=== PATIENT | female | born 1960 | race Caucasian/White ===

== ENCOUNTER 2020-01-15 13:26 | Outpatient (REF) | payer OTHER, SELFPAY ==
--- NOTE | 2020-01-15 13:30 | MM_ITS ---
EXAMINATION: MM SCREENING DIGITAL BREAST TOMOSYNTHESIS, BILATERAL CLINICAL INFORMATION: Screening. Asymptomatic. The lifetime risk of breast cancer based on the Tyrer-Cuzick Model is 7.2%. COMPARISON: Mammography: 06/12/2017 and studies dating back to 02/07/2012. TECHNIQUE: Digital breast tomosynthesis is performed in both the craniocaudal and mediolateral oblique views along with computer-aided detection (CAD). Synthesized 2D images are generated from the tomosynthesis. FINDINGS: The breasts are heterogeneously dense, which may obscure small masses (ACR BI-RADS breast composition Category c). There is a stable parenchymal pattern of the right breast with some stable circumscribed densities some of which had been shown to represent cysts previously. Within the upper outer aspect of the left breast approximately 6 cm from the nipple there is a questioned region of architectural distortion which is more prominent than on prior studies. Recommend spot compression views and ultrasound if needed. MM/MM tomosynthesis screening BI IMPRESSION: Region of architectural distortion upper outer aspect of the left breast. ASSESSMENT: BI-RADS 0: Incomplete - Need Additional Imaging Evaluation RECOMMENDATION: 1. Additional views of the left breast. 2. Targeted ultrasound if warranted after review of the additional views. 3. Radiology department staff will contact the patient for additional imaging. This patient's information was entered into a reminder system with a target due date for their next mammogram.
== END 2020-01-15 13:27 | disposition home or self-care (01) ==
LOC: HO.MAMMO 13:26
PROVIDERS: Visit Provider Internal Medicine
DX: Z12.31 Encounter for screening mammogram for malignant neoplasm of breast (principal)
CPT/HCPCS: 77063; 77067

== ENCOUNTER 2020-06-16 10:21 | Outpatient (REF) | payer SELFPAY ==
[2020-06-16 10:42] LABS: MANUAL DIFF FLAG NO
[2020-06-16 11:09] LABS: Basophils Absolute Auto 0.1 X10*3/uL (0.0-0.2); Basophils Percent Auto 0.5 % (0-2); Eosinophils Absolute Auto 0.2 X10*3/uL (0.0-0.4); Eosinophils Percent Auto 2.2 % (0-4); Hematocrit 39.1 % (37-47); Imm Gran Abs Auto 0.02 X10*3/uL (0.00-0.03); Imm Gran Pct Auto 0.2 % (0.0-0.4); Lymphocytes Absolute Auto 2.7 X10*3/uL (1.2-4.9); Lymphocytes Percent Auto 28.9 % (20-40); Mean Corpuscular HGB Conc 33.2 g/dl (31.0-35.0); Mean Corpuscular Hemoglobin 33.5 pg (27.0-33.0); Mean Corpuscular Volume 100.8 fL (80-98); Mean Platelet Volume 11.1 fL (9.4-12.3); Monocytes Absolute Auto 0.7 X10*3/uL (0.1-1.2); Monocytes Percent Auto 7.2 % (2-11); Neutrophils Absolute Auto 5.7 X10*3/uL (2.0-8.3); Platelet Count 255 X10*3/uL (160-400); Red Blood Count 3.88 X10*6/uL (4.20-5.50); Red Cell Distribution Width 11.9 % (11.0-16.0); White Blood Count 9.4 X10*3/uL (4.8-10.8)
[2020-06-16 11:39] LABS: Glucose Urine UA NEG (NEG); Leukocyte Esterase Urine 2+ (NEG); Nitrite Urine NEG (NEG); PH 7.5 (5.0-8.0); Specific Gravity - Urine <= 1.005 (1.005-1.025); Urine Blood NEG (NEG); Urine Ketones NEG (NEG); Urine Protein NEG (NEG-TRACE)
[2020-06-16 11:42] LABS: Appearance Urine HAZY; Color Urine YELLOW
[2020-06-16 12:00] LABS: Bacteria Urine 2+ /LPF; RBC Urine 0 /HPF (0); Squamous Epithelial Cell Urine 2+ /LPF
[2020-06-16 12:09] LABS: Vitamin D 25-OH Total 65.3 ng/mL (>30)
[2020-06-16 12:21] LABS: Alanine Aminotransferase 44 U/L (0-31); Albumin Level 4.3 g/dL (3.5-5.0); Alkaline Phosphatase 55 U/L (39-117); Anion Gap 17 (12-20); Aspartate Amino Transferase 46 U/L (5-31); Blood Urea Nitrogen 9 mg/dL (9-16); Calcium 9.2 mg/dL (8.4-10.2); Carbon Dioxide 29 mmol/L (22-29); Chloride 95 mmol/L (96-108); Cholesterol 237 mg/dL; Estimated Glomerular Filt Rate > 60; Glucose Fasting 90 mg/dL (60-99); HDL Cholesterol 52 mg/dL; LDL Cholesterol Calculated 139 mg/dl; Potassium 3.6 mmol/L (3.3-5.1); Sodium 137 mmol/L (135-145); Total Protein 6.6 g/dL (6.5-8.0); Triglycerides 232 mg/dL
[2020-06-16 13:22] LABS: Folate > 20.0 ng/mL (> or = 4.0); Vitamin B12 679 pg/mL (200-900)
== END 2020-06-16 10:22 | disposition home or self-care (01) ==
LOC: HO.LNP 10:21
PROVIDERS: Visit Provider Internal Medicine
DX: Z00.00 Encounter for general adult medical examination without abnormal findings (principal); I10 Essential (primary) hypertension; R79.89 Other specified abnormal findings of blood chemistry; E78.2 Mixed hyperlipidemia; R73.9 Hyperglycemia, unspecified; E53.8 Deficiency of other specified B group vitamins
CPT/HCPCS: 80053; 80061; 81001; 81003; 82306; 82607; 82746; 85025

== ENCOUNTER 2021-01-18 07:47 | Day surgery (SDC) | payer OTHER, SELFPAY ==
[2021-01-12 09:54] VITALS: BMI 28.3
--- NOTE | 2021-01-15 08:41 | HO.ANESPROP2 ---
Documented by User: Jahaira Tate NP 01/15/21 08:41 HPI - Anesthesia Eval Consult details Narrative: 60yo F for Upper Endoscopy and Colonoscopy [facility] Past Medical History Medical History (Updated 01/12/21 @ 09:45 by Teressa Reyes RN) Anxiety Asthma Depression Elevated cholesterol HTN (hypertension) Surgical History Surgical History (Updated 01/12/21 @ 09:46 by Teressa Reyes RN) H/O colonoscopy History of vocal cord polypectomy Social History Social History (Updated 01/18/21 @ 07:56 by Kevin Perez RN) Patient Tobacco Use Status: Never used Tobacco Second Hand Smoke Exposure: No Use of substances other than those prescribed or required for medical reasons: Yes Substance Use Type: Marijuana Advance Directives Information Provided: Yes (informational brochure mailed) Advance Directives on File: No Meds Allergies Allergy/AdvReac Type Severity Reaction Status Date / Time No Known Allergies Allergy Unverified 12/05/19 15:25 [No Known Allergies*] Home Medications Medication Instructions Recorded Confirmed Last Taken Type Avalide 1 tab PO DAILY 01/12/21 01/12/21 Unknown History albuterol sulfate 90 mcg/actuation 2 puff INHALATION Q4-6H PRN 01/12/21 01/12/21 Unknown History aerosol inhaler (Ventolin HFA) ascorbic acid (vitamin C) 500 mg 500 mg PO DAILY 01/12/21 01/12/21 Unknown History tablet (Vitamin C) atorvastatin 10 mg tablet 10 mg PO BEDTIME 01/12/21 01/12/21 Unknown History omeprazole 20 mg capsule,delayed 20 mg PO DAILY 01/12/21 01/12/21 Unknown History release sertraline 25 mg tablet (Zoloft) 25 mg PO DAILY 01/12/21 01/12/21 01/18/21 History vitamin B complex 1 tab PO DAILY 01/12/21 01/12/21 Unknown History Exam Exam Date and Time: January 15, 2021 0841 Height,Weight and Vital Signs: Height 5 ft 4 in Weight 74.843 kg Assessment and Plan Assessment Anesthesia Assessment: Chart Reviewed Documented by User: Milka Phan MD 01/18/21 08:08 [facility] Past Medical History Medical History (Updated 01/12/21 @ 09:45 by Teressa Reyes, KIRBY) Anxiety Asthma Depression Elevated cholesterol HTN (hypertension) Family History Family history of problems with anesthesia: No Surgical History Surgical History (Updated 01/12/21 @ 09:46 by Teressa Reyes RN) H/O colonoscopy History of vocal cord polypectomy History of Problems with Anesthesia: No Social History Social History (Updated 01/18/21 @ 07:56 by Kevin Perez RN) Patient Tobacco Use Status: Never used Tobacco Second Hand Smoke Exposure: No Use of substances other than those prescribed or required for medical reasons: Yes Substance Use Type: Marijuana Advance Directives Information Provided: Yes (informational brochure mailed) Advance Directives on File: No Meds Allergies Allergy/AdvReac Type Severity Reaction Status Date / Time No Known Allergies Allergy Unverified 12/05/19 15:25 [No Known Allergies*] Home Medications Medication Instructions Recorded Confirmed Last Taken Type Avalide 1 tab PO DAILY 01/12/21 01/12/21 Unknown History albuterol sulfate 90 mcg/actuation 2 puff INHALATION Q4-6H PRN 01/12/21 01/12/21 Unknown History aerosol inhaler (Ventolin HFA) ascorbic acid (vitamin C) 500 mg 500 mg PO DAILY 01/12/21 01/12/21 Unknown History tablet (Vitamin C) atorvastatin 10 mg tablet 10 mg PO BEDTIME 01/12/21 01/12/21 Unknown History omeprazole 20 mg capsule,delayed 20 mg PO DAILY 01/12/21 01/12/21 Unknown History release sertraline 25 mg tablet (Zoloft) 25 mg PO DAILY 01/12/21 01/12/21 01/18/21 History vitamin B complex 1 tab PO DAILY 01/12/21 01/12/21 Unknown History Exam Airway Mallampati Class: II (Upper front cap) TM Dist: >3cm Neck ROM: Full Heart: rrr Lungs: cta Assessment and Plan Assessment Anesthesia Assessment: Anesthesia Plan Discussed and Chart Reviewed Final Anesthetic Review Family History of Problems with Anesthesia: No History of Problems with Anesthesia: No NPO: Yes ASA Class: II Final Preanesthetic Review: No Changes in Pt Med Stat, Meds/Allgs Chart Reviewed and Consent Obtained/Reviewed Patient Risk: Intermediate Procedure Risk: Intermediate Anesthetic Plan Anesthetic Plan: MAC: Disposition: Standard PACU
[2021-01-18 08:05] VITALS: BP 153/85; PULSE 81; RESP 16; TEMP 36.4; O2SAT 97
[2021-01-18] MEDS: Lactated Ringers 1,000 ML 100 ML IVCONT (08:31)
[2021-01-18] MEDS: Midazolam HCl/PF 2 MG/2 ML VIAL IVPUSH (08:31)
[2021-01-18 10:09] VITALS: BP 123/54; PULSE 71; RESP 20; TEMP 36.9; O2SAT 95
--- NOTE | 2021-01-18 10:10 | P.BOP_ITS ---
Brief Operative Note Date of Service: 01/18/21 Pre-op diagnosis: GERD, Screening Post-op diagnosis: other (Gastritis, Hiatal hernia, Colon polyps) Procedure: EGD with biopsies, Colonoscopy to the cecum and TI with biopsy and removal of polyps Surgeon: Felipe Corral Anesthesia: MAC Was an [employer] used for this Procedure?: No Estimated blood loss (mL): 3.0 Pathology: other (A. Gastric antrum B. Cecal polyp C. Transverse colon polyp) Condition: stable Disposition: PACU
[2021-01-18 10:25] VITALS: BP 128/83; PULSE 68; RESP 18; TEMP 36.7; O2SAT 95
--- NOTE | 2021-01-18 10:43 | OP_ITS ---
SURGEON: Felipe Corral MD INDICATIONS: The patient presents for evaluation of gastroesophageal reflux, personal history of tubular adenoma of the colon, and need for colorectal cancer screening. Full consent has been obtained from her for this, including risks of bleeding and perforation. PREOPERATIVE DIAGNOSIS: POSTOPERATIVE DIAGNOSIS: PROCEDURE PERFORMED: Esophagogastroduodenoscopy with biopsy, and colonoscopy to the cecum and terminal ileum with biopsy and removal of polyps. ESTIMATED BLOOD LOSS: COMPLICATIONS: ANESTHESIA: Monitored anesthesia care. ASSISTANTS: SPECIMENS: PREOPERATIVE DIAGNOSES: Gastroesophageal reflux, colorectal cancer screening, and personal history of tubular adenoma of the colon. POSTOPERATIVE DIAGNOSES: Gastroesophageal reflux, colorectal cancer screening, and personal history of tubular adenoma of the colon, small hiatal hernia, gastritis, colon polyps, diverticulosis and internal hemorrhoids. DESCRIPTION OF PROCEDURE: The patient was placed in the left lateral decubitus position. The Olympus video gastroscope was passed in the posterior oropharynx and upper esophagus under direct vision. The scope was passed slowly into the distal esophagus. The gastroesophageal junction appeared normal at 38 cm. There was no sign of any esophagitis nor Schmidt's esophagus. There were no varices. The scope entered into the stomach. There was a small hiatal hernia. The scope was advanced to pylorus and duodenum was cannulated to the descending portion. The duodenum including the bulb appeared normal without mass or ulceration. The scope was withdrawn back into the stomach. The gastric antrum and body had changes of some edema and erythema, but no erosions or ulceration. There was good peristalsis. Biopsies were obtained from the gastric antrum. Scope was retroflexed visualizing the proximal stomach carefully, which appeared normal, without any sign of mass, ulceration, varices, nor portal gastropathy. The scope was straightened out and withdrawn back into the esophagus. The esophageal mucosa appeared normal. Scope was withdrawn from the patient. She was turned around for colonoscopy. The digital rectal exam revealed no abnormalities. The Olympus video pediatric colonoscope was entered into the rectum and advanced easily to the cecum. Once in the cecum, I did identify normal-appearing cecal pouch with appendiceal orifice and a normal-appearing ileocecal valve. The terminal ileum was cannulated and appeared normal. The scope was withdrawn back in the colon. The entire cecum and ileocecal valve appeared normal. The scope was slowly withdrawn assessing all mucosal surfaces carefully. There was a fair amount of some liquid greenish stool throughout the colon, but this was all irrigated copiously and suctioned away. For the most part, preparation was very good. In the cecum and transverse colon, were flat less than 5 mm polyps, which were each biopsied and completely removed with cold biopsy forceps. I did not visualize any other polyps, colitis, nor angiodysplasia. There was a moderate amount of sigmoid diverticulosis. The colon did appear somewhat edematous, but there was no colitis. In the rectum, scope was retroflexed visualizing internal hemorrhoids, but no other pathology. The rectal mucosa appeared normal. The scope was straightened out and withdrawn from the patient. She tolerated the both procedures well and was returned to recovery area in stable condition. IMPRESSION: 1. Colon polyps, status post biopsy and removal. 2. Diverticulosis. 3. Internal hemorrhoids. 4. Small hiatal hernia. 5. Gastritis. PLAN: The results of the biopsy will be checked. I would recommend a repeat colonoscopy in 5 years for further surveillance. She will continue her daily omeprazole. As in the past, she has been advised to eliminate alcohol from her lifestyle. She will see me otherwise on a p.r.n. basis. MD KRISTA Tan/JANAK / [id number]
== END 2021-01-18 11:16 | disposition home or self-care (01) ==
PROVIDERS: PCP Internal Medicine; Visit Provider Internal Medicine
PROC: (CPT 45380; principal; 2021-01-18 09:10)
DX: Z12.11 Encounter for screening for malignant neoplasm of colon (principal); Z86.010 Personal history of colon polyps; D12.0 Benign neoplasm of cecum; D12.3 Benign neoplasm of transverse colon; K57.30 Diverticulosis of large intestine without perforation or abscess without bleeding; K64.8 Other hemorrhoids; K21.9 Gastro-esophageal reflux disease without esophagitis; K29.50 Unspecified chronic gastritis without bleeding; K44.9 Diaphragmatic hernia without obstruction or gangrene; R74.8 Abnormal levels of other serum enzymes; J45.909 Unspecified asthma, uncomplicated; I10 Essential (primary) hypertension; Z79.899 Other long term (current) drug therapy; F12.90 Cannabis use, unspecified, uncomplicated
CPT/HCPCS: 45380; 43239; 88305; 88342; J2250; J3010

== ENCOUNTER 2021-03-02 07:15 | Outpatient (REF) | payer OTHER, SELFPAY ==
--- NOTE | ~2021-03-02 | XR_ITS ---
EXAMINATION: XR KNEES STANDING, BILATERAL XR KNEE, RIGHT CLINICAL INFORMATION: Pain in unspecified knee. COMPARISON: None TECHNIQUE: AP standing view of both knees is obtained. Lateral and sunrise views of the right knee are obtained. FINDINGS: RIGHT KNEE: There is no acute fracture, malalignment, or joint effusion. There is a tiny lateral patellar marginal spur. There is [id number] narrowing in the medial compartment with small marginal osteophytes. There is a small loose body in the anterior joint. LEFT KNEE: Limited AP view demonstrates mild medial compartment narrowing. XR/XR knee RT 2V IMPRESSION: RIGHT KNEE: Moderate medial compartment osteoarthritis. Anterior loose body. LEFT KNEE: Limited AP view demonstrates mild medial compartment narrowing.
--- NOTE | ~2021-03-02 | XR_ITS ---
EXAMINATION: XR KNEES STANDING, BILATERAL XR KNEE, RIGHT CLINICAL INFORMATION: Pain in unspecified knee. COMPARISON: None TECHNIQUE: AP standing view of both knees is obtained. Lateral and sunrise views of the right knee are obtained. FINDINGS: RIGHT KNEE: There is no acute fracture, malalignment, or joint effusion. There is a tiny lateral patellar marginal spur. There is shkq-fl-yyesqbpa narrowing in the medial compartment with small marginal osteophytes. There is a small loose body in the anterior joint. LEFT KNEE: Limited AP view demonstrates mild medial compartment narrowing. XR/XR knee standing BI IMPRESSION: RIGHT KNEE: Moderate medial compartment osteoarthritis. Anterior loose body. LEFT KNEE: Limited AP view demonstrates mild medial compartment narrowing.
== END 2021-03-02 07:16 | disposition home or self-care (01) ==
LOC: HO.HOSX 07:15
PROVIDERS: Visit Provider Physician Assistant
DX: M17.11 Unilateral primary osteoarthritis, right knee (principal)
CPT/HCPCS: 20610; 73560; 73565; J1040

== ENCOUNTER 2021-03-16 11:17 | Outpatient (REF) | payer OTHER, SELFPAY ==
--- NOTE | ~2021-03-16 | MM_ITS ---
EXAMINATION: MM SCREENING DIGITAL BREAST TOMOSYNTHESIS, BILATERAL CLINICAL INFORMATION: Screening. Asymptomatic. The lifetime risk of breast cancer based on the Tyrer-Cuzick Model is 7%. COMPARISON: Mammography: 01/15/2020, 06/12/2017, 12/29/2015, 06/23/2015, 06/02/2015 TECHNIQUE: Digital breast tomosynthesis is performed in both the craniocaudal and mediolateral oblique views along with computer-aided detection (CAD). Synthesized 2D images are generated from the tomosynthesis. FINDINGS: The breasts are heterogeneously dense, which may obscure small masses (ACR BI-RADS breast composition Category c). There are no significant masses, abnormal calcifications, or other abnormalities. There is no architectural abnormality or developing density. There is fine fibronodular parenchymal pattern similar to prior exams. Scattered punctate regional calcifications in the upper outer quadrant are stable. The axilla and skin contours are unremarkable. MM/MM tomosynthesis screening BI IMPRESSION: No mammographic evidence of malignancy. ASSESSMENT: BI-RADS 2: Benign RECOMMENDATION: Routine annual mammography screening. This patient's information was entered into a reminder system with a target due date for their next mammogram.
--- NOTE | ~2021-03-16 | MM_ITS ---
EXAMINATION: BONE DENSITOMETRY CLINICAL INDICATION: Osteopenia. COMPARISON: Previous BD dated 05/01/2018 and baseline BD dated 12/29/2015. TECHNIQUE: Using a Woto DXA System (software version: 13.1) manufactured by [employer], dual-energy x-ray absorptiometry was performed of the lumbar spine and left hip. The images are of good technical quality. Summary results are attached. FINDINGS: AP SPINE L1-L4: Current: BMD 0.999 g/cm2, Z-score -0.6, T-score -1.5, osteopenia, 2.1% increase from previous, 4.3% increase from baseline (<5% change is not significant). Prior: BMD 0.978 g/cm2. Baseline: BMD 0.958 g/cm2. LEFT FEMUR, NECK: Current: BMD 0.866 g/cm2, Z-score -0.2, T-score -1.2, osteopenia. Prior: BMD 0.824 g/cm2. Baseline: BMD 0.856 g/cm2. LEFT FEMUR, TOTAL: Current: BMD 0.898 g/cm2, Z-score -0.2, T-score -0.9, normal, 1.6% increase from previous, 2.4% increase from baseline (<5% change is not significant). Prior: BMD 0.884 g/cm2. Baseline: BMD 0.877 g/cm2. IDENTIFIED RISK FACTORS: Rheumatoid arthritis, menopause. HISTORY OF FRACTURE: Ankle (noted on prior bone density report 2019). MEDICATIONS: Calcium supplements or multivitamin, vitamin D. MM/XR DEXA axial skeleton IMPRESSION: 1. DIAGNOSIS: Osteopenia based on the lowest T-score value of -1.5 in the lumbar spine applying World Health Organization criteria. 2. 10-YEAR FRACTURE RISK PREDICTION, FRAX: Major osteoporotic fracture (clinical spine, forearm, hip or shoulder) 9.3%. Hip fracture 0.7%. 3. Treatment Recommendations: NOF guidelines recommend consideration for treatment in postmenopausal women and men age 50 and older presenting with the following: -A hip or vertebral (clinical or morphometric) fracture. -T-score less than or equal to -2.5 at the femoral neck or spine after appropriate evaluation to exclude secondary causes. -Low bone mass at the hip or spine and a 10-year fracture probability by FRAX of greater than or equal to 3% for hip fracture or greater than or equal to 20% for major osteoporotic fracture based on the [place] adapted WHO algorithm. 4. Other Recommendations: All treatment decisions require clinical judgment and consideration of individual patient factors, including patient preferences, comorbidities, previous drug use, risk factors not captured in the FRAX model (e.g. frailty, falls, vitamin D deficiency, increased bone turnover, interval significant decline in bone density) and possible under or overestimation of fracture risk by FRAX. Additional medical evaluation for secondary cause of low bone mineral density may be appropriate. FUTURE SCAN RECOMMENDATION: People with diagnosed cases of osteoporosis or at high risk for fracture should have regular bone mineral density tests. For patients eligible for Medicare, routine testing is allowed once every 2 years. The testing frequency can be increased to one year for patients who have rapidly progressing disease, those who are receiving or discontinuing medical therapy to restore bone mass, or have additional risk factors.
== END 2021-03-16 11:18 | disposition home or self-care (01) ==
LOC: HO.MAMMO 11:17
PROVIDERS: Visit Provider Internal Medicine
DX: Z12.31 Encounter for screening mammogram for malignant neoplasm of breast (principal); Z13.820 Encounter for screening for osteoporosis; M85.80 Other specified disorders of bone density and structure, unspecified site; Z78.0 Asymptomatic menopausal state; M05.9 Rheumatoid arthritis with rheumatoid factor, unspecified; Z79.899 Other long term (current) drug therapy
CPT/HCPCS: 77063; 77067; 77080

== ENCOUNTER 2021-07-27 12:21 | Outpatient (REF) | payer OTHER, SELFPAY ==
--- NOTE | ~2021-07-27 | XR_ITS ---
EXAMINATION: XR KNEE, LEFT CLINICAL INFORMATION: Knee pain. COMPARISON: Left knee 03/02/2021. TECHNIQUE: Lateral and sunrise view of the left knee. FINDINGS: There is minimal loss of lateral patellofemoral compartment joint space but no abnormal joint effusion seen. Previously medial compartment joint space narrowing was noted. AP view is not obtained. There is no abnormal joint effusion. No bony erosive changes. XR/XR knee LT 2V IMPRESSION: Minimal degenerative changes patellofemoral compartment. On previous AP view medial compartment joint space was narrowed as well. No abnormal joint effusion or loose body seen.
== END 2021-07-27 12:22 | disposition home or self-care (01) ==
LOC: HO.HOSX 12:21
PROVIDERS: PCP Internal Medicine; Visit Provider Physician Assistant
DX: M76.72 Peroneal tendinitis, left leg (principal)
CPT/HCPCS: 73560

== ENCOUNTER 2021-11-30 15:15 | Outpatient (REF) | payer OTHER, SELFPAY ==
--- NOTE | ~2021-11-30 | US_ITS ---
EXAMINATION: US VENOUS ULTRASOUND WITH DOPPLER LOWER EXTREMITY, LEFT CLINICAL INFORMATION: Left lower extremity pain COMPARISON: Bilateral DVT study 06/29/2018 TECHNIQUE: Ultrasound of the deep veins is performed from the hip to the calf with compression sonography and color and pulse Doppler assessment. Spectral analysis with color-flow imaging is performed. FINDINGS: There is normal venous compression and respiratory variation and augmented flow. The visualized common femoral vein, superficial femoral vein, profunda femoral vein, popliteal vein, and the trifurcation region shows no evidence of deep venous thrombosis. There is a fluid collection seen extending from the popliteal fossa to the mid calf measuring 6.1 x 2.4 cm which contains a single septation. If the patient's symptoms persist, followup ultrasound in 5 days 7 days might be of value to exclude proximal propagation from a non-visualized calf vein. US/US venous duplex LE IMPRESSION: No DVT demonstrated in the left lower extremity.
[2021-11-30 16:16] LABS: Appearance Urine Clear; Color Urine Yellow; Glucose Urine UA Negative (Negative); Leukocyte Esterase Urine Trace (Negative); Nitrite Urine Negative (Negative); UMIC TRIGGER UA YES; Urine Blood Negative (Negative); Urine Ketones Trace mg/dL (Negative); Urine Protein Negative (Neg-Trace)
[2021-11-30 16:20] LABS: Bacteria Urine None Seen (None Seen); Hyaline Casts Urine 0-2 /LPF (0-2); RBC Urine 0-2 /HPF (0-2); Squamous Epithelial Cell Urine 0-2 /HPF (0-2); WBC Urine 0-5 /HPF (0-5)
== END 2021-11-30 15:16 | disposition home or self-care (01) ==
LOC: HO.US 15:15
PROVIDERS: PCP Internal Medicine; Visit Provider Internal Medicine
DX: I82.562 Chronic embolism and thrombosis of left calf muscular vein (principal); R35.89 Other polyuria
CPT/HCPCS: 81001; 87086; 93971

== ENCOUNTER → 2021-12-16 10:11 | Outpatient (BNVA) | payer OTHER, SELFPAY | PROVIDERS: PCP Internal Medicine; Visit Provider Physician Assistant | DX: M17.11 Unilateral primary osteoarthritis, right knee (principal); M17.12 Unilateral primary osteoarthritis, left knee | CPT/HCPCS: 20610; J1040 ==

== ENCOUNTER 2022-11-14 14:55 | Outpatient (AMB) | payer OTHER, SELFPAY ==
--- NOTE | 2022-11-14 15:09 | MHC.OFFVIS ---
Intake Vital Signs 11/14/22 15:11 Height 5 ft 4 in Weight 165 lb BMI 28.3 Intake Visit Reasons: OV- RT Knee pain Last INJ 12/16/21 Intake Note: Tameka a 62 year old female who presents today for a follow up of right knee. Patient reports last injection lasted until recently and would like to repeat injection today. Allergies No Known Allergies [No Known Allergies*] Allergy (Unverified 12/16/21 10:52) HPI OV- RT Knee pain Last INJ 12/16/21 HPI Details 62-year-old female who presents in the office today for a follow up of right knee pain. The patient had a cortisone injection in the right knee on 12/16/2021. She reports the last injection last until recently. She would like another cortisone injection while in the office today. [facility] Medical History Anxiety Asthma Depression Elevated cholesterol HTN (hypertension) Surgical History H/O colonoscopy History of vocal cord polypectomy Social History Household Members: Spouse Patient Tobacco Use Status: Never used Tobacco Second Hand Smoke Exposure: No Substance Use Type: Marijuana Current occupational status: retired Current occupation: rt handed Review of Systems Const All systems reviewed & are unremarkable except as noted in HPI and below Physical Exam Vital Signs: BMI result Body Mass Index 28.3 Const General: cooperative, healthy appearing and no acute distress Resp Effort & Inspection: normal respiratory effort and able to speak in complete sentences Cardio Rate: regular rate Peripheral pulses: Peripheral pulses 2+ throughout GI Palpation (GI): Soft to palpation Skin Lesions: no lesions Rashes: no rashes Extrem Other: Right knee: Normal to inspection. No ecchymosis, erythma, or joint effusion. Patient is able to achieve full range of motion. There is crepitus felt with knee range of motion. Slight tenderness to palpation over the medial joint line. No tenderness to palpation over lateral joint line. Negative Guanako's. Negative anterior drawer. NVI. Office Procedures Joint Injection/Drain Joint Injection/Drain Primary Site: right knee Prep: site was prepped using aseptic technique, ethochloride spray was applied and injection warnings given Injected: 80 mg of, DepoMedrol, with 8 mL of (2% plain lido ) and in the joint Approach Used: anterolateral Procedure: The patient tolerated the procedure well, but had some pain with the injection and there was some relief with the local anesthesia Coding - Large joint Procedure code (CPT) selection complete Results Reviewed Results Reviewed: 11/14/22 15:09 Lidocaine HCl 2 % MPF [Xylocaine 2 % MPF] 5 ml .ROUTE .STK-MED ONE methylPREDNISolone acetate [DEPO-MedroL] 80 mg .ROUTE .STK-MED ONE Assessment & Plan Assessment & Plan (1) Osteoarthritis of right knee: Code(s): M17.11 - Unilateral primary osteoarthritis, right knee Plan Ms. Griggs is a 62-year-old female who presents in the office today for a follow up of right knee pain. The patient had a cortisone injection in the right knee on 12/16/2021. She reports the last injection last until recently. She would like another cortisone injection while in the office today. The patient was offered a cortisone injection in the right knee with 80 mg of DepoMedrol. The patient was explained the risk, benefits, and alternatives to receiving this injection. After receiving consent for the injection, the patient had the procedure done while in office today. The patient tolerated the procedure well with no complications. Follow up will be PRN, or sooner if needed. Patient Instructions: Scribed for Deborah Melendez PA-C by Johana Brunner medical terminologist, on 11/14/2022 at 2:57 pm, EST. Coding Level of Care Code Est Pt Level 3 (12504) Diagnoses Osteoarthritis of right knee M17.11 CPT Codes Coding - Large joint: 40773 - Large joint ([id number])
[2022-11-14 15:11] VITALS: BMI 28.3
== END 2022-11-14 15:43 | disposition home or self-care (01) ==
PROVIDERS: PCP Internal Medicine; Visit Provider Physician Assistant
DX: M17.11 Unilateral primary osteoarthritis, right knee (principal)
CPT/HCPCS: 20610; 99213

== ENCOUNTER → 2022-11-14 14:55 | Outpatient (BNVA) | payer OTHER, SELFPAY | PROVIDERS: PCP Internal Medicine; Visit Provider Physician Assistant | DX: M17.11 Unilateral primary osteoarthritis, right knee (principal) | CPT/HCPCS: 20610; J1040 ==

== ENCOUNTER 2023-02-03 11:03 | Outpatient (REF) | payer OTHER, SELFPAY ==
[2023-02-03 11:08] LABS: MANUAL DIFF FLAG NO
[2023-02-03 11:16] LABS: Basophils Percent Auto 0.5 % (0-2); Eosinophils Absolute Auto 0.2 X10*3/uL (0.0-0.4); Eosinophils Percent Auto 2.2 % (0-4); Hematocrit 37.4 % (37.0-47.0); Hemoglobin 12.5 g/dl (12.0-16.0); Imm Gran Abs Auto 0.04 X10*3/uL (0.00-0.03); Imm Gran Pct Auto 0.5 % (0.0-0.4); Lymphocytes Absolute Auto 1.9 X10*3/uL (1.2-4.9); Lymphocytes Percent Auto 21.9 % (20-40); Mean Corpuscular HGB Conc 33.4 g/dl (31.0-35.0); Mean Corpuscular Hemoglobin 33.6 pg (27.0-33.0); Mean Corpuscular Volume 100.5 fL (80.0-98.0); Mean Platelet Volume 10.6 fL (9.4-12.3); Monocytes Absolute Auto 0.6 X10*3/uL (0.1-1.2); Monocytes Percent Auto 6.9 % (2-11); Neutrophils Absolute Auto 5.8 x10*3/uL (2.0-8.3); Platelet Count 246 X10*3/uL (160-400); Red Blood Count 3.72 X10*6/uL (4.20-5.50); Red Cell Distribution Width 13.2 % (11.0-16.0); White Blood Count 8.5 X10*3/uL (4.8-10.8)
[2023-02-03 11:28] LABS: Appearance Urine Clear; Color Urine Dark Yellow; Glucose Urine UA Negative (Negative); Leukocyte Esterase Urine Moderate (2+) (Negative); Nitrite Urine Negative (Negative); Specific Gravity - Urine 1.015 (1.005-1.025); UMIC TRIGGER UACC YES; Urine Blood Negative (Negative); Urine Ketones Negative (Negative); Urine Protein Negative (Neg-Trace)
[2023-02-03 11:32] LABS: Bacteria Urine None Seen (None Seen); Hyaline Casts Urine 0-2 /LPF (0-2); RBC Urine 0-2 /HPF (0-2); UACC Culture Trigger YES
[2023-02-03 11:48] LABS: Alanine Aminotransferase 23 U/L (0-31); Alkaline Phosphatase 57 U/L (39-117); Anion Gap 11 (12-20); Aspartate Amino Transferase 43 U/L (5-31); Bilirubin Total 0.6 mg/dL (0.0-1.0); Blood Urea Nitrogen 9 mg/dL (9-16); Calcium 9.8 mg/dL (8.4-10.2); Carbon Dioxide 32 mmol/L (22-29); Chloride 99 mmol/L (96-108); Cholesterol 218 mg/dL (<200); Estimated Glomerular Filt Rate > 60; Glucose Fasting 117 mg/dL (60-99); HDL Cholesterol 56 mg/dL (>40); LDL Cholesterol Calculated 139 mg/dL (<100); Potassium 3.9 mmol/L (3.3-5.1); Sodium 138 mmol/L (135-145); Total Protein 6.7 g/dL (6.5-8.0); Triglycerides 118 mg/dL (<150)
[2023-02-03 12:17] LABS: Folate 13.9 ng/mL (> or = 4.0); Vitamin B12 1092 pg/mL (200-900)
== END 2023-02-03 11:04 | disposition home or self-care (01) ==
LOC: HO.LNP 11:03
PROVIDERS: Visit Provider Internal Medicine
DX: Z00.00 Encounter for general adult medical examination without abnormal findings (principal); E53.8 Deficiency of other specified B group vitamins; E78.2 Mixed hyperlipidemia; I10 Essential (primary) hypertension; R82.90 Unspecified abnormal findings in urine
CPT/HCPCS: 80053; 80061; 81001; 82607; 82746; 85025; 87086

== ENCOUNTER 2023-03-28 15:44 | Outpatient (REF) | payer OTHER, SELFPAY ==
[2023-03-28 15:49] LABS: MANUAL DIFF FLAG NO
[2023-03-28 16:00] LABS: Basophils Percent Auto 0.6 % (0-2); Eosinophils Absolute Auto 0.1 X10*3/uL (0.0-0.4); Eosinophils Percent Auto 1.9 % (0-4); Hematocrit 37.2 % (37.0-47.0); Hemoglobin 12.3 g/dl (12.0-16.0); Imm Gran Abs Auto 0.02 X10*3/uL (0.00-0.03); Imm Gran Pct Auto 0.3 % (0.0-0.4); Lymphocytes Absolute Auto 1.4 X10*3/uL (1.2-4.9); Lymphocytes Percent Auto 19.6 % (20-40); Mean Corpuscular HGB Conc 33.1 g/dl (31.0-35.0); Mean Corpuscular Hemoglobin 33.3 pg (27.0-33.0); Mean Corpuscular Volume 100.8 fL (80.0-98.0); Mean Platelet Volume 10.8 fL (9.4-12.3); Monocytes Absolute Auto 0.6 X10*3/uL (0.1-1.2); Monocytes Percent Auto 8.1 % (2-11); Neutrophils Percent Auto 69.5 % (45-73); Platelet Count 230 X10*3/uL (160-400); Red Blood Count 3.69 X10*6/uL (4.20-5.50); Red Cell Distribution Width 13.1 % (11.0-16.0); White Blood Count 7.2 X10*3/uL (4.8-10.8)
[2023-03-28 16:09] LABS: Rheumatoid Factor < 13.0 IU/mL (<15.0)
[2023-03-28 16:17] LABS: Blood Urea Nitrogen 11 mg/dL (9-16); Estimated Glomerular Filt Rate > 60
[2023-03-28 16:32] LABS: TSH reflex Free T4 0.65 uIU/mL (0.32-4.0)
[2023-03-28 16:40] LABS: Erythrocyte Sedimentation Rate 18 MM/HR (0-20)
== END 2023-03-28 15:45 | disposition home or self-care (01) ==
LOC: HO.LNP 15:44
PROVIDERS: Visit Provider Internal Medicine
DX: R60.0 Localized edema (principal)
CPT/HCPCS: 82565; 84443; 84520; 85025; 85652; 86431

== ENCOUNTER 2024-02-13 13:10 | Outpatient (REF) | payer OTHER, SELFPAY ==
[2024-02-13 13:48] LABS: MANUAL DIFF FLAG NO
[2024-02-13 14:06] LABS: Basophils Percent Auto 0.5 % (0-2); Eosinophils Absolute Auto 0.2 X10*3/uL (0.0-0.4); Eosinophils Percent Auto 2.7 % (0-4); Hematocrit 37.3 % (37.0-47.0); Hemoglobin 12.7 g/dl (12.0-16.0); Imm Gran Abs Auto 0.04 X10*3/uL (0.00-0.03); Imm Gran Pct Auto 0.5 % (0.0-0.4); Lymphocytes Absolute Auto 1.5 X10*3/uL (1.2-4.9); Lymphocytes Percent Auto 18.8 % (20-40); Mean Corpuscular Hemoglobin 32.2 pg (27.0-33.0); Mean Corpuscular Volume 94.7 fL (80.0-98.0); Mean Platelet Volume 10.2 fL (9.4-12.3); Monocytes Absolute Auto 0.5 X10*3/uL (0.1-1.2); Monocytes Percent Auto 6.6 % (2-11); Neutrophils Absolute Auto 5.6 x10*3/uL (2.0-8.3); Neutrophils Percent Auto 70.9 % (45-73); Platelet Count 209 X10*3/uL (160-400); Red Blood Count 3.94 X10*6/uL (4.20-5.50); Red Cell Distribution Width 12.8 % (11.0-16.0); White Blood Count 7.9 X10*3/uL (4.8-10.8)
[2024-02-13 14:09] LABS: Appearance Urine Clear; Color Urine Yellow; Glucose Urine UA Negative (Negative); Leukocyte Esterase Urine Large (3+) (Negative); Nitrite Urine Negative (Negative); Specific Gravity - Urine 1.015 (1.005-1.025); UMIC TRIGGER UACC YES; Urine Blood Negative (Negative); Urine Ketones Negative (Negative); Urine Protein Negative (Neg-Trace)
[2024-02-13 14:16] LABS: Bacteria Urine None Seen (None Seen); Hyaline Casts Urine 0-2 /LPF (0-2); RBC Urine 0-2 /HPF (0-2); Squamous Epithelial Cell Urine 0-2 /HPF (0-2); UACC Culture Trigger YES; WBC Urine >50 /HPF (0-5)
[2024-02-13 14:26] LABS: Alanine Aminotransferase 51 U/L (0-31); Albumin Level 4.4 g/dL (3.5-5.0); Alkaline Phosphatase 58 U/L (39-117); Anion Gap 12 (12-20); Aspartate Amino Transferase 59 U/L (5-31); Bilirubin Direct 0.4 mg/dL (0.0-0.5); Bilirubin Total 1.2 mg/dL (0.0-1.0); Blood Urea Nitrogen 15 mg/dL (9-16); Calcium 9.6 mg/dL (8.4-10.2); Carbon Dioxide 30 mmol/L (22-29); Chloride 97 mmol/L (96-108); Cholesterol 226 mg/dL (<200); Estimated Glomerular Filt Rate > 60; Glucose Fasting 129 mg/dL (60-99); HDL Cholesterol 49 mg/dL (>40); LDL Cholesterol Calculated 144 mg/dL (<100); Potassium 3.8 mmol/L (3.3-5.1); Sodium 135 mmol/L (135-145); Triglycerides 168 mg/dL (<150)
[2024-02-13 14:49] LABS: Vitamin B12 1502 pg/mL (200-900)
== END 2024-02-13 13:11 | disposition home or self-care (01) ==
LOC: HO.LAB 13:10
PROVIDERS: PCP Internal Medicine; Visit Provider Internal Medicine
DX: Z00.00 Encounter for general adult medical examination without abnormal findings (principal); E78.2 Mixed hyperlipidemia; R79.89 Other specified abnormal findings of blood chemistry; E53.8 Deficiency of other specified B group vitamins; I10 Essential (primary) hypertension
CPT/HCPCS: 36415; 80053; 80061; 80076; 81001; 82248; 82607; 85025; 87086

== ENCOUNTER 2024-04-18 15:25 | Outpatient (REF) | payer OTHER, SELFPAY ==
[2024-04-18 15:42] LABS: Appearance Urine Clear; Color Urine Yellow; Glucose Urine UA Negative (Negative); Leukocyte Esterase Urine Large (3+) (Negative); Nitrite Urine Negative (Negative); PH 5.5 (5.0-9.0); UMIC TRIGGER UACC YES; Urine Blood Negative (Negative); Urine Ketones Negative (Negative); Urine Protein Negative (Neg-Trace)
[2024-04-18 15:50] LABS: Bacteria Urine None Seen (None Seen); Calcium Oxalate Crystals Urine Present; Hyaline Casts Urine 0-2 /LPF (0-2); RBC Urine 0-2 /HPF (0-2); Squamous Epithelial Cell Urine 0-2 /HPF (0-2); UACC Culture Trigger YES; WBC Urine 21-50 /HPF (0-5)
--- OUTSIDE RECORDS SUMMARY | 2024-04-18 19:10 | XMS_ITS ---
Author Organization Pedro Pablo Baker MD Address [address] [place], [place] [phone] Care Team Providers Care Belt Conveyor Drier Name Role Phone Pedro Pablo Baker Primary Care Provider [phone] Results Component Value Reference Range Notes Complete Blood Count Auto Di ff Reviewed date:02/13/2024 06:20:10 PM Interpretation: Performing Lab:[facility], [address] [place] [phone] Notes/Report: White Blood Count 7.9 4.8-10.8 X10*3/uL [...] NRBC Abs Auto 0.000 0.0-0.012 X10*3/uL Comprehensive [place]. Panel Fa st Reviewed date:02/13/2024 06:19:05 PM Interpretation: Performing Lab:[facility], [address] [place] [phone] Notes/Report: Sodium 135 135-145 mmol/L Potassium 3.8 [...] Panel Reviewed date:02/13/2024 06:17:29 PM Interpretation: Performing Lab:[facility], [address] [place] [phone] Notes/Report: Bilirubin Direct 0.4 0.0-0.5 mg/dL Lipid Panel Reviewed date:02/13/2024 06:13:00 PM Interpretation: Performing Lab:[facility], [address] [place] [phone] Notes/Report: Triglycerides 168 <150 mg/dL Desirable Triglyceride: [...] B12 Reviewed date:02/13/2024 06:15:55 PM Interpretation: Performing Lab:[facility], [address] [place] [phone] Notes/Report: Vitamin B12 1502 200-900 pg/mL NORMAL 200-900 PG/ML INDETERMINATE 160-199 PG/ML DEFICIENT < 160 PG/ML UA ClnCatch+Micro w/rflx Cul t Reviewed date:02/13/2024 06:26:22 PM Interpretation: Performing Lab:[facility], [address] [place] [phone] Notes/Report: Urine, Clean Catch Color Urine Yellow Appearance Urine Clear PH 7.0 5.0-9.0 Glucose Urine UA Negative Negative mg/dL Urine Blood Negative Negative Specific [place] - Urine 1.015 1.005-1.025 Urine Protein Negative [...] Complex - as directed Orally Active Nystatin 781254 UNIT/GM 1 application Ex ternally Twice a [...] Date Provider Diagnosis Pedro Pablo Baker MD [address] [place] [address] [address] [place], [place] [phone] 02/12/2024 Pedro Pablo Baker Annual physical exam [...] hypertension (ICD-10 - I10) Plan Of Treatment Pending Test Test Name Order Date PSA,Total (Free>4and<10) 02/12/2024 Next Appt Details Provider Name:Pedro Pablo newton, 07/18/2024 01:30:00 PM, [address] [place] [address], [phone], Provider Name:Pedro Pablo newton, 04/15/2025 07:45:00 AM, [address] [place] [address], [address], [phone], Provider Name:Pedro Pablo newton, 04/21/2025 01:00:00 PM, [address] [place] [address], [id number], Progress Notes * Tameka LIMA SDOB:1960 (63 yo F)Acc No.[id number]:02/12/2024 Progress Note Patient:?Tameka LIMA Provider:?Pedro Pablo Baker MD :1960???Age:63 Y???Sex:Female D ate:02/12/2024 Address:[address] [place] [address], [id number] Subjective: * Chief Complaints: * ???1. Yearly fasting labs. * Medical History:? * Medications:?Taking Super B- 50 B Complex - Capsule as directed Orally [...] BY MOUTH EVERY DAY , Taking Nystatin 295540 UNIT/GM Cream 1 application Externally Twice a [...] area Externally Once a day Objective: * Vitals:? Assessment: * Assessment: 1.?Annual physical exam - Z0 0.00 (Primary)???2.?Elevated cholesterol with elevated triglycerides - E78.2???3.?Elevated LFTs - R79.89???4.?Vitamin B12 deficiency - E53.8???5.?Essential hypertension - I10??? Plan: * Treatment: 2.?Elevated cholesterol with elevated triglycerides?LAB: PSA,Total (Free>4and<10) ?LAB: Complete Blood Count Auto Diff (Collection Date & Time - 02/13/2024 01:43 PM) ?LAB: Comprehensive [place]. Panel Fast (Collection Date & Time - 02/13/2024 01:43 PM) ?LAB: Liver Panel (Collection Date & Time - 02/13/2024 01:43 PM) ?LAB: Lipid Panel (Collection Date & Time - 02/13/2024 01:43 PM) ?LAB: Vitamin B12 (Collection Date & Time - 02/13/2024 01:43 PM) ?LAB: UA ClnCatch+Micro w/rflx Cult (Collection Date & Time - 02/13/2024 01:36 PM) 3.?Elevated LFTs?LAB: PSA,Total (Free>4and<10) ?LAB: Complete Blood Count Auto Diff (Collection Date & Time - 02/13/2024 01:43 PM) ?LAB: Comprehensive [place]. Panel Fast (Collection Date & Time - 02/13/2024 01:43 PM) ?LAB: Liver Panel (Collection Date & Time - 02/13/2024 01:43 PM) ?LAB: Lipid Panel (Collection Date & Time - 02/13/2024 01:43 PM) ?LAB: Vitamin B12 (Collection Date & Time - 02/13/2024 01:43 PM) ?LAB: UA ClnCatch+Micro w/rflx Cult (Collection Date & Time - 02/13/2024 01:36 PM) 4.?Vitamin B12 deficiency?LAB: PSA,Total (Free>4and<10) ?LAB: Complete Blood Count Auto Diff (Collection Date & Time - 02/13/2024 01:43 PM) ?LAB: Comprehensive [place]. Panel Fast (Collection Date & Time - 02/13/2024 01:43 PM) ?LAB: Liver Panel (Collection Date & Time - 02/13/2024 01:43 PM) ?LAB: Lipid Panel (Collection Date & Time - 02/13/2024 01:43 PM) ?LAB: Vitamin B12 (Collection Date & Time - 02/13/2024 01:43 PM) ?LAB: UA ClnCatch+Micro w/rflx Cult (Collection Date & Time - 02/13/2024 01:36 PM) 5.?Essential hypertension?LAB: PSA,Total (Free>4and<10) ?LAB: Complete Blood Count Auto Diff (Collection Date & Time - 02/13/2024 01:43 PM) ?LAB: Comprehensive [place]. Panel Fast (Collection Date & Time - 02/13/2024 01:43 PM) ?LAB: Liver Panel (Collection Date & Time - 02/13/2024 01:43 PM) ?LAB: Lipid Panel (Collection Date & Time - 02/13/2024 01:43 PM) ?LAB: Vitamin B12 (Collection Date & Time - 02/13/2024 01:43 PM) ?LAB: UA ClnCatch+Micro w/rflx Cult (Collection Date & Time - 02/13/2024 01:36 PM) * * The named appointment provid er may or may not be the originator of this progress note, and it is not deemed complete until electronically signed by the appointment provider. Sign off status: Pending * Provider:?Pedro Pablo Baker MD Date:?1 04/13/2023 Generated for Wallace crowley/Jackson/Derrickitting on:?04/18/2024 07:10 PM EST
--- OUTSIDE RECORDS SUMMARY | 2024-04-18 19:10 | XMS_ITS | Encounter Summary ---
Author Organization [facility] Address [address] [place] [address] Care Team Providers Care Residential Insurance Inspector Name Role Phone Pedro Pablo Baker MD Primary Care Provider Unav ailable Reason for Visit * Auth/Cert (Routine) Specialty Diagnoses / Procedures Referred By Tavares howard Referred To Contact Diagnoses Ganglion cyst of finger ganglion cyst Procedures SD EXCISION LESION TENDON SHEATH/JOINT CAPSULE HAND/FINGER EXCISION RIGHT FINGER GANGLION Angie Carney MD [address] [phone] [facility] Or [address] [place] [phone] Referral ID Status Reason Start Date Expiration Date Visits Re quested Visits Authorized [id number] 1 1 Encounter Details Date Type Department Care Team (Latest Contact Info) Description 04/12/2024 8:44 AM EST - 04/12/2024 10:32 AM EST Hospital Encounter [facility] Main OR [address] [place] [phone] Angie Carney MD [address] [phone] Ganglion cyst of finger Discharge Disposition: Home or Self Care Social History Tobacco Use Types Packs/Day Years Used Date Smoking Tobacco: Never Smokeless Tobacco: Never Alcohol Use Standard Drinks/Week Comments Yes 2 (1 standard drink = 0.6 oz pur e alcohol) Sex and Gender Information Value Date Recorded Sex Assigned at Female 04/12/2024 8:38 AM EST Gender Identity Female 04/12/2024 8:38 AM EST Sexual Orientation Straight 04/12/2024 8: 38 AM EST Job Start Date Occupation Industry Not on file Not on file Not on file documented as of this encounter Last Filed Vital Signs Vital Sign Reading Time Taken Comments Blood Pressure 115/80 04/12/2024 10:23 AM EST Pulse 77 04/12/2024 10:23 AM EST Temperature 36.6 ??C (97.8 ??F) 04/12/2024 10:[address] Respiratory Rate 20 04/12/2024 10:23 AM EST Oxygen Saturation 96% 04/12/2024 10:23 AM EST Inhaled Oxygen Concentration - - Weight - - Height - - Body Mass Index - - documented in this encounter Discharge Instructions * Discharge Instructions* Angie Carney MD - 04/12/2024 10:29 AM EST Keep the hand elevated to minimize pain and swelling; this is most important in the first 2 to 3 days following surgery It is okay to move the fingers and to use the hand lightly for self-care Cover the dressings with plastic bag when you wish to shower After 3 days you may remove the dressing and cover the stitches with gauze and/or a suitable Band-Aid; continue to keep the site dry Some bruising and swelling may occur Take your medications as usual Take ibuprofen or Tylenol as needed for mild pain Take the oxycodone sparingly if needed for pain; be advised that it can make you constipated so plan accordingly As you know, since you are on Suboxone the oxycodone may only be minimally effective. Driving is not recommended until your hand is pain-free and reliable Call if you have any questions or concerns such as fever, gross swelling, discoloration, wound concerns Your postop visit should be in approximately 10 days; please consult your preoperative paperwork for the date and time The office number is [phone] documented in this encounter Medications at Time of Discharge Medication Sig Dispensed Refills Start Date End Date acamprosate (CAMPRAL) 333 mg EC tablet Take 1 tablet (333 mg total) by mouth 3 (three) times a day. 03/19/2024 albuterol HFA (PROAIR HFA ; PROVENTIL HFA ; VENTOLIN HFA) 90 mcg/actuation inhaler Inhale 2 puffs by mouth every 4 (four) hours if needed. buprenorphine-naloxone (SUBOXONE) 8-2 mg per SL tablet Place 1 tablet under the tongue 2 (two) times a day. Max Daily Amount: 2 tablets 03/19/2024 cloNIDine (CATAPRES) 0.1 mg tablet Take 1 tablet (0.1 mg total) by mouth 2 (two) times a day if needed for high blood pressure. 07/24/2023 cyanocobalamin, vitamin B-12, 1,000 mcg tablet, sublingual Take 1,000 mcg by mouth 1 (one) time each day. hydrOXYzine HCL (ATARAX) 25 mg tablet Take 1 tablet (25 mg total) by mouth every 8 (eight) hours if needed for itching. 03/19/2024 irbesartan-hydroCHLOROt hiazide (AVALIDE) 300-12.5 mg per tablet Take 1 tablet by mouth 1 (one) time each day. 12/27/2022 lidocaine 4 % patch Apply 1 patch topically 1 (one) time each day. naloxone (NARCAN) 4 mg/0.1 mL nasal spray Administer 1 each (4 mg total) into affected nostril(s) if needed for opioid reversal. 07/24/2023 oxyCODONE (ROXICODONE) 5 mg immediate release tablet Take 1 tablet (5 mg total) by mouth every 6 (six) hours if needed for severe pain for up to 3 doses. Max Daily Amount: 20 mg 3 tablet 04/12/2024 sertraline (ZOLOFT) 50 mg tablet Take 1 tablet (50 mg total) by mouth 1 (one) time each day. 11/10/2022 documented as of this encounter Ordered Prescriptions Prescription Sig Dispensed Refills Start Date End Da te oxyCODONE (ROXICODONE) 5 mg immediate release tablet Take 1 tablet (5 mg total) by mouth every 6 (six) hours if needed for severe pain for up to 3 doses. Max Daily Amount: 20 mg 3 tablet 04/12/2024 documented in this encounter Discharge Disposition Disposition Code Departure Means Destination Comment s Home or Self Care documented in this encounter Procedure Notes * Angie Carney MD - 04/12/2024 10:01 AM EST EXCISION RIGHT FINGER GANGLION (R) OPERATIVE NOTE Date: 04/12/2024 Location: [facility] OR Name: Tameka Griggs, : 1960, Diagnosis Pre-op Diagnosis * Ganglion cyst of finger [M67.449] Post-op Diagnosis * Ganglion cyst of finger [M67.449] Procedures EXCISION RIGHT FINGER GANGLION 23747 - SD EXCISION LESION TENDON SHEATH/JOINT CAPSULE HAND/FINGER Indications: Tameka Griggs is an 63 y.o. female who is having surgery for ganglion cyst. It is a bulbous mass over the dorsum of the right ring finger. Surgeon(s) & Water Pumper(s) * Angie Carney MD - Primary Anesthesia: Local anesthesia only ASA: ASA status not filed in the log. Estimated Blood Loss: Minimal Specimen: Ganglion cyst Specimens ID Source Type Tests Collected By Collected At Frozen? Priority Lab ID 1 Hand, Right Tissue TISSUE EXAM Angie Carney MD 04/12/24 1008 No Description: right ring finger ganglion Procedure Details: The patient was identified in the minor surgical area. We reviewed the plan of the procedure. I went through her problem list and medication list and we updated that in the computer. She was brought into the minor surgical suite placed supine in beachchair position on the table. The hand was marked. Scrubbed and prepped from fingertips up to mid forearm. Lidocaine 1% with epinephrine buffered sodium bicarb was injected at the volar base of the finger at the level of the metacarpal neck of the ring finger. 4 cc were injected. I also injected 1 cc dorsally over the proximal phalanx of the ring finger. We then prepped the hand again in half sheet and towels were placed down to create field stability. By then there was good anesthetic effect. Timeout was done. A curved incision was marked over the PIP joint. Incision was made. Blunt dissection was done and bipolar cauterywas utilized were necessary. The patient had a large bulbous ganglion cyst emanating from the PIP joint. I peeled it off the extensor mechanism. There is mucinous degeneration of the extensor but it was intact. Arthrotomy was performed along the radial side and I lifted up on the extensor tendon overlying the head of the proximal phalanx. A rongeur was used to carefully remove some of the synovium that was there. We then washed the joint out copiously. The patient was able to actively flex and extend the finger. The tourniquet was removed. The wound was closed interrupted 4-0 Prolene sutures.Xeroform and light soft sterile dressing was applied and the light wrap. The patient tolerated the procedure well. Postoperative instructions reviewed and written instructions given. Prescription for3 tablets of pain medication was sent to her pharmacy. Patient is on Suboxone chronically and she is aware that the pain medicine may not make much of an difference. She was advised to use Tylenol and ibuprofen and to elevate the extremity. She verbalized understanding. She was discharged from minor surgical suite uneventfully. Complications: None; patient tolerated the procedure well. Disposition: Patient discharged under her own power uneventfully. Condition: stable documented in this encounter Plan of Treatment Not on file documented as of this encounter Procedures Procedure Name Priority Date/Time Associated Diagnosis Comments TISSUE EXAM Routine 04/12/2024 10:08 AM EST Ganglion cyst of finger SD EXCISION LESION TENDON SHEATH/JOINT CAPSULE HAND/FINGER 04/12/2024 9:38 AM EST Ganglion cyst of finger Special Needs To be done in minor surgery under local anesthesia. documented in this encounter Results * Tissue exam (04/12/2024 10:08 AM EST) Final Diagnosis Soft tissue, right ring finger, excision: Ganglion cyst 04/15/2024 12:14 PM [facility] Gross Description A. Hand, Right, ring finger ganglion: Labeled right rin hand R . Received in formalin are two irregular pink-white fibromembranous tissue fragments, measuring 0.5 x 0.3 x 0.3 cm and 1.1 x 0.8 x 0.4 cm. The tissues are disrupted but consistent with a previously disrupted cyst. The specimen is submitted in toto in one cassette, two pieces. FELICIA 04/15/2024 12:14 PM [facility] Disclaimer Unless otherwise specified, all tissue is 10% NB formalin fixed and paraffin embedded. 04/15/2024 12:14 PM [facility] Tissue Structure of right hand / Unknown 04/12/2024 10:08 AM EST 04/12/2024 10:55 AM EST Angie Carney MD LAB PATHOLOGY [facility] ([facility]) [facility] [address] [place] [address], documented in this encounter Visit Diagnoses Diagnosis Ganglion cyst of finger- Primary Primary hypertension Unspecified essential hypertension Opioid-related disorder (CMS/HCC) Unspecified drug-induced mental disorder Moderate persistent asthma without complication documented in this encounter Admitting Diagnoses Diagnosis Ganglion cyst of finger documented in this encounter Historical Medications * This list may reflect changes made after this encounter. Medication Sig Dispensed Refills Start Date End Date sertraline (ZOLOFT) 50 mg tablet Take 1 tablet (50 mg total) by mouth 1 (one) time each day. 11/10/2022 lidocaine 4 % patch Apply 1 patch topically 1 (one) time each day. naloxone (NARCAN) 4 mg/0.1 mL nasal spray Administer 1 each (4 mg total) into affected nostril(s) if needed for opioid reversal. 07/24/2023 hydrOXYzine HCL (ATARAX) 25 mg tablet Take 1 tablet (25 mg total) by mouth every 8 (eight) hours if needed for itching. 03/19/2024 cloNIDine (CATAPRES) 0.1 mg tablet Take 1 tablet (0.1 mg total) by mouth 2 (two) times a day if needed for high blood pressure. 07/24/2023 buprenorphine-naloxone (SUBOXONE) 8-2 mg per SL tablet Place 1 tablet under the tongue 2 (two) times a day. Max Daily Amount: 2 tablets 03/19/2024 albuterol HFA (PROAIR HFA ; PROVENTIL HFA ; VENTOLIN HFA) 90 mcg/actuation inhaler Inhale 2 puffs by mouth every 4 (four) hours if needed. cyanocobalamin, vitamin B-12, 1,000 mcg tablet, sublingual Take 1,000 mcg by mouth 1 (one) time each day. irbesartan-hydroCHLOROth iazide (AVALIDE) 300-12.5 mg per tablet Take 1 tablet by mouth 1 (one) time each day. 12/27/2022 acamprosate (CAMPRAL) 333 mg EC tablet Take 1 tablet (333 mg total) by mouth 3 (three) times a day. 03/19/2024 added in this encounter Active and Recently Administered Medications Times are shown in EST. PRN Medication Order 04/10/2024 04/11/2024 04/12/2024 lidocaine-EPINEPHrine (PF) (XYLOCAINE W/EPI) 1 %-1:200,000 injection (CANCELED) As needed, Starting on Mon04/12/24 at 1002, Intraprocedure 1002 (Given - Provid er: Angie Carney MD) sodium bicarbonate injection (CANCELED) As needed, Starting on Mon04/12/24 at 1002, Intraprocedure 1002 (Given - Provid er: Angie Carney MD) documented in this encounter Orders Medications Ordered That Anmol ht Not Have Been Administered Count Last Ordered Date First Ordered Date lidocaine-EPINEPHrine (PF) ( XYLOCAINE W/EPI) 1 %-1:200,000 injection 1 04/12/2024 sodium bicarbonate injection 1 04/12/2024 Discharge Count Last Ordered Date First Orde red Date DISCHARGE PATIENT 1 04/12/2024 documented in this encounter Care Teams Residential Insurance Inspector Relationship Specialty Start Date End Date Pedro Pablo Baker MD [address] [place] [address] PCP - General 03/20/11 documented as of this encounter
--- OUTSIDE RECORDS SUMMARY | 2024-04-18 19:10 | XMS_ITS ---
Author Organization Pedro Pablo Baker MD Address [address] [place], [place] [id number] Care Team Providers Care Manager Front Office Name Role Phone Pedro Pablo Baker Primary Care Provider Allergies No Known Allergies Results Component Value Reference Range Notes UA ClnCatch+Micro w/rflx Cul t Reviewed date:04/18/2024 04:37:16 PM Interpretation: Performing Lab:[facility], [address] [place] [phone] Notes/Report: Urine, Clean Catch Color Urine Yellow Appearance Urine Clear PH 5.5 5.0-9.0 Glucose Urine UA Negative Negative mg/dL Urine Blood Negative Negative Specific Hagerman - Urine 1.010 1.005-1.025 Urine Protein Negative [...] 4 HOURS NEEDED for 33 Active Nystatin 808220 UNIT/GM 1 application Ex ternally Twice a [...] Date Provider Diagnosis Pedro Pablo Baker MD [address] [place] [address] Drive [address] [place], [place] [id number] 04/18/2024 Pedro Pablo Baker Skin yeast infection [...] EVERY 4 HOURS NEEDED for 33 Nystatin 301153 UNIT/GM 1 application Ex ternally Twice a [...] Up: 3 Months, Reason: Provider Name:Pedro Pablo caldwellr, 07/18/2024 01:30:00 PM, [address] [place] [address], [address], [place], [place], [phone], Provider Name:Pedro Pablo Wilder ier, 04/15/2025 07:45:00 AM, [address] [place] [address], [address], [place], [place], [phone], Provider Name:Pedro Pablo caldwellr, 04/21/2025 01:00:00 PM, [address] [place] [address], [place] [address], [place], [place], [phone], Progress Notes * Tameka LIMA SDOB:1960 (63 yo F)Acc No.[id number]:04/18/2024 Progress Notes Patient:?Tameka LIMA S Provider:?Pedro Pablo Baker MD :1960???Age:63 Y???Sex:Female D ate:04/18/2024 Address:[address] [place] [address], [id number] Subjective: * Chief Complaints: * ???1. Annual visit. * HPI: ???Depression Screening:?PHQ-9?Little interest or pleasure in doing things?Several days,?Feeling down, depressed, or hopeless?Several days,?Trouble falling or staying asleep, or sleeping too much?Several days,?Feeling tired or having little energy?Several days,?Poor appetite or overeating?Not at all,?Feeling bad about yourself or that you are a failure, or have let yourself or your family down?Not at all,?Trouble concentrating on things, such as reading the newspaper or watching television?Several days,?Moving or speaking so slowly that other people could have noticed; or the opposite, being so fidgety or restless that you have been moving around a lot more than usual?Not at all,?Thoughts that you would be better off or of hurting yourself in some way?Not at all,?Total Score?5,?Interpretation?Mild Depression.?Interpretation and Intervention?Depression Screening Findings?Positve - Review of PHQ-9 found positive for depression,?Follow-Up for Depression?: Existing condition.?Communication Needs:?Communication Needs?Does the patient have a hearing impairment?No,?Does the patient have a vision impairment??No,?Does the patient have a cognition impairment??No.?SDOH Questions:?SDOH Questions?In the past year have you been worried about losing housing??No,?In the past year have you or any family members you live with been unable to get any of the following when it was really needed? Check all that apply:?None.?Symptom(s):? patient is a 63 yo female here for yearly evaluation with review of recent labs and follow up of chronci issues. feeling depressed. * ROS:?General/Constitutional:?Patient denies?fatigue, headache.?Change in appetite?denies.?Chills?denies.?Fever?denies.?Ophthalmologic:?Blurred vision?denies.?Discharge?denies.?Pain?denies.?ENT:?Patient denies?decreased sense of smell, any loss of taste, sore throat.?Decreased hearing?denies.?Sore throat?denies.?Swollen glands?denies.?Endocrine:?Cold intolerance?denies.?Excessive thirst?denies.?Heat intolerance?denies.?Weight loss?denies.?Respiratory:?Cough?denies.?Shortness of breath at rest?denies.?Shortness of breath with exertion?denies.?Wheezing?denies.?Cardiovascular:?Chest pain at rest?denies.?Chest pain with exertion?denies.?Irregular heartbeat?denies.?Shortness of breath?denies.?Gastrointestinal:?Abdominal pain?denies.?Change in bowel habits?denies.?Diarrhea?denies.?Nausea?denies.?Rectal bleeding?denies.?Vomiting?denies .?Genitourinary:?Blood in urine?denies.?Difficulty urinating?denies.?Frequent urination?denies.?Urinary incontinence?Denies.?Musculoskeletal:?Patient denies?muscle aches.?Painful joints?denies.?Weakness?denies.?Peripheral Vascular:?Patient denies?red and blue toes.?Skin:?Dry skin?denies.?Itching?denies.?Denies?Mole(s),? changes in moles, new moles or any lesions of concern.?Denies?Photosensitivity.?Rash?denies.?Neurologic:?Dizziness?denies.?Fainting?denies.?Headache?denies.? * Medical History:?colonoscopy 10/2005 negative; colonoscopy 09/07/15 w/Dr. Gann: Colonoscopy 2020 due 5yrs (2025), Mammo was 01/29, [facility], Dr. Amalia Lopes, 01/30. * Family History:?Father: dece ased 71 yrs.?Mother: alive 91 yrs.?2 brother(s) , 1 sister(s) . 1 son(s) , 2 daughter(s) . .? Father Sepsis Mother-Healthy no family history of mental illness or drug abuse, Denies mental health/substance abuse family history. * Social History:?Tobacco Use:?Tobacco Use/Smoking?Patient is a?nonsmoker,?Additional Findings: Tobacco Non-User?Current non-smoker, currently using no form of tobacco.?Drugs/Alcohol:?Alcohol Screen?Did you have a drink containing alcohol in the past year??Yes,?How often did you have a drink containing alcohol in the past year??2 to 4 times a month (2 points),?How many drinks did you have on a typical day when you were drinking in the past year??1 or 2 drinks (0 point),?How often did you have 6 or more drinks on one occasion in the past year??Never (0 point),?Points?2,?Interpretation?Negative.?Miscellaneous:?Caffeine: yes, frequency:, 1-2 cups per day. Children: yes. Community involvements: no. Exercise: yes, 1-2 times per week walks everyday. Housing: owning. Living with: spouse. Marital status: . Occupation: works part-time. Pets: dogs. Travel outside of the [place]: no. * Medications:?Taking Super B- 50 B Complex [...] CAPSULE BY MOUTH EVERY DAY , Taking Diflucan 100 MG Tablet 1 tablet Orally once a day , Taking Irbesartan-hydroCHLOROthiazide 300-12.5 MG Tablet TAKE ONE TABLET BY MOUTH EVERY DAY , Taking LORazepam 0.5 MG Tablet TAKE ONE TABLET BY MOUTH AT BEDTIME NEEDED SPARINGLY , Not-Taking/PRN Nystatin 950096 UNIT/GM Cream 1 application Externally Twice a day , Not-Taking/PRN Lidocaine 5 % Patch APPLY 1 PATCH EXTERNALLY, REMOVE AFTER 12 HOURS, USE ONCE DAILY FOR 14 DAYS , Not-Taking/PRN HYDROcodone- Acetaminophen 5-325 MG Tablet 1 tablet as needed [...] to affected area Externally Once a day , Medication List reviewed and reconciled with the patient * Allergies:?N.K.D.A. Objective: * Vitals:?Ht: 64, Wt: 172, BMI :29.52, BP:132/80, Wt-k.02. * ???Past Orders: ???Lab:Comprehensive [place]. P angelica Fast (Order Date - 02/12/2024) (Collection Date & Time - 02/13/2024 01:43 PM) ? Value Reference Range ?Sodium 135 135-145 - mmo l/L ?Bilirubin Total 1.2 H 0.0- 1.0 - mg/dL ?Aspartate Amino Transferase 59 H 5-31 - U/L ?Alanine Aminotransferase 51 H 0-31 - U/L ?Total Protein 7.0 6.5-8. 0 - g/dL ?Albumin Level 4.4 3.5-5. 0 - g/dL ?Alkaline Phosphatase 58 39-117 - U/L ?Potassium 3.8 3.3-5.1 - mmol/L ?Chloride 97 96-108 - mm ol/L ?Carbon Dioxide 30 H 22-29 - mmol/L ?Anion Gap 12 12-20 - ?Blood Urea Nitrogen 15 9-16 - mg/dL ?Creatinine 0.78 0.5-1.4 - mg/dL ?Estimated Glomerular Filt Rate > 60 - ?Glucose Fasting 129 H 60-9 9 - mg/dL ?Calcium 9.6 8.4-10.2 - m g/dL ???Lab:Liver Panel (Order Da 02/12/2024) (Collection Date & Time - 02/13/2024 01:43 PM) ? Value Reference Range ?Bilirubin Direct 0.4 0.0 -0.5 - mg/dL ???Lab:Lipid Panel (Order 02/12/2024) (Collection Date & Time - 02/13/2024 01:43 PM) ? Value Reference Range ?Triglycerides 168 H <150 - mg/dL ?Cholesterol 226 H <200 - m g/dL ?LDL Cholesterol Calculated 144 H <100 - mg/dL ?HDL Cholesterol 49 >40 - mg/dL ???Lab:Vitamin B12 (Order 02/12/2024) (Collection Date & Time - 02/13/2024 01:43 PM) ? Value Reference Range ?Vitamin B12 1502 H 200-900 - pg/mL ???Lab:UA ClnCatch+Micro w/r flx Cult (Order 02/12/2024) (Collection Date & Time - 02/13/2024 01:36 PM) ? Value Reference Range ?Color Urine Yellow - ?Appearance Urine Clear - ?PH 7.0 5.0-9.0 - ?Glucose Urine UA Negative Neg ative - mg/dL ?Urine Blood Negative Negative - ?Specific Hagerman - Urine 1.015 1.005-1.025 - ?Urine Protein Negative Neg-Tr farzana - mg/dL ?Urine Ketones Negative Negati ve - mg/dL ?Nitrite Urine Negative Negati ve - ?Leukocyte Esterase Urine Large (3+) A Negative - ?RBC Urine 0-2 0-2 - /HPF ?WBC Urine >50 A 0-5 - /HPF ?Squamous Epithelial Cell Urine 0-2 0-2 - /HPF ?Bacteria Urine None Seen None Seen - ?Hyaline Casts Urine 0-2 0-2 - /LPF ???Lab:Complete Blood Count Auto Diff (Order Date - 02/12/2024) (Collection Date & Time - 02/13/2024 01:43 PM) ? Value Reference Range ?White Blood Count 7.9 4. 8-10.8 - X10*3/uL ?Red Blood Count 3.94 L 4.20 -5.50 - X10*6/uL ?Hemoglobin 12.7 12.0-16.0 - g/dl ?Hematocrit 37.3 37.0-47.0 - % ?Mean Corpuscular Volume 94.7 80.0-98.0 - fL ?Mean Corpuscular Hemoglobin 32.2 27.0-33.0 - pg ?Mean Corpuscular HGB Conc 34.0 31.0-35.0 - g/dl ?Red Cell Distributio n Width 12.8 11.0-16.0 - % ?Platelet Count 209 160-4 00 - X10*3/uL ?Mean Platelet Volume 10.2 9.4-12.3 - fL ?Neutrophils Percent Auto 70.9 45-73 - % ?Imm Gran Pct Auto 0.5 H 0. 0-0.4 - % ?Lymphocytes Percent Auto 18.8 L 20-40 - % ?Monocytes Percent Auto 6.6 2-11 - % ?Eosinophils Percent Auto 2.7 0-4 - % ?Basophils Percent Auto 0.5 0-2 - % ?NRBC Pct Auto 0.0 0.0-0. 2 - /100WBC ?Neutrophils Absolute Auto 5.6 2.0-8.3 - x10*3/uL ?Imm Gran Abs Auto 0.04 H 0. 00-0.03 - X10*3/uL ?Lymphocytes Absolute Auto 1.5 1.2-4.9 - X10*3/uL ?Monocytes Absolute Auto 0.5 0.1-1.2 - X10*3/uL ?Eosinophils Absolute Auto 0.2 0.0-0.4 - X10*3/uL ?Basophils Absolute Auto 0.0 0.0-0.2 - X10*3/uL ?NRBC Abs Auto 0.000 0.0-0. 012 - X10*3/uL ???Lab:Urine Culture (Order Date - 02/13/2024) (Collection Date & Time - 02/13/2024) ? Value Reference Range ?Urine Culture urogenital contamination. - * Examination: ???General Examination: ?GENERAL APPEARANCE:?well developed, well nourished, in no acute distress.?HEAD:?normocephalic, atraumatic.?EYES:?pupils equal, round, reactive to light and accommodation, sclera non-icteric.?EARS:?normal.?ORAL CAVITY:?mucosa moist.?THROAT:?clear.?NECK/THYROID:?neck supple, full range of motion, no cervical lymphadenopathy, no bruits.?SKIN:?warm and dry, no suspicious lesions, abnormal rt foream with? a scaly 1/4 inch lesion that she says came after her surgery last week and she thinks it was where the iv was.?HEART:?regular rate and rhythm, S1, S2 normal, no murmurs.?LUNGS:?clear to auscultation bilaterally.?BREASTS:?No mass, no lump.?ABDOMEN:?soft, nontender, nondistended, bowel sounds present, normal, liver about 2 inches below ribs?, no masses palpable.?RECTAL EXAM:?done by bench assembler electrical.?FEMALE GENITOURINARY:?done by bench assembler electrical.?EXTREMITIES:?no clubbing, cyanosis, or edema.?NEUROLOGIC:?nonfocal, motor strength normal upper and lower extremities, sensory exam intact.? Assessment: * Assessment: 1.?Annual physical exam - Z0 0.00 (Primary)???2.?Skin yeast infection - B37.2???3.?Dysthymia - F34.1???4.?Anxiety - F41.9???5.?Skin lesion - L98.9???6.?Frequent urination - R35.0???7.?Erosive esophagitis - K22.10???8.?Essential hypertension - I10???9.?Depression screening - Z13.31??? Plan: * Treatment: 2.?Skin yeast infection? Refill Nystatin Cream, 030886 UNIT/GM, 1 application, Externally, Twice a day, 10 days, 60, Refills 3.?? 3.?Dysthymia? Start Sertraline HCl Tablet, 100 MG, 1 tablet, Orally, Once a day, 90 days, 90 Tablet, Refills 3.?? Notes: will increase sertraline?? 4.?Skin lesion? Notes: will check it at next visit?? 5.?Frequent urination?LAB: UA ClLucianoatch+Micro w/rflx Cult (Collection Date & Time - 04/18/2024 01:30 PM) 6.?Erosive esophagitis? Notes: stable, will continue current regiment?? 7.?Essential hypertension? Notes: stable, will contionue current regiment?? 8.?Depression screening? Notes: negative screen?? 9.?Others? Refill Albuterol Sulfate HFA Aerosol Solution, 108 (90 Base) MCG/ACT, INHALE 1 PUFF BY MOUTH EVERY 4 HOURS NEEDED, 33, 8.5 Gram, Refills 6.?? * Follow Up:?3 Months * * The named appointment provid er may or may not be the originator of this progress note, and it is not deemed complete until electronically signed by the appointment provider. Sign off status: Pending * Provider:?Pedro Pablo Baker MD Date:?0 04/18/2024 Generated for Wallace crowley/Jackson/eTransmitting on:?04/18/2024 07:10 PM EST History and Physical Notes * [...] mass, no lump RECTAL EXAM: done by bench assembler electrical FEMALE GENITOURINARY: done by bench assembler electrical ORAL CAVITY: mucosa moist
--- OUTSIDE RECORDS SUMMARY | 2024-04-18 19:10 | XMS_ITS | Encounter Summary ---
Author Organization [facility] Address [address] [place] [address] Care Team Providers Care Oil Refinery Process Technician Name Role Phone Pedro Pablo Baker MD Primary Care Provider Unav ailable Reason for Visit * Auth/Cert (Routine) Specialty Diagnoses / Procedures Referred By Tavares howard Referred To Contact Diagnoses Ganglion cyst of finger ganglion cyst Procedures [place] EXCISION LESION TENDON SHEATH/JOINT CAPSULE HAND/FINGER EXCISION RIGHT FINGER GANGLION Angie Carney MD [address] [place] [phone] [facility] Or [address] [place] [phone] Referral ID Status Reason Start Date Expiration Date Visits Re quested Visits Authorized [id number] 1 1 Encounter Details Date Type Department Care Team (Late st Contact Info) Description 04/12/2024 9:30 AM EST - 04/12/2024 10:30 AM EST Surgery [facility] Main OR [address] [place] [phone] Angie Carney MD [address] [phone] EXCISION RIGHT FINGER GANGLION [79548 (CPT??)] Surgery Details Date/Time Status Location OR Service Patient Class Case Cl ass Case Type Trauma Case? 04/12/2024 9:30 AM Posted [facility] OR OR [facility] Orthopedics [facility] Outpatient Surgery F - Elective Panel 1 Procedure LRB Anes Op Region Wound Class Comments EXCISION RIGHT FINGER GANGLION Right Local Ring Finger Class I/ Clean Right ring finger To be done in minor surgery Surgeon Surgeon Role Service Panel Angie Carney MD Primary Orthopedics 1 Special Needs To be done in minor surgery under local anesthesia. documented in this encounter Social History Tobacco Use Types Packs/Day Years [...] date and time The office number is [phone] documented in this encounter Medications at Time [...] GANGLION (R) OPERATIVE NOTE Date: 04/12/2024 Location: [facility] OR Name: Tameka Griggs, : 1960, Diagnosis Pre-op Diagnosis * Ganglion cyst of finger [M67.449] Post-op Diagnosis * Ganglion cyst of finger [M67.449] Procedures EXCISION RIGHT FINGER GANGLION [address] - [place] EXCISION LESION TENDON SHEATH/JOINT CAPSULE HAND/FINGER Indications: Tameka Griggs is an 63 y.o. female who is having surgery for ganglion cyst. It is a bulbous mass over the dorsum of the right ring finger. Surgeon(s) & Nuclear Power Plant Engineer(s) * Angie Carney MD - Primary Anesthesia: [...] 10:08 AM EST Ganglion cyst of finger FL EXCISION LESION TENDON SHEATH/JOINT CAPSULE HAND/FINGER 04/12/2024 9:38 AM EST Ganglion cyst of finger Special Needs To be done in minor surgery under local anesthesia. documented in this encounter Results * Tissue exam (04/12/2024 10:08 AM EST) Final Diagnosis Soft tissue, right ring finger, excision: Ganglion cyst 04/15/2024 12:14 PM EST [facility] ([facility]) [facility] Gross Description A. Hand, Right, ring [...] cassette, two pieces. FELICIA 04/15/2024 12:14 PM EST [facility] Disclaimer Unless otherwise specified, all tissue is 10% NB formalin fixed and paraffin embedded. 04/15/2024 12:14 PM EST [facility] Tissue Structure of right hand / Unknown 04/12/2024 10:08 AM EST 04/12/2024 10:55 AM EST Angie Carney MD LAB PATHOLOGY [facility] [address] [place] [address], documented in this encounter Visit Diagnoses Diagnosis Ganglion cyst of finger- Primary Primary hypertension Unspecified essential hypertension Opioid-related disorder (CMS/HCC) Unspecified drug-induced mental disorder Moderate persistent asthma without complication Ganglion cyst of finger documented in this encounter Admitting Diagnoses Diagnosis Ganglion cyst of finger documented in this encounter Administered Medications Inactive Administered Medications - up to 3 most recent administrations Medication Order MAR Action Action Date Dose Rate Site lidocaine-EPINEPHrine (PF) (XYLOCAINE W/EPI) 1 %-1:200,000 injection As needed, Starting on Mon04/12/24 at 1002, Intraprocedure Given 04/12/2024 10:02 AM EST 7 mL sodium bicarbonate injection As needed, Starting on Mon04/12/24 at 1002, Intraprocedure Given 04/12/2024 10:02 AM EST 0.4 mEq documented in this encounter Historical Medications * [...] Carney MD) documented in this encounter Orders Discharge Count Last Ordered Date First Orde red Date DISCHARGE PATIENT 1 04/12/2024 documented in this encounter Care Teams Oil Refinery Process Technician Relationship Specialty Start Date End Date Pedro Pablo Baker MD [address] [place] [phone] PCP - General 03/20/11 documented as of this encounter
--- OUTSIDE RECORDS SUMMARY | 2024-04-18 19:11 | XMS_ITS ---
Author Organization Pedro Pablo Baker MD Address [address] [place], [place] [id number] Care Team Providers Care Legal Records Clerk Name Role Phone Pedro Pablo Baker Primary Care Provider [phone] Allergies No Known Allergies REASON FOR VISIT 2 WEEK F/U, check rash inner upper thighs 2 weeks Medications Medication SIG (Take, Route, Frequency, Duration) Notes Start Date End Date Status predniSONE 10 MG 1 tablet with food o r milk Orally 4 tabs for 3 days,3tabs for 3 days, 2 tabs for 3 days, and 1 tab for 3 days for 14 days 09/14/2020 Not-Taking Amoxicillin-Pot Clavulanate 875-125 MG 1 tablet Orally every 12 hrs for 10 day(s) 09/14/2020 Not-Taking HYDROcodone-Acetaminophe n 5-325 MG 1 tablet as needed Orally every 6 hrs as needed for 7 days 11/12/2020 Not-Taking Diprolene AF 0.05 % 1 application to affected area Externally Once a day for 30 days 05/21/2013 Not-Takin g Valtrex 500 MG 1 tablet Orally ever y 12 hrs for 3 days 05/19/2015 Not-Taking Omeprazole 20 MG TAKE ONE CAPSULE BY MOUTH EVERY DAY for 90 Active Lidocaine 5 % APPLY 1 PATCH EXTERNALLY, REMOVE AFTER 12 HOURS, USE ONCE DAILY FOR 14 DAYS for 15 Not-Taking LORazepam 0.5 MG TAKE ONE TABLET BY M OUTH AT BEDTIME NEEDED SPARINGLY for 30 06/01/2023 Active Sertraline HCl 50 MG TAKE ONE TABLET BY MOUTH EVERY DAY for 90 Active Super B-50 B Complex - as directed Orally Active Albuterol Sulfate HFA 108 (90 Base) MCG/ACT INHALE 1 PUFF BY MOUTH EVERY 4 HOURS NEEDED for 33 Active Diflucan 100 MG 1 tablet Orally once a day for 10 day(s) 09/01/2023 Active Irbesartan-hydroCHLOROth iazide 300-12.5 MG TAKE ONE TABLET BY MOUTH EVERY DAY Active Vitamin D (Cholecalciferol) 1000 UNIT 2 tablets Orally Once a day for 30 day(s) 05/16/2016 Active Nystatin 226383 UNIT/GM 1 application Ex ternally Twice a day for 10 days 09/01/2023 Active Vital Signs Blood pressure systolic 120 mm Hg 09/01/19 24 Blood pressure diastolic 70 mm Hg 024 Height 64 in 09/01/2023 Weight 170 lbs 09/01/2023 BMI 29.18 kg/m2 09/01/2023 weight is up 8 pounds since 08-17-23 Encounters Encounter Location Date Provider Diagnosis Pedro Pablo Baker MD [address] [place] [address] Drive [address] [place] [phone] 09/01/2023 Pedro Pablo Baker Thrush, oral B37.0 and Skin yeast infection B37.2 Assessments Encounter Date Diagnosis (ICD Code) Assessment Notes Treatment Notes Treatment Clinical Notes Section Notes 09/01/2023 Thrush, oral (ICD-10 - B37.0) 09/01/2023 Skin yeast infection (ICD-10 - B37.2) patient verbalized understanding of medication and directions for use Plan Of Treatment Medication Medication Name Sig Start Date Stop Date Notes Diflucan 100 MG 1 tablet Orally once a day for 10 day(s) 09/01/2023 Nystatin 369194 UNIT/GM 1 application Ex ternally Twice a day for 10 days 09/01/2023 Treatment Notes Assessment Notes Skin yeast infection patient verbalized understanding of medication and directions for use Next Appt Details Provider Name:Pedro Pablo newton, 07/18/2024 01:30:00 PM, [address] [place] [address] Drive, [address], [place], [place], [phone], Provider Name:Pedro Pablo Wilder ier, 04/15/2025 07:45:00 AM, [address], [address], [place], [phone], Provider Name:Pedro Pablo Wilder ier, 04/21/2025 01:00:00 PM, [address], [address], [place], [phone], Progress Notes * Ernestina LIMA SDOB:1960 (63 yo F)Acc No.[id number]:09/01/2023 Progress Notes Patient:?Ernestina Lima Provider:?Pedro Pablo Baker MD :1960???Age:63 Y???Sex:Female D ate:09/01/2023 Address:[address] [place] [address], [facility] Subjective: * Chief Complaints: * ???2 WEEK F/UCheck rash inne r upper thighs 2 weeks * HPI: ???Symptom(s):? patient is a 63 yo female here for 2 week follow up visit, breathing is better but not toally fine. off prednison for one week. * ROS:?General/Constitutional:?Denies?Chills.?Denies?Fatigue.?Denies?Fever.?Denies?Headache.?ENT:?Patient denies?decreased sense of smell , any loss of taste , sore throat.?Admits?Sore throat,?from Coughing.?Respiratory:?Admits?Cough.?Denies?Shortness of breath at rest.?Denies?Shortness of breath with exertion.?Gastrointestinal:?Denies?Diarrhea.?Denies?Nausea.?Musculoskeletal:?Patient denies?muscle aches.?Peripheral Vascular:?Patient denies?red and blue toes.? * Medical History:? * Surgical History:? * Hospitalization/Major Diagno stic Procedure:? * Medications:?TakingSuper B-5 0 B Complex - Capsule as directed Orally Vitamin D (Cholecalciferol) 1000 UNIT Tablet 2 tablets Orally Once a dayIrbesartan-hydroCHLOROthiazide 300-12.5 MG Tablet TAKE ONE TABLET BY MOUTH EVERY DAY Albuterol Sulfate HFA 108 (90 Base) MCG/ACT Aerosol Solution INHALE 1 PUFF BY MOUTH EVERY 4 HOURS NEEDED LORazepam 0.5 MG Tablet TAKE ONE TABLET BY MOUTH AT BEDTIME NEEDED SPARINGLY Sertraline HCl 50 MG Tablet TAKE ONE TABLET BY MOUTH EVERY DAY Omeprazole 20 MG Capsule Delayed Release TAKE ONE CAPSULE BY MOUTH EVERY DAY Taking Super B-50 B Complex - Capsule as directed Orally Taking Vitamin D (Cholecalciferol) 1000 UNIT Tablet 2 tablets Orally Once a dayTaking Irbesartan-hydroCHLOROthiazide 300-12.5 MG Tablet TAKE ONE TABLET BY MOUTH EVERY DAY Taking Albuterol Sulfate HFA 108 (90 Base) MCG/ACT Aerosol Solution INHALE 1 PUFF BY MOUTH EVERY 4 HOURS NEEDED Taking LORazepam 0.5 MG Tablet TAKE ONE TABLET BY MOUTH AT BEDTIME NEEDED SPARINGLY Taking Sertraline HCl 50 MG Tablet TAKE ONE TABLET BY MOUTH EVERY DAY Taking Omeprazole 20 MG Capsule Delayed Release TAKE ONE CAPSULE BY MOUTH EVERY DAY Not-Taking/PRNLidocaine 5 % Patch APPLY 1 PATCH EXTERNALLY, REMOVE AFTER 12 HOURS, USE ONCE DAILY FOR 14 DAYS HYDROcodone-Acetaminophen 5-325 MG Tablet 1 tablet as needed Orally every 6 hrs as neededAmoxicillin-Pot Clavulanate 875- 125 MG Tablet 1 tablet Orally every 12 hrspredniSONE 10 MG Tablet 1 tablet with food or milk Orally 4 tabs for 3 days,3tabs for 3 days, 2 tabs for 3 days, and 1 tab for 3 daysValtrex 500 MG Tablet 1 tablet Orally every 12 hrsDiprolene AF 0.05 % Cream 1 application to affected area Externally Once a dayNot-Taking/PRN Lidocaine 5 % Patch APPLY 1 PATCH EXTERNALLY, REMOVE AFTER 12 HOURS, USE ONCE DAILY FOR 14 DAYS Not-Taking/PRN HYDROcodone-Acetaminophen 5-325 MG Tablet 1 tablet as needed Orally every 6 hrs as neededNot-Taking/PRN Amoxicillin-Pot Clavulanate 875-125 MG Tablet 1 tablet Orally every 12 hrsNot-Taking/PRN predniSONE 10 MG Tablet 1 tablet with food or milk Orally 4 tabs for 3 days,3tabs for 3 days, 2 tabs for 3 days, and 1 tab for 3 daysNot-Taking/PRN Valtrex 500 MG Tablet 1 tablet Orally every 12 hrsNot- Taking/PRN Diprolene AF 0.05 % Cream 1 application to affected area Externally Once a dayDiscontinuedpredniSONE 10 MG Tablet 1 tablet with food or milk Orally 4 tabs for 3 days,3tabs for 3 days, 2 tabs for 3 days, and 1 tab for 3 daysMedication List reviewed and reconciled with the patientDiscontinued predniSONE 10 MG Tablet 1 tablet with food or milk Orally 4 tabs for 3 days,3tabs for 3 days, 2 tabs for 3 days, and 1 tab for 3 daysMedication List reviewed and reconciled with the patient * Allergies:?N.K.D.A.yes[Aller gies Verified] Objective: * Vitals:?Ht: 64, Wt:170, BMI: 29.18, BP:120/70 weight is up 8 pounds since 08-17-23. * Examination: ???General Examination: ?GENERAL APPEARANCE:? alert, well hydrated, in no distress .?THROAT:? no erythema, no exudate, pharynx normal.?SKIN:? abnormal with rash in the gluteal fold.?HEART:? no murmurs, rubs, gallops, regular rate and rhythm.?LUNGS:? no wheezes, rales, rhonchi, good air movement, clear to auscultation bilaterally.? Assessment: * Assessment: 1.?Thrush, oral - B37.0 (Donna ernestina)?2.?Skin yeast infection - B37.2? Plan: * Treatment: * Procedure Codes:? * * Sign off status: Completed true * Provider:?Pedro Pablo Baker MD Date:?0 09/01/2023 Generated for Wallace crowley/Jackson/eTransmitting on:?04/18/2024 07:11 PM EST History and Physical Notes * HPI (History of Present Illness) Category Sub-Category Detail Notes Category Not es Symptom(s) patient is a 63 yo female here for 2 week follow up visit, breathing is better but not toally fine. off prednison for one week Examination Category Sub-Category Detail Notes Category Not es General Examination GENERAL APPEARANCE: alert, w ell hydrated, in no distress THROAT: no erythema, no exud ate, pharynx normal HEART: no murmurs, rubs, ga llops, regular rate and rhythm LUNGS: no wheezes, rales, r honchi, good air movement, clear to auscultation bilaterally SKIN: abnormal with rash i n the gluteal fold
--- OUTSIDE RECORDS SUMMARY | 2024-04-18 19:11 | XMS_ITS | Clinical Summary ---
Author Organization [facility] Address [address] [place] [address] Phone Care Team Providers Care Agriculture Laborer Name Role Phone Pedro Pablo Baker MD Primary Care Provider Unav ailable Allergies No known active allergies Medications Medication Sig Dispensed Refills Start Date End Date Status acamprosate (CAMPRAL) 333 mg EC tablet Take 1 tablet (333 mg total) by mouth 3 (three) times a day. 03/19/2024 Active irbesartan-hydroCHLO ROthiazide (AVALIDE) 300-12.5 mg per tablet Take 1 tablet by mouth 1 (one) time each day. 12/27/2022 Active cyanocobalamin, vitamin B-12, 1,000 mcg tablet, sublingual Take 1,000 mcg by mouth 1 (one) time each day. Active albuterol HFA (PROAIR HFA ; PROVENTIL HFA ; VENTOLIN HFA) 90 mcg/actuation inhaler Inhale 2 puffs by mouth every 4 (four) hours if needed. Active buprenorphine-naloxo ne (SUBOXONE) 8-2 mg per SL tablet Place 1 tablet under the tongue 2 (two) times a day. Max Daily Amount: 2 tablets 03/19/2024 Active cloNIDine (CATAPRES) 0.1 mg tablet Take 1 tablet (0.1 mg total) by mouth 2 (two) times a day if needed for high blood pressure. 07/24/2023 Active hydrOXYzine HCL (ATARAX) 25 mg tablet Take 1 tablet (25 mg total) by mouth every 8 (eight) hours if needed for itching. 03/19/2024 Active naloxone (NARCAN) 4 mg/0.1 mL nasal spray Administer 1 each (4 mg total) into affected nostril(s) if needed for opioid reversal. 07/24/2023 Active lidocaine 4 % patch Apply 1 patch topically 1 (one) time each day. Active sertraline (ZOLOFT) 50 mg tablet Take 1 tablet (50 mg total) by mouth 1 (one) time each day. 11/10/2022 Active oxyCODONE (ROXICODONE) 5 mg immediate release tablet Take 1 tablet (5 mg total) by mouth every 6 (six) hours if needed for severe pain for up to 3 doses. Max Daily Amount: 20 mg 3 tablet 04/12/2024 Active Active Problems Problem Noted Date Diagnosed Date Primary hypertension 04/12/2024 Opioid-related disorder 04/12/2024 Moderate persistent asthma without complication 04/12/2024 Ganglion cyst of finger 02/19/2024 Encounters Date Type Department Care Team Description 04/12/2024 9:30 AM EST - 04/12/2024 10:30 AM EST Surgery [facility] OR [address] [place] [phone] Angie Carney MD EXCISION RIGHT FINGER GANGLION [[id number] (CPT??)] 04/12/2024 8:44 AM EST - 04/12/2024 10:32 AM EST Hospital Encounter [facility] [address] [place] [phone] Angie Carney MD Ganglion cyst of finger Discharge Disposition: Home or Self Care 02/19/2024 Telephone Orthopedic Surgery [facility] [address] [facility] [address] [place] [phone] Angie Carney MD SURGERY from Last 3 Months Surgical History Surgery Date Site/Laterality Comments OTHER SURGICAL HISTORY 2013 N/A PROCEDURE: UT LARYNGOSCOPY DIRECT OPERATIVE W/BIOPSY Medical History Medical History Date Comments Asthma DX:Asthma Social History Tobacco Use Types Packs/Day Years [...] file Not on file Not on file Obstetrics History Last Filed Vital Signs Vital Sign Reading Time Taken Comments Blood Pressure 115/80 04/12/2024 10:23 AM EST Pulse 77 04/12/2024 10:23 AM EST Temperature 36.6 ??C (97.8 ??F) 04/12/2024 10:[address] Respiratory Rate 20 04/12/2024 10:23 AM EST Oxygen Saturation 96% 04/12/2024 10:23 AM EST Inhaled Oxygen Concentration - - Weight 74.4 kg (164 lb) 09/05/2023 1:02 PM EDT Height 162.6 cm (5' 4 ) 09/05/2023 1:02 PM EDT Body Mass Index 28.15 09/05/2023 1:02 PM EDT Plan of Treatment Health Maintenance Due Date Last Done Comments Breast Cancer Screening 1960 Pneumococcal Vaccine: Pediat rics (0 to 5 Years) and At-Risk Patients (6 to 64 Years) (1 of 2 - PCV) 08/05/1967 DTaP,Tdap,and Td Vaccines (1 - Tdap) 1980 Cervical Cancer Screening: P ap Smear 1982 Zoster Vaccines (1 of 2) 08/05/2011 RSV Immunization Patients 60 + Years Old (1 - Risk 60-74 years 1-dose series) 2021 Cholesterol Screening (Lipid Panel) 10/12/2023 Colorectal Cancer Screening: Colonoscopy 10/12/2023 Depression Screening 10/12/2023 HIV Screening 10/12/2023 Hepatitis C Screening 10/12/2023 Social Influencers of Health Screening 10/12/2023 COVID-19 Vaccine ( - 2023-2 5 season) 2023 Influenza Vaccine (#1) 2023 Hypertension/CHF/CAD Annual BMP Blood Test 04/13/2024 HIB Vaccines Aged Out No longer eligi ble based on patient's age to complete this topic HPV Vaccines Aged Out No longer eligi ble based on patient's age to complete this topic Hepatitis A Vaccines Aged Out No long er eligible based on patient's age to complete this topic Hepatitis B Vaccines Aged Out No long er eligible based on patient's age to complete this topic IPV Vaccines Aged Out No longer eligi ble based on patient's age to complete this topic MMR Vaccines Aged Out No longer eligi ble based on patient's age to complete this topic Meningococcal ACWY Vaccine Aged Out N o longer eligible based on patient's age to complete this topic RSV Immunization Patients Un luciana 20 months Aged Out No longer eligible b ased on patient's age to complete this topic Varicella Vaccines Aged Out No longer eligible based on patient's age to complete this topic Procedures Procedure Name Priority Date/Time Associated Diagnosis Comments TISSUE EXAM Routine 04/12/2024 10:08 AM EST Ganglion cyst of finger UT EXCISION LESION TENDON SHEATH/JOINT CAPSULE HAND/FINGER 04/12/2024 9:38 AM EST Ganglion cyst of finger Special Needs To be done in minor surgery under local anesthesia. from Last 3 Months Results * Tissue exam (04/12/2024 10:08 AM EST) Final Diagnosis Soft tissue, right ring finger, excision: Ganglion cyst 04/15/2024 12:14 PM EST [facility] Gross Description A. Hand, Right, [...] two pieces. FELICIA 04/15/2024 12:14 PM EST [facility] Disclaimer Unless otherwise specified, all tissue is 10% NB formalin fixed and paraffin embedded. 04/15/2024 12:14 PM EST [facility] Tissue Structure of right hand / Unknown 04/12/2024 10:08 AM EST 04/12/2024 10:55 AM EST Angie Carney MD LAB PATHOLOGY [facility] [address] [place] [address], from Last 3 Months Care Teams Agriculture Laborer Relationship Specialty Start Date End Date Pedro Pablo Baker MD [address] [place] [address] PCP - General 03/20/11
--- OUTSIDE RECORDS SUMMARY | 2024-04-18 19:11 | XMS_ITS | Patient Health Record ---
Author Organization [facility] Address [address] [place] [address] Care Team Providers Care Rope Laying Machine Operator Name Role Phone Pedro Pablo Baker MD Primary Care Provider MachelleMerly Bishop Unavailable [phone] Reason For Referral No Information Medications Medication SIG (Take, Route, Frequency, Duration) Notes Start Date End Date Status Estroven Active Albuterol Active hydroCHLOROthiazide 25 MG 1 tablet in th e morning Orally Once a day Active NexIUM 20 MG 1 capsule Orally Onc e a day Active Vitamin B Complex Ac tive Vitamin D Active Social History Tobacco Use: Social History Observation Description Date Details (start date - stop date) Never Smoker NA - NA Tobacco Use/Smoking Question Answer Notes Are you a nonsmoker Alcohol Screen (Audit-C) Question Answer Notes Did you have a drink contain ing alcohol in the past year? Yes How often did you have a dri nk containing alcohol in the past year? 4 or more times a week (4 points) How many drinks did you have on a typical day when you were drinking in the past year? 1 or 2 drinks (0 point) Points 4 Tobacco use other than smoking: Question Answer Notes Are you an other tobacco user? No Problems Problem Type SNOMED Code ICD Code Onset Dates Problem Status W/U Status Risk Notes Problem Essential hypertension (41208160) Essential (primary) hypertension (I10) Active confirmed Problem Uncomplicated asthma (disorder) (207994049) Unspecified asthma, uncomplicated (J45.909) Active confirmed Problem Gastro-esophageal reflux disease with esophagitis (577091669) Gastro-esophageal reflux disease with esophagitis (K21.0) Active confirmed Problem Menopause (882419258) Menopausal and female climacteric states (N95.1) Active confirmed Plan Of Treatment Pending Test Test Name Order Date THIN PREP,HPV,ABBE IF HPV+/CYT-,CT/GC(>2 9YR)(SCRN) 01/02/2018 MM Digital Mammo Screening 01/02/2018 Insurance Providers Payer Name Payer Address Payer Phone Subscriber Number Group Number Insured Name Patient Relationship to Insured Coverage Start Date Coverage End Date [employer] [address] [place] [address] [id number] LILLIAM LIMA Spouse - patient is the spouse of the insured Medical (General) History Surgical History Surgery Date(Month/Year) larynxoscopy (remove polpys from vocal c ords) (benign) 2011
--- OUTSIDE RECORDS SUMMARY | 2024-04-18 19:11 | XMS_ITS | Patient Health Record ---
Author Organization [facility] Address [address] [place] [address] Care Team Providers Care Handkerchief Sample Clerk Name Role Phone Pedro Pablo Baker MD Primary Care Provider Felipe Syed Unavailable [phone] ALLERGIES No Known Allergies REASON FOR REFERRAL No Information MEDICATIONS Medication SIG (Take, Route, Frequency, Duration) Notes Start Date End Date Status Estroven Active Vitamin B Complex - Orally Active albuterol prn Active Vitamin D Active Atorvastatin Calcium 10 MG 1 tablet Orally Once a day for 30 day(s) Active Omeprazole Active Ativan Not-Taking Avalide Active Zoloft 25 MG 1 tablet Orally Once a day for 30 day(s) Active IMMUNIZATIONS Vaccine Route Administration Date Status Comme nts Influenza Unknown 12/18/2017 Administered SOCIAL HISTORY Tobacco Use: Social History Observation Description Date Details (start date - stop date) Never Smoker NA - NA Sex Assigned At : Social History Observation Description Sex Assigned At Unknown Tobacco Use/Smoking Question Answer Notes Patient is a nonsmoker Alcohol Screen Question Answer Notes Did you have a drink contain ing alcohol in the past year? Yes How often did you have a dri nk containing alcohol in the past year? 2 to 3 times a week (3 points) How many drinks did you have on a typical day when you were drinking in the past year? 1 or 2 drinks (0 point) How often did you have 6 or more drinks on one occasion in the past year? Never (0 point) Points 3 Interpretation Positive PROBLEMS Problem Type ICD Code Onset Dates Problem Status W/U Status Risk SNOMED Code Notes Problem Elevated liver enzymes (R74.8) Active confirmed 469960265 Problem Alcoholic liver disease (K70.9) Active confirmed 34066560 Problem Fatty liver (K76.0) Active confirmed 19 3165813 Problem Gastroesophageal reflux disease, unspecified whether esophagitis present (K21.9) Active confirmed 612337306 Problem History of adenomatous polyp of colon (Z86.010) Active confirmed 170413128 Problem Encounter for screening for malignant neoplasm of colon (Z12.11) Active confirmed 443983075 Problem Diverticulosis of colon (K57.30) Active confirmed Diverticulosi s of colon (926515721) Problem Gastritis (K29.70) Active confirmed Gas tritis (6081128) Problem Gastroesophageal reflux (K21.9) Active confirmed Esophageal reflux finding (856732724) PLAN OF TREATMENT Pending Test Test Name Order Date LIVER PROFILE 08/31/2017 IRON + IBC (FE) 08/31/2017 FERRITIN 08/31/2017 CBC w DIFF 08/31/2017 PROTHROMBIN TIME (PT, INR) 08/31/2017 HEPATITIS B, C PROFILE 08/31/2017 [id number] (A1A) 08/31/2017 MITOCHONDRIAL AB 08/31/2017 SMOOTH MUSCLE ANTIBODIES 08/31/2017 FLUOR. ANTINUCLEAR AB SCREEN (CLAIRE) 08/18 HEPATITIS A ANTIBODY-IGG 08/31/2017 Pathology 01/18/2021 Future Test Test Name Order Date UPPER GI ENDOSCOPY 11/25/2020 COLONOSCOPY 11/25/2020 Insurance Providers Payer Name Payer Address Payer Phone Subscriber Number Group Number Insured Name Patient Relationship to Insured Coverage Start Date Coverage End Date R [address] [address] [place] [address] [phone] [id number] FLORY LIMA Self - patient is the insured MEDICAL (GENERAL) HISTORY Medical History History ICD Code Hypertension Asthma Denies NM,DM,CVA,renal disease Phobia to needles GERD--occasional--2-3 times per week--pu t on a PPI by ENT Colonoscopy in 08/2015--Dr. Gann--1 tu bular adenoma removed Elevated LFT's---neg. w/u in 09/2017---felt to be EtOH-related and fatty liver Anxiety/Depression Surgical History Surgery Date(Month/Year) Vocal cord polyps
== END 2024-04-18 15:26 | disposition home or self-care (01) ==
LOC: HO.LNP 15:25
PROVIDERS: Visit Provider Internal Medicine
DX: R35.0 Frequency of micturition (principal)
CPT/HCPCS: 81001; 87086

== ENCOUNTER 2025-03-04 11:26 | Outpatient (REF) | payer OTHER, SELFPAY ==
--- OUTSIDE RECORDS SUMMARY | 2024-02-12 02:15 | XMS_ITS ---
Author Organization Pedro Pablo Baker MD Address [address] [place], [place] [id number] Care Team Providers Care Carbon Plant Grinder Name Role Phone Pedro Pablo Baker Primary Care Provider Results Component Value Reference Range Notes Complete Blood Count Auto Di ff Reviewed date:02/13/2024 06:20:10 PM Interpretation: Performing Lab:[facility], [address] [place] [id number] Notes/Report: White Blood Count 7.9 4.8-10.8 X10*3/uL Red Blood Count 3.94 4.20-5.50 X10*6/uL Hemoglobin 12.7 12.0-16.0 g/dl Hematocrit 37.3 37.0-47.0 % Mean Corpuscular Volume 94.7 80.0-98.0 fL Mean Corpuscular Hemoglobin 32.2 27.0-33.0 pg Mean Corpuscular HGB Conc 34.0 31.0-35.0 g/dl Red Cell Distribution Width 12.8 11.0-16.0 % Platelet Count 209 160-400 X10*3/uL Mean Platelet Volume 10.2 9.4-12.3 fL Neutrophils Percent Auto 70.9 45-73 % Imm Gran Pct Auto 0.5 0.0-0.4 % Lymphocytes Percent Auto 18.8 20-40 % Monocytes Percent Auto 6.6 2-11 % Eosinophils Percent Auto 2.7 0-4 % Basophils Percent Auto 0.5 0-2 % NRBC Pct Auto 0.0 0.0-0.2 /100WBC Neutrophils Absolute Auto 5.6 2.0-8.3 x10*3/u L Imm Gran Abs Auto 0.04 0.00-0.03 X10*3/uL Lymphocytes Absolute Auto 1.5 1.2-4.9 X10*3/u L Monocytes Absolute Auto 0.5 0.1-1.2 X10*3/uL Eosinophils Absolute Auto 0.2 0.0-0.4 X10*3/u L Basophils Absolute Auto 0.0 0.0-0.2 X10*3/uL NRBC Abs Auto 0.000 0.0-0.012 X10*3/uL Comprehensive [place]. Panel Fa st Reviewed date:02/13/2024 06:19:05 PM Interpretation: Performing Lab:[address] [phone] Notes/Report: Sodium 135 135-145 mmol/L Potassium 3.8 3.3-5.1 mmol/L Chloride 97 96-108 mmol/L Carbon Dioxide 30 22-29 mmol/L Anion Gap 12 12-20 Blood Urea Nitrogen 15 9-16 mg/dL Creatinine 0.78 0.5-1.4 mg/dL Estimated Glomerular Filt Rate > 60 Chronic Kidney Disease: Estimated GFR < 60 mL/min/1.73m2 Severe Kidney Disease: Estimated GFR < 15 mL/min/1.73m2 Glucose Fasting 129 60-99 mg/dL A fasting glucose of 126 mg/dl or greater on more than one occasion is considered diagnostic of diabetes. Calcium 9.6 8.4-10.2 mg/dL Bilirubin Total 1.2 0.0-1.0 mg/dL Aspartate Amino Transferase 59 5-31 U/L Alanine Aminotransferase 51 0-31 U/L Total Protein 7.0 6.5-8.0 g/dL Albumin Level 4.4 3.5-5.0 g/dL Alkaline Phosphatase 58 39-117 U/L Liver Panel Reviewed date:02/13/2024 06:17:29 PM Interpretation: Performing Lab:[address] [phone] Notes/Report: Bilirubin Direct 0.4 0.0-0.5 mg/dL Lipid Panel Reviewed date:02/13/2024 06:13:00 PM Interpretation: Performing Lab:[address] [phone] Notes/Report: Triglycerides 168 <150 mg/dL Desirable Triglyceride: less than 150 mg/dL Borderline High Triglyceride 150-199 mg/dL High Triglyceride: 200-499 mg/dL Very High Triglyceride: greater than or equal to 5OO mg/dL Cholesterol 226 <200 mg/dL Desirable Cholesterol: less than 200 mg/dL Borderline High Cholesterol: 200-239 mg/dL High Cholesterol: greater than 239 mg/dL LDL Cholesterol Calculated 144 <100 mg/dL Desirable LDL: less than 100 mg/dL Near Optimal/Above Optimal LDL: 110-129 mg/dL Borderline High LDL: 130-159 mg/dL High LDL: 160-189 mg/dL Very High LDL: greater than or equal to 190 mg/dL HDL Cholesterol 49 >40 mg/dL Desirable HDL: greater than 40 mg/dL Note: This HDL assay may give artificially low results in patients with liver disease. Vitamin B12 Reviewed date:02/13/2024 06:15:55 PM Interpretation: Performing Lab:[address] [phone] Notes/Report: Vitamin B12 1502 200-900 pg/mL NORMAL 200-900 PG/ML INDETERMINATE 160-199 PG/ML DEFICIENT < 160 PG/ML UA ClnCatch+Micro w/rflx Cul t Reviewed date:02/13/2024 06:26:22 PM Interpretation: Performing Lab:[address] [phone] Notes/Report: Urine, Clean Catch Color Urine Yellow Appearance Urine Clear PH 7.0 5.0-9.0 Glucose Urine UA Negative Negative mg/dL Urine Blood Negative Negative Specific [place] - Urine 1.015 1.005-1.025 Urine Protein Negative Neg-Trace mg/dL Urine Ketones Negative Negative mg/dL Nitrite Urine Negative Negative Leukocyte Esterase Urine Large (3+) Negative RBC Urine 0-2 0-2 /HPF WBC Urine >50 0-5 /HPF Squamous Epithelial Cell Urine 0-2 0-2 /HPF Bacteria Urine None Seen None Seen Hyaline Casts Urine 0-2 0-2 /LPF REASON FOR VISIT yearly fasting labs Medications Medication SIG (Take, Route, Frequency, Duration) Notes Start Date End Date Status Diflucan 100 MG 1 tablet Orally once a day for 10 day(s) 09/01/2023 Active Irbesartan-hydroCHLOROth iazide 300-12.5 MG TAKE ONE TABLET BY MOUTH EVERY DAY for 90 Active Super B-50 B Complex - as directed Orally Active Nystatin 693092 UNIT/GM 1 application Ex ternally Twice a day for 10 days 09/01/2023 Active LORazepam 0.5 MG TAKE ONE TABLET BY M OUTH AT BEDTIME NEEDED SPARINGLY for 30 01/07/2024 Active Valtrex 500 MG 1 tablet Orally ever y 12 hrs for 3 days 05/19/2015 Not-Taking Diprolene AF 0.05 % 1 application to affected area Externally Once a day for 30 days 05/21/2013 Not-Takin g Amoxicillin-Pot Clavulanate 875-125 MG 1 tablet Orally every 12 hrs for 10 day(s) 09/14/2020 Not-Taking predniSONE 10 MG 1 tablet with food o r milk Orally 4 tabs for 3 days,3tabs for 3 days, 2 tabs for 3 days, and 1 tab for 3 days for 14 days 09/14/2020 Not-Taking HYDROcodone-Acetaminophe n 5-325 MG 1 tablet as needed Orally every 6 hrs as needed for 7 days 11/12/2020 Not-Taking Albuterol Sulfate HFA 108 (90 Base) MCG/ACT INHALE 1 PUFF BY MOUTH EVERY 4 HOURS NEEDED for 33 Active Vitamin D (Cholecalciferol) 1000 UNIT 2 tablets Orally Once a day for 30 day(s) 05/16/2016 Active Lidocaine 5 % APPLY 1 PATCH EXTERNALLY, REMOVE AFTER 12 HOURS, USE ONCE DAILY FOR 14 DAYS for 15 Not-Taking Sertraline HCl 50 MG TAKE ONE TABLET BY MOUTH EVERY DAY for 90 Active Omeprazole 20 MG TAKE ONE CAPSULE BY MOUTH EVERY DAY for 90 Active Encounters Encounter Location Date Provider Diagnosis Pedro Pablo Baker MD [address] [place] [address] [address] [place], [place] [phone] 02/12/2024 Pedro Pablo Baker Annual physical exam Z00.00 ; Elevated cholesterol with elevated triglycerides E78.2 ; Elevated LFTs R79.89 ; Vitamin B12 deficiency E53.8 and Essential hypertension I10 Assessments Encounter Date Diagnosis (ICD Code) Assessment Notes Treatment Notes Treatment Clinical Notes Section Notes 02/12/2024 Annual physical exam (ICD-10 - Z00.00) 02/12/2024 Elevated cholesterol with elevated triglycerides (ICD-10 - E78.2) 02/12/2024 Elevated LFTs (ICD-10 - R79.89) 02/12/2024 Vitamin B12 deficiency (ICD-10 - E53.8) 02/12/2024 Essential hypertension (ICD-10 - I10) Plan Of Treatment Next Appt Details Provider Name:Pedro Pablo Wilder ier, 04/15/2025 07:45:00 AM, [address] [place] [address], Suite [facility], [place], [place], [phone], Provider Name:Pedro Pablo Wilder ier, 04/21/2025 01:00:00 PM, [address] [place] [address], [place] [address], [place], [place], [phone], Progress Notes * Tameka LIMA SDOB:1960 (64 yo F)Acc No.[id number]:02/12/2024 Progress Note Patient: Tameka MCCALL Provider: Zaid Baker MD :1960 A ge:63 Y S ex:Female Date:02/12/2024 Address:[address] [place] [address], [facility] Subjective: * Chief Complaints: * 1 . Yearly fasting labs. * Medical History: * Medications: T aking Super B-50 B Complex - Capsule as directed Orally , Taking Vitamin D (Cholecalciferol) 1000 UNIT Tablet 2 tablets Orally Once a day , Taking Albuterol Sulfate HFA 108 (90 Base) MCG/ACT Aerosol Solution INHALE 1 PUFF BY MOUTH EVERY 4 HOURS NEEDED , Taking Sertraline HCl 50 MG Tablet TAKE ONE TABLET BY MOUTH EVERY DAY , Taking Omeprazole 20 MG Capsule Delayed Release TAKE ONE CAPSULE BY MOUTH EVERY DAY , Taking Nystatin 708337 UNIT/GM Cream 1 application Externally Twice a day , Taking Diflucan 100 MG Tablet 1 tablet Orally once a day , Taking Irbesartan-hydroCHLOROthiazide 300-12.5 MG Tablet TAKE ONE TABLET BY MOUTH EVERY DAY , Taking LORazepam 0.5 MG Tablet TAKE ONE TABLET BY MOUTH AT BEDTIME NEEDED SPARINGLY , Not-Taking/PRN Lidocaine 5 % Patch APPLY 1 PATCH EXTERNALLY, REMOVE AFTER 12 HOURS, USE ONCE DAILY FOR 14 DAYS , Not-Taking/PRN HYDROcodone-Acetaminophen 5-325 MG Tablet 1 tablet as needed Orally every 6 hrs as needed , Not-Taking/PRN Amoxicillin-Pot Clavulanate 875-125 MG Tablet 1 tablet Orally every 12 hrs , Not-Taking/PRN predniSONE 10 MG Tablet 1 tablet with food or milk Orally 4 tabs for 3 days,3tabs for 3 days, 2 tabs for 3 days, and 1 tab for 3 days , Not-Taking/PRN Valtrex 500 MG Tablet 1 tablet Orally every 12 hrs , Not-Taking/PRN Diprolene AF 0.05 % Cream 1 application to affected area Externally Once a day Objective: * Vitals: Assessment: * Assessment: 1. A nnual physical exam - Z00.00 (Primary) 2 . E levated cholesterol with elevated triglycerides - E78.2 3 . E levated LFTs - R79.89 4 .?Vitamin B12 deficiency - E53.8 5 . E ssential hypertension - I10 ? Plan: * Treatment: 2. E levated cholesterol with elevated triglycerides L AB: PSA,Total (Free>4and<10) (Order Cancelled) L AB: Complete Blood Count Auto Diff (Collection Date & Time - 02/13/2024 01:43 PM) L AB: Comprehensive [place]. Panel Fast (Collection Date & Time - 02/13/2024 01:43 PM) L AB: Liver Panel (Collection Date & Time - 02/13/2024 01:43 PM) L AB: Lipid Panel (Collection Date & Time - 02/13/2024 01:43 PM) L AB: Vitamin B12 (Collection Date & Time - 02/13/2024 01:43 PM) L AB: UA ClnCatch+Micro w/rflx Cult (Collection Date & Time - 02/13/2024 01:36 PM) 3. E levated LFTs L AB: PSA,Total (Free>4and<10) (Order Cancelled) L AB: Complete Blood Count Auto Diff (Collection Date & Time - 02/13/2024 01:43 PM) L AB: Comprehensive [place]. Panel Fast (Collection Date & Time - 02/13/2024 01:43 PM) L AB: Liver Panel (Collection Date & Time - 02/13/2024 01:43 PM) L AB: Lipid Panel (Collection Date & Time - 02/13/2024 01:43 PM) L AB: Vitamin B12 (Collection Date & Time - 02/13/2024 01:43 PM) L AB: UA ClnCatch+Micro w/rflx Cult (Collection Date & Time - 02/13/2024 01:36 PM) 4. V itamin B12 deficiency L AB: PSA,Total (Free>4and<10) (Order Cancelled) L AB: Complete Blood Count Auto Diff (Collection Date & Time - 02/13/2024 01:43 PM) L AB: Comprehensive [place]. Panel Fast (Collection Date & Time - 02/13/2024 01:43 PM) L AB: Liver Panel (Collection Date & Time - 02/13/2024 01:43 PM) L AB: Lipid Panel (Collection Date & Time - 02/13/2024 01:43 PM) L AB: Vitamin B12 (Collection Date & Time - 02/13/2024 01:43 PM) L AB: UA ClnCatch+Micro w/rflx Cult (Collection Date & Time - 02/13/2024 01:36 PM) 5. E ssential hypertension L AB: PSA,Total (Free>4and<10) (Order Cancelled) L AB: Complete Blood Count Auto Diff (Collection Date & Time - 02/13/2024 01:43 PM) L AB: Comprehensive [place]. Panel Fast (Collection Date & Time - 02/13/2024 01:43 PM) L AB: Liver Panel (Collection Date & Time - 02/13/2024 01:43 PM) L AB: Lipid Panel (Collection Date & Time - 02/13/2024 01:43 PM) L AB: Vitamin B12 (Collection Date & Time - 02/13/2024 01:43 PM) L AB: UA ClnCatch+Micro w/rflx Cult (Collection Date & Time - 02/13/2024 01:36 PM) * * The named appointment provid er may or may not be the originator of this progress note, and it is not deemed complete until electronically signed by the appointment provider. Sign off status: Pending * Provider: Zaid Baker MD Date: 04/13/2023 Generated for Wallace Blanchard/Sameer on: 05/07/2024 03:01 PM EST
--- OUTSIDE RECORDS SUMMARY | 2024-04-18 08:30 | XMS_ITS ---
Author Organization Pedro Pablo Baker MD Address [address] [place], [place] [id number] Care Team Providers Care Trail Maintenance Worker Name Role Phone Pedro Pablo Baker Primary Care Provider Allergies No Known Allergies Results Component Value Reference Range Notes UA ClnCatch+Micro w/rflx Cul t Reviewed date:04/18/2024 04:37:16 PM Interpretation: Performing Lab:[facility], [address] [place] [id number] Notes/Report: Urine, Clean Catch Color Urine Yellow Appearance Urine Clear PH 5.5 5.0-9.0 Glucose Urine UA Negative Negative mg/dL Urine Blood Negative Negative Specific Lamont - Urine 1.010 1.005-1.025 Urine Protein Negative Neg-Trace mg/dL Urine Ketones Negative Negative mg/dL Nitrite Urine Negative Negative Leukocyte Esterase Urine Large (3+) Negative RBC Urine 0-2 0-2 /HPF WBC Urine 21-50 0-5 /HPF Squamous Epithelial Cell Urine 0-2 0-2 /HPF Calcium Oxalate Crystals Urine Present Bacteria Urine None Seen None Seen Hyaline Casts Urine 0-2 0-2 /LPF REASON FOR VISIT annual visit Medications Medication SIG (Take, Route, Frequency, Duration) Notes Start Date End Date Status Diprolene AF 0.05 % 1 application to affected area Externally Once a day for 30 days 05/21/2013 Not-Takin g Valtrex 500 MG 1 tablet Orally ever y 12 hrs for 3 days 05/19/2015 Not-Taking Sertraline HCl 100 MG 1 tablet Orally On ce a day for 90 days 04/18/2024 Active Albuterol Sulfate HFA 108 (90 Base) MCG/ACT INHALE 1 PUFF BY MOUTH EVERY 4 HOURS NEEDED for 33 Active Nystatin 632841 UNIT/GM 1 application Ex ternally Twice a day for 10 days 09/01/2023 Active predniSONE 10 MG 1 tablet with food o r milk Orally 4 tabs for 3 days,3tabs for 3 days, 2 tabs for 3 days, and 1 tab for 3 days for 14 days 09/14/2020 Not-Taking HYDROcodone-Acetaminophe n 5-325 MG 1 tablet as needed Orally every 6 hrs as needed for 7 days 11/12/2020 Not-Taking Amoxicillin-Pot Clavulanate 875-125 MG 1 tablet Orally every 12 hrs for 10 day(s) 09/14/2020 Not-Taking LORazepam 0.5 MG TAKE ONE TABLET BY M OUTH AT BEDTIME NEEDED SPARINGLY for 30 01/07/2024 Active Lidocaine 5 % APPLY 1 PATCH EXTERNALLY, REMOVE AFTER 12 HOURS, USE ONCE DAILY FOR 14 DAYS for 15 Not-Taking Sertraline HCl 50 MG TAKE ONE TABLET BY MOUTH EVERY DAY for 90 Active Omeprazole 20 MG TAKE ONE CAPSULE BY MOUTH EVERY DAY for 90 Active Vitamin D (Cholecalciferol) 1000 UNIT 2 tablets Orally Once a day for 30 day(s) 05/16/2016 Active Diflucan 100 MG 1 tablet Orally once a day for 10 day(s) 09/01/2023 Active Irbesartan-hydroCHLOROth iazide 300-12.5 MG TAKE ONE TABLET BY MOUTH EVERY DAY for 90 Active Super B-50 B Complex - as directed Orally Active Social History Tobacco Use: Social History Observation Description Date Details (start date - stop date) Never Smoker NA - NA Tobacco Use/Smoking Question Answer Notes Patient is a nonsmoker Additional Findings: Tobacco Non-User Cu rrent non-smoker, currently using no form of tobacco Alcohol Screen Question Answer Notes Did you have a drink contain ing alcohol in the past year? Yes How often did you have a dri nk containing alcohol in the past year? 2 to 4 times a month (2 points) How many drinks did you have on a typical day when you were drinking in the past year? 1 or 2 drinks (0 point) How often did you have 6 or more drinks on one occasion in the past year? Never (0 point) Points 2 Interpretation Negative Vital Signs Blood pressure systolic 132 mm Hg 04/18/19 25 Blood pressure diastolic 80 mm Hg 025 Height 64 in 04/18/2024 Weight 172 lbs 04/18/2024 BMI 29.52 kg/m2 04/18/2024 Encounters Encounter Location Date Provider Diagnosis Pedro Pablo Baker MD [address] [place] [address] Drive [address] [place], [place] [phone] 04/18/2024 Pedro Pablo Baker Skin yeast infection B37.2 ; Annual physical exam Z00.00 ; Dysthymia F34.1 ; Anxiety F41.9 ; Skin lesion L98.9 ; Frequent urination R35.0 ; Erosive esophagitis K22.10 ; Essential hypertension I10 and Depression screening Z13.31 Assessments Encounter Date Diagnosis (ICD Code) Assessment Notes Treatment Notes Treatment Clinical Notes Section Notes 04/18/2024 Skin yeast infection (ICD-10 - B37.2) 04/18/2024 Annual physical exam (ICD-10 - Z00.00) labs reviewed and discussed with patient 04/18/2024 Dysthymia (ICD-10 - F34.1) will increase sertraline 04/18/2024 Anxiety (ICD-10 - F41.9) 04/18/2024 Skin lesion (ICD-10 - L98.9) will check it at next visit 04/18/2024 Frequent urination (ICD-10 - R35.0) 04/18/2024 Erosive esophagitis (ICD-10 - K22.10) stable, will continue current regiment 04/18/2024 Essential hypertension (ICD-10 - I10) stable, will contionue current regiment 04/18/2024 Depression screening (ICD-10 - Z13.31) negative screen Plan Of Treatment Medication Medication Name Sig Start Date Stop Date Notes Sertraline HCl 100 MG 1 tablet Orally On ce a day for 90 days 04/18/2024 Albuterol Sulfate HFA 108 (9 0 Base) MCG/ACT INHALE 1 PUFF BY MOUTH EVERY 4 HOURS NEEDED for 33 Nystatin 316516 UNIT/GM 1 application Ex ternally Twice a day for 10 days 09/01/2023 Treatment Notes Assessment Notes Annual physical exam labs reviewed and d iscussed with patient Dysthymia will increase sertra line Skin lesion will check it at nex t visit Erosive esophagitis stable, will continu e current regiment Essential hypertension stable, will cont ionue current regiment Depression screening negative screen Next Appt Details Follow Up: 3 Months, Reason: Provider Name:Pedro Pablo Wilder ier, 04/15/2025 07:45:00 AM, [address] [place] [address], [address], [place], [place], [phone], Provider Name:Pedro Pablo Wilder ier, 04/21/2025 01:00:00 PM, [address] [place] [address], [address], [place], [place], [phone], Progress Notes * Tameka LIMA SDOB:1960 (63 yo F)Acc No.[id number]:04/18/2024 Progress Notes Patient: Tameka MCCALL Provider: Zaid Baker MD :1960 A ge:63 Y S ex:Female Date:04/18/2024 Address:[address] [place] [address], [place], [id number] Subjective: * Chief Complaints: * A nnual visit * HPI: D epression Screening: PHQ-9 L ittle interest or pleasure in doing things S everal days, F eeling down, depressed, or hopeless S everal days, T rouble falling or staying asleep, or sleeping too much S everal days, F eeling tired or having little energy S everal days, P oor appetite or overeating N ot at all, F eeling bad about yourself or that you are a failure, or have let yourself or your family down N ot at all, T rouble concentrating on things, such as reading the newspaper or watching television S everal days, M oving or speaking so slowly that other people could have noticed; or the opposite, being so fidgety or restless that you have been moving around a lot more than usual N ot at all, T houghts that you would be better off or of hurting yourself in some way N ot at all, T otal Score 5 , I nterpretation M ild Depression. I nterpretation and Intervention D epression Screening Findings P ositve - Review of PHQ-9 found positive for depression, F ollow-Up for Depression : Existing condition. C ommunication Needs: Communication Needs D oes the patient have a hearing impairment N o, D oes the patient have a vision impairment? N o, D oes the patient have a cognition impairment? N o. S MASON Questions: SDOH Questions I n the past year have you been worried about losing housing? N o, I n the past year have you or any family members you live with been unable to get any of the following when it was really needed? Check all that apply: N one. S ymptom(s): patient is a 63 yo female here for yearly evaluation with review of recent labs and follow up of chronci issues. feeling depressed. * ROS: G eneral/Constitutional: Patient denies f atigue, headache. C hange in appetite?denies. C hills d enies. F ever d enies. O phthalmologic: Blurred vision d enies. D ischarge d enies. P ain d enies. E NT: Patient denies d ecreased sense of smell, any loss of taste, sore throat. D ecreased hearing d enies. S ore throat d enies. S wollen glands?denies. E ndocrine: Cold intolerance d enies. E xcessive thirst d enies. H eat intolerance d enies. W eight loss d enies. R espiratory: Cough d enies. S hortness of breath at rest d enies. S hortness of breath with exertion d enies. W heezing d enies. C ardiovascular: Chest pain at rest d enies. C hest pain with exertion?denies. I rregular heartbeat d enies. S hortness of breath d enies. ? G astrointestinal: Abdominal pain d enies. C hange in bowel habits d enies. D iarrhea d enies. N ausea d enies. R ectal bleeding d enies. V omiting d enies . G enitourinary: Blood in urine d enies. D ifficulty urinating d enies. F requent urination d enies. U rinary incontinence D enies. M usculoskeletal: Patient denies m uscle aches. P ainful joints d enies. W eakness d enies. P eripheral Vascular: Patient denies r ed and blue toes. S kin: Dry skin d enies. I tching d enies. D enies?Mole(s), changes in moles, new moles or any lesions of concern. D enies P hotosensitivity. R myrna d enies. N eurologic: Dizziness d enies. F ainting d enies. H eadache?denies. * Medical History: * Surgical History: * Hospitalization/Major Diagno stic Procedure: * Family History: F ather: 71 yrs. M other: alive 91 yrs. 2 brother(s) , 1 sister(s) . 1 son(s) , 2 daughter(s) . . Father Sepsis Mother-Healthy no family history of mental illness or drug abuse, Denies mental health/substance abuse family history. * Social History: T obacco Use: T obacco Use/Smoking P atient is a n onsmoker, A dditional Findings: Tobacco Non-User C urrent non-smoker, currently using no form of tobacco. D rugs/Alcohol: A lcohol Screen D id you have a drink containing alcohol in the past year? Y es, H ow often did you have a drink containing alcohol in the past year? 2 to 4 times a month (2 points), H ow many drinks did you have on a typical day when you were drinking in the past year? 1 or 2 drinks (0 point), H ow often did you have 6 or more drinks on one occasion in the past year? N ever (0 point), P oints 2 , I nterpretation N egative. M iscellaneous: C affeine: yes, frequency:, 1-2 cups per day. Children: yes. Community involvements: no. Exercise: yes, 1-2 times per week walks everyday. Housing: owning. Living with: spouse. Marital status: . Occupation: works part-time. Pets: dogs. Travel outside of the [place]: no. * Medications: T akingSuper B-50 B Complex - Capsule as directed Orally Vitamin D (Cholecalciferol) 1000 UNIT Tablet 2 tablets Orally Once a day Albuterol Sulfate HFA 108 (90 Base) MCG/ACT Aerosol Solution INHALE 1 PUFF BY MOUTH EVERY 4 HOURS NEEDED Sertraline HCl 50 MG Tablet TAKE ONE TABLET BY MOUTH EVERY DAY Omeprazole 20 MG Capsule Delayed Release TAKE ONE CAPSULE BY MOUTH EVERY DAY Diflucan 100 MG Tablet 1 tablet Orally once a day Irbesartan-hydroCHLOROthiazide 300-12.5 MG Tablet TAKE ONE TABLET BY MOUTH EVERY DAY LORazepam 0.5 MG Tablet TAKE ONE TABLET BY MOUTH AT BEDTIME NEEDED SPARINGLY Taking Super B-50 B Complex - Capsule as directed Orally Taking Vitamin D (Cholecalciferol) 1000 UNIT Tablet 2 tablets Orally Once a day Taking Albuterol Sulfate HFA 108 (90 Base) MCG/ACT Aerosol Solution INHALE 1 PUFF BY MOUTH EVERY 4 HOURS NEEDED Taking Sertraline HCl 50 MG Tablet TAKE ONE TABLET BY MOUTH EVERY DAY Taking Omeprazole 20 MG Capsule Delayed Release TAKE ONE CAPSULE BY MOUTH EVERY DAY Taking Diflucan 100 MG Tablet 1 tablet Orally once a day Taking Irbesartan-hydroCHLOROthiazide 300-12.5 MG Tablet TAKE ONE TABLET BY MOUTH EVERY DAY Taking LORazepam 0.5 MG Tablet TAKE ONE TABLET BY MOUTH AT BEDTIME NEEDED SPARINGLY Not-Taking/PRNNystatin 463856 UNIT/GM Cream 1 application Externally Twice a day Lidocaine 5 % Patch APPLY 1 PATCH EXTERNALLY, REMOVE AFTER 12 HOURS, USE ONCE DAILY FOR 14 DAYS HYDROcodone-Acetaminophen 5-325 MG Tablet 1 tablet as needed Orally every 6 hrs as needed Amoxicillin-Pot Clavulanate 875-125 MG Tablet 1 tablet Orally every 12 hrs predniSONE 10 MG Tablet 1 tablet with food or milk Orally 4 tabs for 3 days,3tabs for 3 days, 2 tabs for 3 days, and 1 tab for 3 days Valtrex 500 MG Tablet 1 tablet Orally every 12 hrs Diprolene AF 0.05 % Cream 1 application to affected area Externally Once a day Medication List reviewed and reconciled with the patientNot-Taking/PRN Nystatin 080485 UNIT/GM Cream 1 application Externally Twice a day Not-Taking/PRN Lidocaine 5 % Patch APPLY 1 PATCH EXTERNALLY, REMOVE AFTER 12 HOURS, USE ONCE DAILY FOR 14 DAYS Not-Taking/PRN HYDROcodone-Acetaminophen 5-325 MG Tablet 1 tablet as needed Orally every 6 hrs as needed Not-Taking/PRN Amoxicillin-Pot Clavulanate 875-125 MG Tablet 1 tablet Orally every 12 hrs Not-Taking/PRN predniSONE 10 MG Tablet 1 tablet with food or milk Orally 4 tabs for 3 days,3tabs for 3 days, 2 tabs for 3 days, and 1 tab for 3 days Not-Taking/PRN Valtrex 500 MG Tablet 1 tablet Orally every 12 hrs Not-Taking/PRN Diprolene AF 0.05 % Cream 1 application to affected area Externally Once a day Medication List reviewed and reconciled with the patient * Allergies: N .K.D.A.yes[Allergies Verified] Objective: * Vitals: H t: 64, Wt: 172, BMI:29.52, BP:132/80, Wt-k.02. * P ast Orders: L ab:Comprehensive [place]. Panel Fast (Order Date - 02/12/2024) (Collection Date & Time - 02/13/2024 01:43 PM) Value Reference Range Sodium 135 135-145 - mmol/L Bilirubin Total 1.2 H 0.0-1.0 - mg/dL Aspartate Amino Transferase 59 H 5-31 - U/L Alanine Aminotransferase 51 H 0-31 - U/L Total Protein 7.0 6.5-8.0 - g/dL Albumin Level 4.4 3.5-5.0 - g/dL Alkaline Phosphatase 58 39-117 - U/L Potassium 3.8 3.3-5.1 - mmol/L Chloride 97 96-108 - mmol/L Carbon Dioxide 30 H 22-29 - mmol/L Anion Gap 12 12-20 - Blood Urea Nitrogen 15 9-16 - mg/dL Creatinine 0.78 0.5-1.4 - mg/dL Estimated Glomerular Filt Rate > 60 - Glucose Fasting 129 H 60-99 - mg/dL Calcium 9.6 8.4-10.2 - mg/dL L ab:Liver Panel (Order Date - 02/12/2024) (Collection Date & Time - 02/13/2024 01:43 PM) Value Reference Range Bilirubin Direct 0.4 0.0-0.5 - mg/dL L ab:Lipid Panel (Order Date - 02/12/2024) (Collection Date & Time - 02/13/2024 01:43 PM) Value Reference Range Triglycerides 168 H <150 - mg/dL Cholesterol 226 H <200 - mg/dL LDL Cholesterol Calculated 144 H <100 - mg/dL HDL Cholesterol 49 >40 - mg/dL L ab:Vitamin B12 (Order Date - 02/12/2024) (Collection Date & Time - 02/13/2024 01:43 PM) Value Reference Range Vitamin B12 1502 H 200-900 - pg/mL L ab:UA ClnCatch+Micro w/rflx Cult (Order Date - 02/12/2024) (Collection Date & Time - 02/13/2024 01:36 PM) Value Reference Range Color Urine Yellow - Appearance Urine Clear - PH 7.0 5.0-9.0 - Glucose Urine UA Negative Negative - mg/dL Urine Blood Negative Negative - Specific Lam[place] - Urine 1.015 1.005-1.025 - Urine Protein Negative Neg-Trace - mg/dL Urine Ketones Negative Negative - mg/dL Nitrite Urine Negative Negative - Leukocyte Esterase Urine Large (3+) A Negative - RBC Urine 0-2 0-2 - /HPF WBC Urine >50 A 0-5 - /HPF Squamous Epithelial Cell Urine 0-2 0-2 - /HP F Bacteria Urine None Seen None Seen - Hyaline Casts Urine 0-2 0-2 - /LPF L ab:Complete Blood Count Auto Diff (Order Date - 02/12/2024) (Collection Date & Time - 02/13/2024 01:43 PM) Value Reference Range White Blood Count 7.9 4.8-10.8 - X10*3/uL Red Blood Count 3.94 L 4.20-5.50 - X10*6/uL Hemoglobin 12.7 12.0-16.0 - g/dl Hematocrit 37.3 37.0-47.0 - % Mean Corpuscular Volume 94.7 80.0-98.0 - fL Mean Corpuscular Hemoglobin 32.2 27.0-33.0 - pg Mean Corpuscular HGB Conc 34.0 31.0-35.0 - g/ dl Red Cell Distribution Width 12.8 11.0-16.0 - % Platelet Count 209 160-400 - X10*3/uL Mean Platelet Volume 10.2 9.4-12.3 - fL Neutrophils Percent Auto 70.9 45-73 - % Imm Gran Pct Auto 0.5 H 0.0-0.4 - % Lymphocytes Percent Auto 18.8 L 20-40 - % Monocytes Percent Auto 6.6 2-11 - % Eosinophils Percent Auto 2.7 0-4 - % Basophils Percent Auto 0.5 0-2 - % NRBC Pct Auto 0.0 0.0-0.2 - /100WBC Neutrophils Absolute Auto 5.6 2.0-8.3 - x10* 3/uL Imm Gran Abs Auto 0.04 H 0.00-0.03 - X10*3/uL Lymphocytes Absolute Auto 1.5 1.2-4.9 - X10* 3/uL Monocytes Absolute Auto 0.5 0.1-1.2 - X10*3/ uL Eosinophils Absolute Auto 0.2 0.0-0.4 - X10* 3/uL Basophils Absolute Auto 0.0 0.0-0.2 - X10*3/ uL NRBC Abs Auto 0.000 0.0-0.012 - X10*3/uL L ab:Urine Culture (Order Date - 02/13/2024) (Collection Date & Time - 02/13/2024) Value Reference Range Urine Culture urogenital contamination. - * Examination: G eneral Examination: GENERAL APPEARANCE: w ell developed, well nourished, in no acute distress. HEAD: n ormocephalic, atraumatic. EYES: p upils equal, round, reactive to light and accommodation, sclera non-icteric. EARS: n ormal. ORAL CAVITY: m ucosa moist. THROAT: c lear. NECK/THYROID: n yao supple, full range of motion, no cervical lymphadenopathy, no bruits. SKIN: w arm and dry, no suspicious lesions, abnormal rt foream with a scaly 1/4 inch lesion that she says came after her surgery last week and she thinks it was where the iv was. HEART: r egular rate and rhythm, S1, S2 normal, no murmurs.? LUNGS: c lear to auscultation bilaterally. BREASTS: N o mass, no lump. ABDOMEN: s oft, nontender, nondistended, bowel sounds present, normal, liver about 2 inches below ribs , no masses palpable. RECTAL EXAM: d one by steam distribution supervisor. FEMALE GENITOURINARY: d one by steam distribution supervisor. EXTREMITIES: n o clubbing, cyanosis, or edema. NEUROLOGIC: n onfocal, motor strength normal upper and lower extremities, sensory exam intact. Assessment: * Assessment: 1. A nnual physical exam - Z00.00 (Primary) 2 . S kin yeast infection - B37.2 3 . D ysthymia - F34.1 4 . A nxiety - F41.9 ?5. S kin lesion - L98.9 6 . F requent urination - R35.0 7 . E rosive esophagitis - K22.10 8 . E ssential hypertension - I10 ? 9 . D epression screening - Z13.31 Plan: * Treatment: 2. S kin yeast infection Refill Nystatin Cream, 752800 UNIT/GM, 1 application, Externally, Twice a day, 10 days, 60, Refills 3. 3. D ysthymia Start Sertraline HCl Tablet, 100 MG, 1 tablet, Orally, Once a day, 90 days, 90 Tablet, Refills 3.? Notes: will increase sertraline 4. S kin lesion Notes: will check it at next visit 5. F requent urination L AB: UA ClnCatch+Micro w/rflx Cult (Collection Date & Time - 04/18/2024 01:30 PM) 6. E rosive esophagitis Notes: stable, will continue current regiment 7. E ssential hypertension Notes: stable, will contionue current regiment 8. D epression screening Notes: negative screen 9. O thers Refill Albuterol Sulfate HFA Aerosol Solution, 108 (90 Base) MCG/ACT, INHALE 1 PUFF BY MOUTH EVERY 4 HOURS NEEDED, 33, 8.5 Gram, Refills 6. * Procedure Codes: * Follow Up: 3 Months * * Sign off status: Completed true * Provider: Zaid Baker MD Date: 0 04/18/2024 Generated for Wallace crowley/Jackson/Derrickitting on: 1 05/07/2024 03:00 PM EST History and Physical Notes * HPI (History of Present Illness) Category Sub-Category Detail Notes Category Not es Symptom(s) patient is a 63 yo female here for yearly evaluation with review of recent labs and follow up of chronci issues. feeling depressed. Depression Screening PHQ-9 Little inte rest or pleasure in doing things: Several days Feeling down, depressed, or hopeless: Se veral days Trouble falling or staying asleep, or sl eeping too much: Several days Feeling tired or having little energy: S everal days Poor appetite or overeating: Not at all Feeling bad about yourself o r that you are a failure, or have let yourself or your family down: Not at all Trouble concentrating on thi ngs, such as reading the newspaper or watching television: Several days Moving or speaking so slowly that other people could have noticed; or the opposite, being so fidgety or restless that you have been moving around a lot more than usual: Not at all Thoughts that you would be b mirella off or of hurting yourself in some way: Not at all Total Score: 5 Interpretation: Mild Depression Interpretation and Intervention Depressi on Screening Findings: Positve - Review of PHQ-9 found positive for depression Follow-Up for Depression: : Existing con dition SDOH Questions SDOH Questions In the past year have you been worried about losing housing?: No In the past year have you or any family members you live with been unable to get any of the following when it was really needed? Check all that apply:: None Communication Needs Communication Needs Does the patient have a hearing impairment: No Does the patient have a vision impairmen t?: No Does the patient have a cognition impair ment?: No Examination Category Sub-Category Detail Notes Category Not es General Examination GENERAL APPEARANCE: well dev eloped, well nourished, in no acute distress HEAD: normocephalic, atrau matic EYES: pupils equal, round, reactive to light and accommodation, sclera non-icteric EARS: normal THROAT: clear NECK/THYROID: neck supple, full ra nge of motion, no cervical lymphadenopathy, no bruits HEART: regular rate and rhy thm, S1, S2 normal, no murmurs LUNGS: clear to auscultatio n bilaterally ABDOMEN: soft, nontender, non distended, bowel sounds present, normal, liver about 2 inches below ribs , no masses palpable NEUROLOGIC: nonfocal, motor stre ngth normal upper and lower extremities, sensory exam intact SKIN: warm and dry, no william picious lesions, abnormal rt foream with a scaly 1/4 inch lesion that she says came after her surgery last week and she thinks it was where the iv was EXTREMITIES: no clubbing, cyanosi s, or edema BREASTS: No mass, no lump RECTAL EXAM: done by steam distribution supervisor FEMALE GENITOURINARY: done by steam distribution supervisor ORAL CAVITY: mucosa moist
--- OUTSIDE RECORDS SUMMARY | 2024-05-27 05:07 | XMS_ITS ---
Author Organization Pedro Pablo Baker MD Address [address] [place], [place] [phone] Care Team Providers Care Rental Agent Name Role Phone Pedro Pablo Baker Primary Care Provider REASON FOR VISIT REFILL LORAZEPAM Medications Medication SIG (Take, Route, Fr equency, Duration) Notes Start Date End Date Status LORazepam 0.5 MG TAKE ONE TABLET BY M OUTH AT BEDTIME NEEDED SPARINGLY for 30 01/07/2024 Activ e Encounters Encounter Location Date Provider Diagnosis Pedro Pablo Baker MD [address] [place] [phone] 05/27/2024 Pedro Pablo Baker Plan Of Treatment Medication Medication Name Sig Start Date Stop Date Notes LORazepam 0.5 MG TAKE ONE TABLET BY M OUTH AT BEDTIME NEEDED SPARINGLY for 30 01/07/2024 Next Appt Details Provider Name:Pedro Pablo newton, 04/15/2025 07:45:00 AM, [address], Suite [facility], [place], [place], [phone], Provider Name:Pedro Pablo newton, 04/21/2025 01:00:00 PM, [address] [place] [address], [place] [address], [place], [place], [phone], Progress Notes * Tameka LIMAOB:1960 (63 yo F)Acc No.[id number]:05/27/2024 Patient: Tameka MCCALL :1960 A ge:63 Y S ex:Female Address:[address] [place] [address], [place] [address] * Refills Refill LORazepam Tablet, 0.5 MG, 30 Tablet, TAKE ONE TABLET BY MOUTH AT BEDTIME NEEDED SPARINGLY, 30, Refills=0 * true * Date: Generated for Wallace crowley/Jackson/Angélicasmitting on: 05/07/2024 03:01 PM EST
--- OUTSIDE RECORDS SUMMARY | 2024-05-28 08:45 | XMS_ITS ---
Author Organization Pedro Pablo Baker MD Address [address] [place], [place] [phone] Care Team Providers Care Mill Operator Name Role Phone Pedro Pablo Baker Primary Care Provider Allergies No Known Allergies REASON FOR VISIT coughing , ear blocked, green mucus, Video [phone] Medications Medication SIG (Take, Route, Frequency, Duration) Notes Start Date End Date Status Diprolene AF 0.05 % 1 application to affected area Externally Once a day for 30 days 05/21/2013 Not-Takin g Valtrex 500 MG 1 tablet Orally ever y 12 hrs for 3 days 05/19/2015 Not-Taking predniSONE 10 MG 1 tablet with [...] as needed for 7 days 11/12/2020 Not-Taking Nystatin 835583 UNIT/GM 1 application Ex ternally Twice a day for 10 days 09/01/2023 Active Albuterol Sulfate HFA 108 (90 Base) MCG/ACT INHALE 1 PUFF BY MOUTH EVERY 4 HOURS NEEDED for 33 Active Lidocaine 5 % APPLY 1 PATCH EXTERNALLY, REMOVE AFTER 12 HOURS, USE ONCE DAILY FOR 14 DAYS for 15 Not-Taking LORazepam 0.5 MG TAKE ONE TABLET BY M OUTH AT BEDTIME NEEDED SPARINGLY for 30 05/27/2024 Active Sertraline HCl 100 MG 1 tablet Orally On ce a day for 90 days 04/18/2024 Active Irbesartan-hydroCHLOROth iazide 300-12.5 MG TAKE ONE TABLET BY MOUTH EVERY DAY for 90 Active Diflucan 100 MG 1 tablet Orally once a day for 10 day(s) 09/01/2023 Not-Taking Omeprazole 20 MG TAKE ONE CAPSULE BY MOUTH EVERY DAY for 90 Active Sertraline HCl 50 MG TAKE ONE TABLET BY MOUTH EVERY DAY for 90 Active Vitamin D (Cholecalciferol) 1000 UNIT 2 tablets Orally Once a day for 30 day(s) 05/16/2016 Active Super B-50 B Complex - as directed Orally Active Amoxicillin-Pot Clavulanate 875-125 MG 1 tablet Orally every 12 hrs for 10 days 05/28/2024 Active Problems Problem Type SNOMED Code ICD Code Onset Dates Problem Status W/U Status Risk Notes Problem Sinusitis (47106567) Sinusitis (J32.9) Active confirmed Vital Signs Height 64 in 05/28/2024 Weight 164 lbs 05/28/2024 BMI 28.15 kg/m2 05/28/2024 weight is 164 at home BP not taken no temp Encounters Encounter Location Date Provider Diagnosis Pedro Pablo Baker MD [address] [facility] [address] [place] [phone] 05/28/2024 Pedro Pablo Baker Sinusitis J32.9 Assessments Encounter Date Diagnosis (ICD Code) Assessment Notes Treatment Notes Treatment Clinical Notes Section Notes 05/28/2024 Sinusitis (ICD-10 - J32.9) patient verbalized understanding of medicatio and directions for use Plan Of Treatment Medication Medication Name Sig Start Date Stop Date Notes Amoxicillin-Pot Clavulanate 875-125 MG 1 tablet Orally every 12 hrs for 10 days 05/28/2024 Treatment Notes Assessment Notes Sinusitis patient verbalized u nderstanding of medicatio and directions for use Next Appt Details Provider Name:Pedro Pablo Wilder ier, 04/15/2025 07:45:00 AM, [address] [facility], [address], [place], [place], [phone], Provider Name:Pedro Pablo Wilder ier, 04/21/2025 01:00:00 PM, [address] [facility], [address], [place], [place], [phone], Progress Notes * Tameka LIMA SDOB:1960 (63 yo F)Acc No.[id number]:05/28/2024 Patient: Tameka MCCALL Provider: Zaid Baker MD :1960 A ge:63 Y S ex:Female Date:05/28/2024 Address:[address] [place] [address], [place], [place] Subjective: * Chief Complaints: * C oughing , ear blocked, green mucusVideo [phone] * HPI: S ymptom(s): Telehealth L ocation of provider rendering services: [address] [facility], L ocation of patient: a t address listed in demographics for today's visit, P atient identification confirmed using: JACLYN Dawkins ame, T elehealth method: V ideo conference where patient is visible to the provider of care, C onsent: P atient verbally consented to treatment, Patient verbally consented to billing insurance company, Patient informed of any privacy concerns related to method of visit, T otal time spend talking with patient (minutes) 1 6. patient is a 63 yo female video telhealth visit, here as emergency for cough ear congestion. feels like sinus infection green phlegm. * ROS: G eneral/Constitutional: Denies C hills. A dmits F atigue. D enies F ever. D enies H eadache. E NT: Patient denies d ecreased sense of smell, any loss of taste, sore throat. A dmits B locked ear(s). D enies S ore throat. R espiratory: Admits C ough. D enies S hortness of breath at rest. A dmits S hortness of breath with exertion. A dmits S putum production. A dmits W heezing. G astrointestinal: Denies D iarrhea. D enies N ausea. M usculoskeletal: Patient denies m uscle aches. P eripheral Vascular: Patient denies r ed and blue toes. * Medical History: * Surgical History: * Hospitalization/Major Diagno stic Procedure: * Medications: T akingSuper B-50 B Complex - Capsule as directed Orally Vitamin D (Cholecalciferol) 1000 UNIT Tablet 2 tablets Orally Once a day Sertraline HCl 50 MG Tablet TAKE ONE TABLET BY MOUTH EVERY DAY Omeprazole 20 MG Capsule Delayed Release TAKE ONE CAPSULE BY MOUTH EVERY DAY Irbesartan-hydroCHLOROthiazide 300-12.5 MG Tablet TAKE ONE TABLET BY MOUTH EVERY DAY Albuterol Sulfate HFA 108 (90 Base) MCG/ACT Aerosol Solution INHALE 1 PUFF BY MOUTH EVERY 4 HOURS NEEDED Nystatin 401910 UNIT/GM Cream 1 application Externally Twice a day Sertraline HCl 100 MG Tablet 1 tablet Orally Once a day LORazepam 0.5 MG Tablet TAKE ONE TABLET BY MOUTH AT BEDTIME NEEDED SPARINGLY Taking Super B-50 B Complex - Capsule as directed Orally Taking Vitamin D (Cholecalciferol) 1000 UNIT Tablet 2 tablets Orally Once a day Taking Sertraline HCl 50 MG Tablet TAKE ONE TABLET BY MOUTH EVERY DAY Taking Omeprazole 20 MG Capsule Delayed Release TAKE ONE CAPSULE BY MOUTH EVERY DAY Taking Irbesartan-hydroCHLOROthiazide 300-12.5 MG Tablet TAKE ONE TABLET BY MOUTH EVERY DAY Taking Albuterol Sulfate HFA 108 (90 Base) MCG/ACT Aerosol Solution INHALE 1 PUFF BY MOUTH EVERY 4 HOURS NEEDED Taking Nystatin 750544 UNIT/GM Cream 1 application Externally Twice a day Taking Sertraline HCl 100 MG Tablet 1 tablet Orally Once a day Taking LORazepam 0.5 MG Tablet TAKE ONE TABLET BY MOUTH AT BEDTIME NEEDED SPARINGLY Not-Taking/PRNDiflucan 100 MG Tablet 1 tablet Orally once a day Lidocaine 5 % Patch APPLY [...] List reviewed and reconciled with the patientNot-Taking/PRN Diflucan 100 MG Tablet 1 tablet Orally once a day Not-Taking/PRN Lidocaine 5 % Patch APPLY 1 PATCH EXTERNALLY, REMOVE AFTER 12 HOURS, USE ONCE DAILY FOR 14 DAYS Not- Taking/PRN HYDROcodone-Acetaminophen 5-325 MG Tablet 1 tablet as [...] Objective: * Vitals: H t: 64, Wt: 164, BMI:28.15, Wt-k.39. weight is 164 at home BP not taken no temp. * Examination: G eneral Examination: GENERAL APPEARANCE: w ell developed, well nourished. ? Assessment: * Assessment: 1. S inusitis - J32.9 (Primary) Plan: * Treatment: * Procedure Codes: * * Sign off status: Completed true * Provider: Zaid Baker MD Date: 0 05/28/2024 Generated for Wallace crowley/Jackson/Angélicasmitting on: 1 05/07/2024 03:00 PM EST History and Physical Notes * HPI (History of Present Illness) Category Sub-Category Detail Notes Category Not es Symptom(s) Telehealth Location of prov ider rendering services:: [address], [address] patient is a 63 yo female video telhealth visit, here as emergency for cough ear congestion. feels like sinus infection green phlegm Location of patient:: at address listed in demographics for today's visit Patient identification confirmed using:: Name, Telehealth method:: Video co nference where patient is visible to the provider of care Consent:: Patient verbally c onsented to treatment, Patient verbally consented to billing insurance company, Patient informed of any privacy concerns related to method of visit Total time spend talking with patient (m inutes): 16 Examination Category Sub-Category Detail Notes Category Not es General Examination GENERAL APPEARANCE: well developed , well nourished
--- OUTSIDE RECORDS SUMMARY | 2024-07-18 11:15 | XMS_ITS ---
Author Organization Pedro Pablo Baker MD Address [address] [place] [phone] Care Team Providers Care Android Architect Name Role Phone Pedro Pablo Baker Primary Care Provider [phone] Allergies No Known Allergies REASON FOR VISIT 3 MO F/U Encounters Encounter Location Date Provider Diagnosis Pedro Pablo Baker MD [address] [facility] [address] [place] [phone] 07/18/2024 Pedro Pablo Baker Plan Of Treatment Next Appt Details Provider Name:Pedro Pablo newton, 04/15/2025 07:45:00 AM, [address] [place] [address], [address], [phone], Provider Name:Pedro Pablo newton, 04/21/2025 01:00:00 PM, [address] [place] [address], [address], [phone], Progress Notes * Tameka LIMA SDOB:1960 (64 yo F)Acc No.[id number]:07/18/2024 Progress Notes Patient: Tameka MCCALL Provider: Zaid Baker MD :1960 A ge:63 Y S ex:Female Date:07/18/2024 [address], [place], [place] Subjective: * Chief Complaints: * 1 . [...] 2020 due 5yrs (2025), Mammo was 01/29, APPLICATION SECURITY SPECIALIST, Dr. Amalia Lopes, 01/30. * Allergies: N .K.D.A. Objective: * Vitals: Assessment: Plan: * Treatment: * * The named appointment provid er may or may not be the originator of this progress note, and it is not deemed complete until electronically signed by the appointment provider. Sign off status: Pending * Provider: Zaid Baker MD Date: 0 07/18/2024 Generated for Wallace crowley/Jackson/Sameer on: 05/07/2024 03:02 PM EST
--- OUTSIDE RECORDS SUMMARY | 2024-07-25 06:21 | XMS_ITS ---
Author Organization Pedro Pablo Baker MD Address [address] [place], [place] [phone] Care Team Providers Care Harbor Pilot Name Role Phone Pedro Pablo Baker Primary Care Provider REASON FOR VISIT REFILL LORAZAPAM Medications Medication SIG (Take, Route, Fr equency, Duration) Notes Start Date End Date Status LORazepam 0.5 MG TAKE ONE TABLET BY M OUTH AT BEDTIME NEEDED SPARINGLY for 30 07/25/2024 Activ e Encounters Encounter Location Date Provider Diagnosis Pedro Pablo Baker MD [address] [facility] [address] [place], [place] [phone] 07/25/2024 Pedro Pablo Baker Plan Of Treatment Medication Medication Name Sig Start Date Stop Date Notes LORazepam 0.5 MG TAKE ONE TABLET BY M OUTH AT BEDTIME NEEDED SPARINGLY for 30 07/25/2024 Next Appt Details Provider Name:Pedro Pablo newton, 04/15/2025 07:45:00 AM, [address] [facility] [address], [address] [facility], [place], [place], [phone], Provider Name:Pedro Pablo newton, 04/21/2025 01:00:00 PM, [address] [place] [address], Suite [facility], [place], [place], [phone], Progress Notes * Tameka LIMA SDOB:1960 (63 yo F)Acc No.[id number]:07/25/2024 Patient: Tameka MCCALL :1960 A ge:63 Y S ex:Female Address:[address] [place] [address], [place] [address] * Refills Refill LORazepam Tablet, 0.5 MG, 30 Tablet, TAKE ONE TABLET BY MOUTH AT BEDTIME NEEDED SPARINGLY, 30, Refills=0 * true * Date: Generated for Wallace crowley/Jackson/Angélicasmitting on: 05/07/2024 03:01 PM EST
--- OUTSIDE RECORDS SUMMARY | 2024-09-19 05:15 | XMS_ITS ---
Author Organization Pedro Pablo Baker MD Address [address] [place], [place] [phone] Care Team Providers Care Pleasure Craft Sailor Name Role Phone Pedro Pablo Baker Primary [...] 4 HOURS NEEDED for 33 Active Nystatin 164988 UNIT/GM 1 application Ex ternally Twice a day for 10 days 09/01/2023 Active Super B-50 B Complex - as directed Orally Active Vitamin D (Cholecalciferol) 1000 UNIT 2 tablets Orally Once a day for 30 day(s) 05/16/2016 Active Problems Problem Type SNOMED Code ICD Code Onset Dates Problem Status W/U Status Risk Notes Problem Sciatica (75255820) Sciatica (M54.30) Active confirmed Vital Signs Blood pressure systolic 122 mm Hg 09/20/19 25 Blood pressure diastolic 78 mm Hg 025 Height 64 in 09/19/2024 Weight 166 lbs 09/19/2024 BMI 28.49 kg/m2 09/19/2024 Encounters Encounter Location Date Provider Diagnosis Pedro Pablo Baker MD [address] [place] [address] Drive [address] [place] [phone] 09/19/2024 Pedro Pablo Baker Sciatica M54.30 Assessments [...] Manuel Tina ier, 04/15/2025 07:45:00 AM, [address], [address], [place], [place], [phone], Provider Name:Pedro Pablo Jackson Tina ier, 04/21/2025 01:00:00 PM, [address], [address], [place], [place], [phone], Progress Notes * Tameka LIMA SDOB:1960 (64 yo F)Acc No.[id number]:09/19/2024 Progress Notes Patient: Tameka MCCALL Provider: Zaid Baker MD :1960 A ge:64 Y S ex:Female Date:09/19/2024 Address:[address] [place] [address], [place], [place] Subjective: * Chief Complaints: * l ower [...] BY MOUTH EVERY 4 HOURS NEEDED Nystatin 522437 UNIT/GM Cream 1 application Externally Twice a [...] MOUTH EVERY 4 HOURS NEEDED Taking Nystatin 138280 UNIT/GM Cream 1 application Externally Twice a [...] 0 09/19/2024 Generated for Wallace crowley/Jackson/Sameer on: 05/07/2024 03:00 PM EST History and Physical [...]
--- OUTSIDE RECORDS SUMMARY | 2024-12-31 10:45 | XMS_ITS ---
Author Organization Pedro Pablo Baker MD Address [address] [place], [place] [id number] Care Team Providers Care Acid Mixer Name Role Phone Pedro Pablo Baker Primary Care Provider Allergies No Known Allergies REASON FOR VISIT Bronchitis x 6 days Covid negative this afternoon, Video [phone] Medications Medication SIG (Take, Route, Frequency, Duration) Notes Start Date End Date Status predniSONE 10 MG as directed Orally 4 tabs for 3 days,3tabs for 3 days, 2 tabs for 3 days, and 1 tab for 3 days for 14 days 12/31/2024 Active Albuterol Sulfate HFA 108 (90 Base) MCG/ACT 1 puff as needed Inhalation every 4 hrs for 30 days 12/31/2024 Active Zithromax Z-Pasquale 250 MG 2 tablet on the f irst day, then 1 tablet daily for 4 days Orally Once a day for 5 day(s) 12/31/2024 Active Diprolene AF 0.05 % 1 application to affected area Externally Once a day for 30 days 05/21/2013 Not-Takin g Valtrex 500 MG 1 tablet Orally ever y 12 hrs for 3 days 05/19/2015 Not-Taking Diflucan 100 MG 1 tablet Orally once [...] 3 days for 14 days 09/14/2020 Not-Taking LORazepam 0.5 MG TAKE ONE TABLET BY M OUTH ONCE DAILY AT BEDTIME NEEDED SPARINGLY for 30 12/02/2024 Active Albuterol Sulfate HFA 108 (90 Base) MCG/ACT INHALE 1 PUFF BY MOUTH EVERY 4 HOURS NEEDED for 33 Active Nystatin 224646 UNIT/GM 1 application Ex ternally Twice a day for 10 days 09/01/2023 Active Sertraline HCl 100 MG 1 tablet [...] Problem Status W/U Status Risk Notes Problem Asthmatic bronchitis (301144989) Asthmatic bronchitis (J45.909) Active confirmed Vital Signs Height 64 in 12/31/2024 Weight 160 lbs 12/31/2024 BMI 27.46 kg/m2 12/31/2024 weight is 160 at home BP not taken no temp Encounters Encounter Location Date Provider Diagnosis Pedro Pablo Baker MD [address] [place] [address] Drive [address] [place], [place] [phone] 12/31/2024 Pedro Pablo Baker Asthmatic bronchitis J45.909 Assessments Encounter Date Diagnosis (ICD Code) Assessment Notes Treatment Notes Treatment Clinical Notes Section Notes 12/31/2024 Asthmatic bronchitis (ICD-10 - J45.909) Plan Of Treatment Medication Medication Name Sig Start Date Stop Date Notes predniSONE 10 MG as directed Orally 4 tabs for 3 days,3tabs for 3 days, 2 tabs for 3 days, and 1 tab for 3 days for 14 days 12/31/2024 Albuterol Sulfate HFA 108 (9 0 Base) MCG/ACT 1 puff as needed Inhalation every 4 hrs for 30 days 12/31/2024 Zithromax Z-Pasquale 250 MG 2 tablet on the f irst day, then 1 tablet daily for 4 days Orally Once a day for 5 day(s) 12/31/2024 Next Appt Details Provider Name:Pedro Pablo Jackson Tina ier, 04/15/2025 07:45:00 AM, [address] [place] [address], [address], [place], [place], [phone], Provider Name:Pedro Pablo Jackson Tina ier, 04/21/2025 01:00:00 PM, [address] [place] [address], [address], [place], [place], [phone], Progress Notes * Tameka LIMA SDOB:1960 (64 yo F)Acc No.[id number]:12/31/2024 Patient: Tameka MCCALL Provider: Zaid Baker MD :1960 A ge:64 Y S ex:Female Date:12/31/2024 Address:[address] [place] [address], [place], [phone] Subjective: * Chief Complaints: * B ronchitis x 6 days Covid negative this afternoonVideo [phone] * HPI: S ymptom(s): green phlegm. and coughing. wheezing. needs inhaler. using it with some help. Telehealth L ocation of provider rendering services: [address] [facility], [address], L ocation of patient: [...] spend talking with patient (minutes) 1 6. * ROS: G eneral/Constitutional: Denies C hills. D enies F atigue. D enies F ever. A dmits H eadache. E NT: Denies S ore throat. R espiratory: Admits C ough. A dmits S hortness of breath at rest. A dmits S hortness of breath with exertion. A dmits S putum production. A dmits W heezing. G astrointestinal: Denies D iarrhea. A dmits N ausea. * Medical History: * Surgical History: * Hospitalization/Major Diagno stic Procedure: * Medications: T akingSuper B-50 B Complex - Capsule as directed Orally Vitamin D (Cholecalciferol) 1000 UNIT Tablet 2 tablets Orally Once a day Albuterol Sulfate HFA 108 (90 Base) MCG/ACT Aerosol Solution INHALE 1 PUFF BY MOUTH EVERY 4 HOURS NEEDED Nystatin 504925 UNIT/GM Cream 1 application Externally Twice a day Sertraline HCl 100 MG Tablet 1 tablet Orally Once a day Irbesartan-hydroCHLOROthiazide 300-12.5 MG Tablet TAKE ONE TABLET BY MOUTH EVERY DAY LORazepam 0.5 MG Tablet TAKE ONE TABLET BY MOUTH ONCE DAILY AT BEDTIME NEEDED SPARINGLY Taking Super B-50 B Complex - Capsule as directed Orally Taking Vitamin D (Cholecalciferol) 1000 UNIT Tablet 2 tablets Orally Once a day Taking Albuterol Sulfate HFA 108 (90 Base) MCG/ACT Aerosol Solution INHALE 1 PUFF BY MOUTH EVERY 4 HOURS NEEDED Taking Nystatin 544792 UNIT/GM Cream 1 application Externally Twice a day Taking Sertraline HCl 100 MG Tablet 1 tablet Orally Once a day Taking Irbesartan-hydroCHLOROthiazide 300-12.5 MG Tablet TAKE ONE TABLET BY MOUTH EVERY DAY Taking LORazepam 0.5 MG Tablet TAKE ONE TABLET BY MOUTH ONCE DAILY AT BEDTIME NEEDED SPARINGLY Not-Taking/PRNDiflucan 100 MG Tablet 1 tablet Orally once a day Lidocaine 5 % Patch APPLY 1 PATCH EXTERNALLY, REMOVE AFTER 12 HOURS, USE ONCE DAILY FOR 14 DAYS HYDROcodone-Acetaminophen 5-325 MG Tablet 1 tablet as needed Orally every 6 hrs as needed Amoxicillin-Pot Clavulanate 875- 125 MG Tablet 1 tablet [...] Objective: * Vitals: H t: 64, Wt: 160, BMI:27.46, Wt-k.58. weight is 160 at home BP not taken no temp. * Examination: G eneral Examination: GENERAL APPEARANCE: a lert, well hydrated, in no distress coughing and wheezing. Assessment: * Assessment: 1. A sthmatic bronchitis - J45.909 (Primary) Plan: * Treatment: * Procedure Codes: * * Sign off status: Completed true * Provider: Zaid Baker MD Date: 1 Generated for Wallace crowley/Jackson/Sameer on: 05/07/2024 03:00 PM EST History and Physical Notes * HPI (History of Present Illness) Category Sub-Category Detail Notes Category Not es Symptom(s) Telehealth Location of prov ider rendering services:: [address], [address] Location of patient:: at address listed in [...] alert, w ell hydrated, in no distress coughing and wheezing
--- OUTSIDE RECORDS SUMMARY | 2025-01-21 04:15 | XMS_ITS ---
Author Organization Pedro Pablo Baker MD Address [address] [place], [place] [address] Care Team Providers Care Motor Equipment Commanding Officer Name Role Phone Pedro Pablo Baker Primary Care Provider Allergies No Known Allergies REASON FOR VISIT Still coughing, Video [phone] Medications Medication SIG (Take, Route, Frequency, Duration) Notes Start Date End Date Status Super B-50 B Complex - as directed Orally Active Vitamin D (Cholecalciferol) 1000 UNIT 2 tablets Orally Once a day for 30 day(s) 05/16/2016 Active Amoxicillin-Pot Clavulanate 875-125 MG 1 tablet Orally every 12 hrs for 10 day(s) 09/14/2020 Not-Taking Valtrex 500 MG 1 tablet Orally ever y 12 hrs for 3 days 05/19/2015 Not-Taking Diprolene AF 0.05 % 1 application to affected area Externally Once a day for 30 days 05/21/2013 Not-Takin g Diflucan 100 MG 1 tablet Orally once a day for 10 day(s) 09/01/2023 Not-Taking Lidocaine 5 % APPLY 1 PATCH EXTERNALLY, REMOVE AFTER 12 HOURS, USE ONCE DAILY FOR 14 DAYS for 15 Not-Taking HYDROcodone-Acetaminophe n 5-325 MG 1 tablet as needed Orally every 6 hrs as needed for 7 days 11/12/2020 Not-Taking predniSONE 10 MG 1 tablet with food o r milk Orally 4 tabs for 3 days,3tabs for 3 days, 2 tabs for 3 days, and 1 tab for 3 days for 14 days 09/14/2020 Active Sertraline HCl 100 MG 1 tablet Orally On ce a day for 90 days 04/18/2024 Active Irbesartan-hydroCHLOROth iazide 300-12.5 MG TAKE ONE TABLET BY MOUTH EVERY DAY for 90 Active LORazepam 0.5 MG TAKE ONE TABLET BY M OUTH ONCE DAILY AT BEDTIME NEEDED SPARINGLY for 30 12/02/2024 Active Albuterol Sulfate HFA 108 (90 Base) MCG/ACT 1 puff as needed Inhalation every 4 hrs for 30 days 12/31/2024 Active Albuterol Sulfate HFA 108 (90 Base) MCG/ACT INHALE 1 PUFF BY MOUTH EVERY 4 HOURS NEEDED for 33 Active Nystatin 178867 UNIT/GM 1 application Ex ternally Twice a day for 10 days 09/01/2023 Active Vital Signs Height 64 in 01/21/2025 weight at home is 164 no BP no temp Encounters Encounter Location Date Provider Diagnosis Pedro Pablo Baker MD [address] [place] [address] [place] [id number] 01/21/2025 Pedro Pablo Baker Asthmatic bronchitis J45.909 Assessments Encounter Date Diagnosis (ICD Code) Assessment Notes Treatment Notes Treatment Clinical Notes Section Notes 01/21/2025 Asthmatic bronchitis (ICD-10 - J45.909) will continue current regiment and will continue to monitor Plan Of Treatment Medication Medication Name Sig Start Date Stop Date Notes predniSONE 10 MG 1 tablet with food o r milk Orally 4 tabs for 3 days,3tabs for 3 days, 2 tabs for 3 days, and 1 tab for 3 days for 14 days 09/14/2020 Treatment Notes Assessment Notes Asthmatic bronchitis will continue curre nt regiment and will continue to monitor Next Appt Details Provider Name:Pedro Pablo newton, 04/15/2025 07:45:00 AM, [address] [place] [address], Suite [facility], [place], [place], [phone], Provider Name:Pedro Pablo newton, 04/21/2025 01:00:00 PM, [address] [place] [address], Suite [facility], [place], [place], [phone], Progress Notes * Tameka LIMA SDOB:1960 (64 yo F)Acc No.[id number]:01/21/2025 Patient: Tameka MCCALL Provider: Zaid Baker MD :1960 A ge:64 Y S ex:Female Date:01/21/2025 Address:[address] [place] [address], [facility] Subjective: * Chief Complaints: * S till coughingVideo [phone] * HPI: S ymptom(s): Telehealth L ocation of provider rendering services: [address], [address], L ocation of patient: a [...] otal time spend talking with patient (minutes) 2 0. patient is a 64 yo female video telehealth visit, still with complaint of cough, here for follow up. still coughing. no phlegm. * ROS: G eneral/Constitutional: Denies C [...] D enies N ausea. * Medical History: * Surgical History: * Hospitalization/Major Diagno stic Procedure: * Medications: T akingSuper B-50 B Complex - Capsule as directed Orally Vitamin D (Cholecalciferol) 1000 UNIT Tablet 2 tablets Orally Once a day Albuterol Sulfate HFA 108 (90 Base) MCG/ACT Aerosol Solution INHALE 1 PUFF BY MOUTH EVERY 4 HOURS NEEDED Nystatin 162555 UNIT/GM Cream 1 application Externally Twice a day Sertraline HCl 100 MG Tablet 1 tablet Orally Once a day Irbesartan-hydroCHLOROthiazide 300-12.5 MG Tablet TAKE ONE TABLET BY MOUTH EVERY DAY LORazepam 0.5 MG Tablet TAKE ONE TABLET BY MOUTH ONCE DAILY AT BEDTIME NEEDED SPARINGLY Albuterol Sulfate HFA 108 (90 Base) MCG/ACT Aerosol Solution 1 puff as needed Inhalation every 4 hrs Taking Super B-50 B Complex - Capsule as directed Orally Taking Vitamin D (Cholecalciferol) 1000 UNIT Tablet 2 tablets Orally Once a day Taking Albuterol Sulfate HFA 108 (90 Base) MCG/ACT Aerosol Solution INHALE 1 PUFF BY MOUTH EVERY 4 HOURS NEEDED Taking Nystatin 170557 UNIT/GM Cream 1 application Externally Twice a day Taking Sertraline HCl 100 MG Tablet 1 tablet Orally Once a day Taking Irbesartan-hydroCHLOROthiazide 300-12.5 MG Tablet TAKE ONE TABLET BY MOUTH EVERY DAY Taking LORazepam 0.5 MG Tablet TAKE ONE TABLET BY MOUTH ONCE DAILY AT BEDTIME NEEDED SPARINGLY Taking Albuterol Sulfate HFA 108 (90 Base) MCG/ACT Aerosol Solution 1 puff as needed Inhalation every 4 hrs Not-Taking/PRNDiflucan 100 MG Tablet 1 tablet Orally [...] Tablet 1 tablet Orally once a day Not- Taking/PRN Lidocaine 5 % Patch APPLY 1 PATCH [...] to affected area Externally Once a day DiscontinuedZithromax Z-Pasquale 250 MG Tablet 2 tablet on the first day, then 1 tablet daily for 4 days Orally Once a day predniSONE 10 MG Tablet as directed Orally 4 tabs for 3 days,3tabs for 3 days, 2 tabs for 3 days, and 1 tab for 3 days Medication List reviewed and reconciled with the patientDiscontinued Zithromax Z-Pasquale 250 MG Tablet 2 tablet on the first day, then 1 tablet daily for 4 days Orally Once a day Discontinued predniSONE 10 MG Tablet as directed Orally 4 tabs for 3 days,3tabs for 3 days, 2 tabs for 3 days, and 1 tab for 3 days Medication List reviewed and reconciled with the patient * Allergies: N .K.D.A.yes[Allergies Verified] Objective: * Vitals: H t: 64. weight at home is 164 n o BP no temp. * Examination: G eneral Examination: GENERAL APPEARANCE: a lert, well hydrated, in no distress.? Assessment: * Assessment: 1. A sthmatic bronchitis - J45.909 (Primary) Plan: * Treatment: * Procedure Codes: * * Sign off status: Completed true * Provider: Zaid Baker MD Date: 03/23/2024 Generated for Wallace crowley/Jackson/Sameer on: 05/07/2024 03:01 PM EST History and Physical Notes * HPI (History of Present Illness) Category Sub-Category Detail Notes Category Not es Symptom(s) [facility] [address], [address] patient is a 64 yo female video telehealth visit, still with complaint of cough, here for follow up. still coughing. no phlegm Location of patient:: at address listed [...] time spend talking with patient (m inutes): 20 Examination Category Sub-Category Detail Notes Category Not es General Examination GENERAL APPEARANCE: alert, w ell hydrated, in no distress
--- NOTE | ~2025-03-04 | XR_ITS ---
EXAMINATION: XR KNEE, RIGHT CLINICAL INFORMATION: M25.569 - Pain in unspecified knee COMPARISON: March 02, 2021 TECHNIQUE: AP in standing position both knees. Lateral and sunrise views of the right knee. FINDINGS: Joint space narrowing involving mostly the medial compartment with sclerosis along the articular surface of the medial tibial plateau and medial femoral condyle. Small marginal osteophyte formation in the femoral condyles and tibial plateau, medial compartment. Suprapatellar bursa joint effusion, small volume. No acute fracture or dislocation. There is a 6 mm well-corticated calcification in the inferior aspect of the Hoffa's fat. XR/XR knee RT 3V IMPRESSION: Medial compartment osteoarthrosis/osteoarthritis, moderate. Small volume suprapatellar bursa joint effusion. Electronically signed by: Sebas Ch MD 03/04/2025 01:28 PM MANNY
--- OUTSIDE RECORDS SUMMARY | 2025-03-06 15:00 | XMS_ITS | Patient Health Record ---
Author Organization [facility] Address [address] [place] [address] Care Team Providers Care Insurance Underwriter Sales Name Role Phone Pedro Pablo Baker MD Primary Care Provider Felipe Syed Unavailable [phone] Allergies No Known Allergies Reason For Referral [...] Info Options Details Miscellaneous: Marital status: Occupation: [employer] Section Notes: Nonsmoker; 6-10 beers/wine Q D---occasional [...] Problem Screening for malignant neoplasm of colon (295070978) Encounter for screening for malignant neoplasm of colon (Z12.11) Active confirmed Problem History of adenomatous polyp of colon (527380792) History of adenomatous polyp of colon (Z86.010) Active confirmed Problem Elevated liver enzymes level (249638696) Elevated liver enzymes (R74.8) Active confirmed Problem Fatty liver (041916377) Fatty liver (K76.0) Active confirmed Problem Alcoholic liver disease (69613442) Alcoholic liver disease (K70.9) Active confirmed Problem Gastritis (5114915) Gastritis (K29.70) Active c onfirmed Problem Esophageal reflux finding (119558759) Gastroesophageal reflux (K21.9) Active confirmed Problem Diverticulosis of colon (490911178) Diverticulosis of colon (K57.30) Active confirmed Problem Gastroesophageal reflux disease (954401307) Gastroesophageal reflux disease, unspecified whether esophagitis present (K21.9) Active confirmed Plan Of Treatment Pending Test Test Name Order Date LIVER PROFILE 08/31/2017 IRON + IBC (FE) 08/31/2017 FERRITIN 08/31/2017 CBC w DIFF 08/31/2017 PROTHROMBIN TIME (PT, INR) 08/31/2017 HEPATITIS B, C PROFILE 08/31/2017 XFTFL-1-ILODCTUJEER (A1A) 08/31/2017 MITOCHONDRIAL AB 08/31/2017 SMOOTH MUSCLE ANTIBODIES 08/31/2017 FLUOR. ANTINUCLEAR AB SCREEN (CLAIRE) 08/18 HEPATITIS A ANTIBODY-IGG 08/31/2017 Pathology 01/18/2021 Future Test Test Name Order Date UPPER GI ENDOSCOPY 11/25/2020 COLONOSCOPY 11/25/2020 Insurance Providers Payer Name Payer Address Payer Phone Subscriber Number Group Number Insured Name Patient Relationship to Insured Coverage Start Date Coverage End Date [employer] [address] [address] [place] [id number] FLORY LIMA Self - patient is the insured Medical (General) History Medical History History ICD Code Hypertension Asthma Denies ID,DM,CVA,renal disease Phobia to needles GERD--occasional--2-3 times per week--pu t on a PPI by ENT Colonoscopy in 08/2015--Dr. Gann--1 tu bular adenoma removed Elevated LFT's---neg. w/u in 09/2017---felt to be EtOH-related and fatty liver Anxiety/Depression Surgical History Surgery Date(Month/Year) Vocal cord polyps
--- OUTSIDE RECORDS SUMMARY | 2025-03-06 15:01 | XMS_ITS | Patient Health Record ---
Author Organization [facility] Address [address] [place] [address] Care Team Providers Care Brick Cleaner Name Role Phone Pedro Pablo Baker MD Primary Care Provider MachelleMerly Bishop Unavailable [phone] Reason For Referral No Information Medications Medication [...] W/U Status Risk Notes Problem Essential hypertension (41851759) Essential (primary) hypertension (I10) Active confirmed Problem Uncomplicated asthma (disorder) (430507251) Unspecified asthma, uncomplicated (J45.909) Active confirmed Problem Gastro-esophageal reflux disease with esophagitis (606493438) Gastro-esophageal reflux disease with esophagitis (K21.0) Active confirmed Problem Menopause (348554656) Menopausal and female climacteric states (N95.1) Active confirmed Plan Of Treatment Pending Test Test Name Order Date THIN PREP,HPV,ABBE IF HPV+/CYT-,CT/GC(>2 9YR)(SCRN) 01/02/2018 MM Digital Mammo Screening 01/02/2018 Insurance Providers Payer Name Payer Address Payer Phone Subscriber Number Group Number Insured Name Patient Relationship to Insured Coverage Start Date Coverage End Date [employer] [address] [place] [address] [id number] LILLIAM LIMA Spouse - patient is the spouse of the insured Medical (General) History Surgical History Surgery Date(Month/Year) larynxoscopy (remove polpys from vocal c ords) (benign) 2011
--- OUTSIDE RECORDS SUMMARY | 2025-03-06 15:02 | XMS_ITS | Patient Health Record ---
Author Organization Pedro Pablo Baker MD Address [address] [place], [place] [id number] Care Team Providers Care Vice President Of Brand Management Name Role Phone Pedro Pablo Baker Primary Care Provider Allergies No Known Allergies Results Component Value Reference Range Notes UA ClnCatch+Micro w/rflx Cul t Reviewed date:04/18/2024 04:37:16 PM Interpretation: Performing Lab:[facility], [address] [place] [phone] Notes/Report: Urine, Clean Catch Color Urine Yellow Appearance Urine Clear PH 5.5 5.0-9.0 Glucose Urine UA Negative Negative mg/dL Urine Blood Negative Negative Specific [place] - Urine 1.010 1.005-1.025 Urine Protein Negative [...] Culture Reviewed date:04/19/2024 12:35:14 PM Interpretation: Performing Lab:[facility], [address] [place] [phone] Notes/Report: Urine Culture Report Result Urine Culture < 10,000 cfu/ml Reason For Referral Reason SCIATICA Diagnosis 1 Sciatica (M54.30) Referral Organization Pedro Pablo Baker MD Referring Provider First Name Pedro Pablo Referring Provider Last Name Olivia Referring Provider Speciality Internal M edicine Referred Provider [facility] [employer] [facility] Referred Provider Specialty Pain [...] hrs for 10 day(s) 09/14/2020 Not-Taking Nystatin 762382 UNIT/GM 1 application Ex ternally Twice a [...] Administered pt was given the vaccine at [facility] in [place]. Fluarix Quadrivalent IM Intramuscular 12/26/2017 Administe red [...] Status W/U Status Risk Notes Problem Sciatica (41717842) Sciatica (M54.30) Active confirmed Problem 069375800 Tubular adenoma (D36.9) Active confirmed Problem 01692940 Anxiety (F41.9) Active confirmed Problem Asthmatic bronchitis (241924723) Asthmatic bronchitis (J45.909) Active confirmed Problem Sinusitis (08181205) Sinusitis (J32.9) Active confirmed Problem 730664617 Elevated LFTs (R79.89) Active confirmed Problem 56075031 Essential hypertension (I10) Active confirmed Problem 924278711 Vitamin B12 deficiency (E53.8) Active confirmed Problem 007644775 Elevated cholesterol with elevated triglycerides (E78.2) Active confirmed Problem 377345867 Menopause (Z78.0) Active confirmed Problem 20835820 Dysthymia (F34.1) Active confirmed Problem 77727866 Erosive esophagitis (K22.10) Active confirmed Problem 489840583 Abnormal mammogram of right breast (R92.8) Active confirmed Problem 134761753 Generalized arthritis (M19.90) Active confirmed Problem 974251525 Arthritis of knee (M17.10) Active confirmed Problem 351643040 Osteopenia determined by x-ray (M85.80) Active confirmed Problem 766165978 Mild intermittent asthmatic bronchitis with acute exacerbation (J45.21) Active confirmed Problem 753992311454449 Moderate persistent asthmatic bronchitis with acute exacerbation (J45.41) Active confirmed Problem 311904595 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) [...] Provider Diagnosis Pedro Pablo Baker MD [address] [place], [place] [id number] 04/18/2024 Pedro Pablo Baker Skin yeast infection B37.2 ; Annual physical exam Z00.00 ; Dysthymia F34.1 ; Anxiety F41.9 ; Skin lesion L98.9 ; Frequent urination R35.0 ; Erosive esophagitis K22.10 ; Essential hypertension I10 and Depression screening Z13.31 Pedro Pablo Baker MD [address] [place] [id number] 05/28/2024 Pedro Pablo Baker Sinusitis J32.9 Pedro Pablo Baker MD [address] [place] [id number] 09/19/2024 Pedro Pablo Baker Sciatica M54.30 Pedro Pablo Baker MD [address] [place] [id number] 12/31/2024 Pedro Pablo Baker Asthmatic bronchitis J45.909 Pedro Pablo Baker MD [address] [place] [id number] 01/21/2025 Pedro Pablo Baker Asthmatic bronchitis J45.909 Pedro Pablo Baker MD [address] [place] [id number] 05/27/2024 Pedro Pablo Baker MD [address] [place] [id number] 07/25/2024 Pedro Pablo Baker Assessments Encounter Date [...] Name:Pedro Pablo Wilder ier, 04/15/2025 07:45:00 AM, [address] [place] [address], [address], [phone], Provider Name:Pedro Pablo Wilder ier, 04/21/2025 01:00:00 PM, [address] [place] [address], [place] [address], [place], [place], [phone], Insurance Providers Payer Name Payer Address Payer Phone Subscriber Number Group Number Insured Name Patient Relationship to Insured Coverage Start Date Coverage End Date [employer] [address] [address] [place] [address] [phone] [id number] [phone] Tameka Griggs Self - patient is the insured Medications Administered Medication Instructions Date of Administration Dosage Notes B12 05/16/2016 1 mL B12 11/15/2016 1 mL Medical (General) History Medical History History ICD Code colonoscopy 10/2005 negative; colonoscopy 09/07/15 w/Dr. Gann: Colonoscopy 2020 due 5yrs (2025) Mammo was 01/29 [facility], Dr. Amalia Lopes, 01/30
--- OUTSIDE RECORDS SUMMARY | 2025-03-06 15:02 | XMS_ITS | Clinical Summary ---
Author Organization [facility] Address [address] [place] [address] Phone Care Team Providers Care Electronic Wirer Name Role Phone Pedro Pablo Baker MD [...] Comments OTHER SURGICAL HISTORY 2013 N/A PROCEDURE: SC LARYNGOSCOPY DIRECT OPERATIVE W/BIOPSY Medical History Medical [...] to complete this topic Insurance [facility] [place] [id number] [employer] Care Teams Electronic Wirer Relationship Specialty Start Date End Date Pedro Pablo Baker MD [address] [place] [address] Drive [address] [place] [phone] PCP - General 03/20/11
== END 2025-03-04 11:27 | disposition home or self-care (01) ==
LOC: HO.HOSX 11:26
PROVIDERS: Visit Provider Physician Assistant
DX: M17.11 Unilateral primary osteoarthritis, right knee (principal)
CPT/HCPCS: 20610; 73562; J0665; J1100; J2003

== ENCOUNTER 2025-03-04 13:14 | Outpatient (AMB) | payer OTHER, SELFPAY ==
--- OUTSIDE RECORDS SUMMARY | 2024-02-12 02:15 | XMS_ITS ---
Author Organization Pedro Pablo Baker MD Address [address] [place], [place] [id number] Care Team Providers Care Slab Tripper Name Role Phone Pedro Pablo Baker Primary Care Provider Results Component Value Reference Range Notes Complete Blood Count Auto Di ff Reviewed date:02/13/2024 06:20:10 PM Interpretation: Performing Lab:[facility], [address] [place] [phone] Notes/Report: White Blood Count 7.9 4.8-10.8 X10*3/uL [...] NRBC Abs Auto 0.000 0.0-0.012 X10*3/uL Comprehensive [place]. Panel Fa st Reviewed date:02/13/2024 06:19:05 PM Interpretation: Performing Lab:[address] [phone] Notes/Report: Sodium 135 135-145 mmol/L Potassium 3.8 [...] Panel Reviewed date:02/13/2024 06:17:29 PM Interpretation: Performing Lab:[address] [phone] Notes/Report: Bilirubin Direct 0.4 0.0-0.5 mg/dL Lipid Panel Reviewed date:02/13/2024 06:13:00 PM Interpretation: Performing Lab:[address] [phone] Notes/Report: Triglycerides 168 <150 mg/dL Desirable Triglyceride: [...] B12 Reviewed date:02/13/2024 06:15:55 PM Interpretation: Performing Lab:[address] [phone] Notes/Report: Vitamin B12 1502 200-900 pg/mL NORMAL 200-900 PG/ML INDETERMINATE 160-199 PG/ML DEFICIENT < 160 PG/ML UA ClnCatch+Micro w/rflx Cul t Reviewed date:02/13/2024 06:26:22 PM Interpretation: Performing Lab:[address] [phone] Notes/Report: Urine, Clean Catch Color Urine Yellow Appearance Urine Clear PH 7.0 5.0-9.0 Glucose Urine UA Negative Negative mg/dL Urine Blood Negative Negative Specific [place] - Urine 1.015 1.005-1.025 Urine Protein Negative [...] Complex - as directed Orally Active Nystatin 257862 UNIT/GM 1 application Ex ternally Twice a [...] Date Provider Diagnosis Pedro Pablo Baker MD [address] [place] [address] [address] [place], [place] [id number] 02/12/2024 Pedro Pablo Baker Annual physical exam [...] Name:Pedro Pablo Wilder ier, 04/15/2025 07:45:00 AM, [address] [place] [address], Suite [facility], [place], [place], [phone], Provider Name:Pedro Pablo Wilder ier, 04/21/2025 01:00:00 PM, [address] [place] [address], [place] [address], [place], [place], [phone], Progress Notes * Tameka LIMA SDOB:1960 (64 yo F)Acc No.[id number]:02/12/2024 Progress Note Patient: Tameka MCCALL Provider: Zaid Baker MD :1960 A ge:63 Y S ex:Female Date:02/12/2024 Address:[address] [place] [address], [facility] Subjective: * Chief Complaints: * 1 . [...] BY MOUTH EVERY DAY , Taking Nystatin 220256 UNIT/GM Cream 1 application Externally Twice a [...] - 02/13/2024 01:43 PM) L AB: Comprehensive [place]. Panel Fast (Collection Date & Time - [...] - 02/13/2024 01:43 PM) L AB: Comprehensive [place]. Panel Fast (Collection Date & Time - [...] - 02/13/2024 01:43 PM) L AB: Comprehensive [place]. Panel Fast (Collection Date & Time - [...] - 02/13/2024 01:43 PM) L AB: Comprehensive [place]. Panel Fast (Collection Date & Time - [...] Pending * Provider: Zaid Baker MD Date: 1 04/13/2023 Generated for Wallace Blanchard/Sameer on: 05/05/2024 05:17 PM EST
--- OUTSIDE RECORDS SUMMARY | 2024-04-18 08:30 | XMS_ITS ---
Author Organization Pedro Pablo Baker MD Address [address] [place], [place] [id number] Care Team Providers Care Primary Health Care Nurse Name Role Phone Pedro Pablo Baker Primary Care Provider Allergies No Known Allergies Results Component Value Reference Range Notes UA ClnCatch+Micro w/rflx Cul t Reviewed date:04/18/2024 04:37:16 PM Interpretation: Performing Lab:[facility], [address] [place] [phone] Notes/Report: Urine, Clean Catch Color Urine Yellow Appearance Urine Clear PH 5.5 5.0-9.0 Glucose Urine UA Negative Negative mg/dL Urine Blood Negative Negative Specific Normal - Urine 1.010 1.005-1.025 Urine Protein Negative [...] 4 HOURS NEEDED for 33 Active Nystatin 007641 UNIT/GM 1 application Ex ternally Twice a [...] Date Provider Diagnosis Pedro Pablo Baker MD [address] [place] [address] Drive [address] [place], [place] [phone] 04/18/2024 Pedro Pablo Baker Skin yeast infection [...] EVERY 4 HOURS NEEDED for 33 Nystatin 855572 UNIT/GM 1 application Ex ternally Twice a [...] Name:Pedro Pablo Wilder ier, 04/15/2025 07:45:00 AM, [address] [place] [address], [address], [place], [place], [phone], Provider Name:Pedro Pablo Wilder ier, 04/21/2025 01:00:00 PM, [address] [place] [address], [address], [place], [place], [id number], Progress Notes * Tameka LIMA SDOB:1960 (63 yo F)Acc No.[id number]:04/18/2024 Progress Notes Patient: Tameka MCCALL Provider: Zaid Baker MD :1960 A ge:63 Y S ex:Female Date:04/18/2024 Address:[address] [place] [address], [place], [id number] Subjective: * Chief Complaints: * A nnual [...] BY MOUTH AT BEDTIME NEEDED SPARINGLY Not-Taking/PRNNystatin 394717 UNIT/GM Cream 1 application Externally Twice a [...] reviewed and reconciled with the patientNot-Taking/PRN Nystatin 934637 UNIT/GM Cream 1 application Externally Twice a [...] [id number]-[id number]. * P ast Orders: L ab:Comprehensive [place]. Panel Fast (Order Date - 02/12/2024) (Collection [...] mg/dL Urine Blood Negative Negative - Specific Normal - Urine 1.015 1.005-1.025 - Urine Protein [...] masses palpable. RECTAL EXAM: d one by surgical garment fitter. FEMALE GENITOURINARY: d one by surgical garment fitter. EXTREMITIES: n o clubbing, cyanosis, or edema. [...] S kin yeast infection Refill Nystatin Cream, 265277 UNIT/GM, 1 application, Externally, Twice a day, [...] 04/18/2024 Generated for Wallace crowley/Jackson/Derrickitting on: 1 05/05/2024 05:16 PM EST History and Physical Notes * [...] mass, no lump RECTAL EXAM: done by surgical garment fitter FEMALE GENITOURINARY: done by surgical garment fitter ORAL CAVITY: mucosa moist
--- OUTSIDE RECORDS SUMMARY | 2024-05-27 05:07 | XMS_ITS ---
Author Organization Pedro Pablo Baker MD Address [address] [place], [place] [phone] Care Team Providers Care Coating Machine Helper Name Role Phone Pedro Pablo Baker Primary Care Provider [phone] REASON FOR VISIT REFILL LORAZEPAM Medications Medication SIG (Take, Route, Fr equency, Duration) Notes Start Date End Date Status LORazepam 0.5 MG TAKE ONE TABLET BY M OUTH AT BEDTIME NEEDED SPARINGLY for 30 01/07/2024 Activ e Encounters Encounter Location Date Provider Diagnosis Pedro Pablo Baker MD [address] [facility] [address] [place] [phone] 05/27/2024 Pedro Pablo Baker Plan Of Treatment Medication Medication Name Sig Start Date Stop Date Notes LORazepam 0.5 MG TAKE ONE TABLET BY M OUTH AT BEDTIME NEEDED SPARINGLY for 30 01/07/2024 Next Appt Details Provider Name:Pedro Pablo newton, 04/15/2025 07:45:00 AM, [address], Suite [facility], [place], [place], [phone], Provider Name:Pedro Pablo newton, 04/21/2025 01:00:00 PM, [address] [place] [address], [place] [address], [place], [place], [phone], Progress Notes * Tameka LIMAOB:1960 (63 yo F)Acc No.[id number]:05/27/2024 Patient: Tameka MCCALL :1960 A ge:63 Y S ex:Female Address:[address] [place] [address], [place] [address] * Refills Refill LORazepam Tablet, 0.5 MG, 30 Tablet, TAKE ONE TABLET BY MOUTH AT BEDTIME NEEDED SPARINGLY, 30, Refills=0 * true * Date: Generated for Wallace crowley/Jackson/Angélicasmitting on: 1 05/05/2024 05:17 PM EST
--- OUTSIDE RECORDS SUMMARY | 2024-05-28 08:45 | XMS_ITS ---
Author Organization Pedro Pablo Baker MD Address [address] [place], [place] [phone] Care Team Providers Care Cooker Mechanic Name Role Phone Pedro Pablo Baker Primary Care Provider Allergies No Known Allergies REASON FOR VISIT coughing , ear blocked, green mucus, Video [phone] Medications Medication SIG (Take, Route, Frequency, Duration) [...] needed for 7 days 11/12/2020 Not-Taking Nystatin 546200 UNIT/GM 1 application Ex ternally Twice a [...] Status W/U Status Risk Notes Problem Sinusitis (57986277) Sinusitis (J32.9) Active confirmed Vital Signs Height 64 in 05/28/2024 Weight 164 lbs 05/28/2024 BMI 28.15 kg/m2 05/28/2024 weight is 164 at home BP not taken no temp Encounters Encounter Location Date Provider Diagnosis Pedro Pablo Baker MD [address] [facility] [address] [place] [phone] 05/28/2024 Pedro Pablo Baker Sinusitis J32.9 Assessments [...] Pablo Wilder ier, 04/15/2025 07:45:00 AM, [address] [facility], [address], [place], [place], [phone], Provider Name:Pedro Pablo Wilder ier, 04/21/2025 01:00:00 PM, [address] [facility], [address], [place], [place], [phone], Progress Notes * Tameka LIMA SDOB:1960 (63 yo F)Acc No.[id number]:05/28/2024 Patient: Tameka MCCALL Provider: Zaid Baker MD :1960 A ge:63 Y S ex:Female Date:05/28/2024 Address:[address] [place] [address], [place], [place] Subjective: * Chief Complaints: * C oughing , ear blocked, green mucusVideo [phone] * HPI: S ymptom(s): Telehealth L ocation of provider rendering services: [address] [facility], [address], L ocation of patient: a [...] BY MOUTH EVERY 4 HOURS NEEDED Nystatin 111992 UNIT/GM Cream 1 application Externally Twice a [...] MOUTH EVERY 4 HOURS NEEDED Taking Nystatin 151606 UNIT/GM Cream 1 application Externally Twice a [...] MD Date: 0 05/28/2024 Generated for Wallace crowley/Jackson/eTlalasmitting on: 1 05/05/2024 05:16 PM EST History [...]
--- OUTSIDE RECORDS SUMMARY | 2024-07-18 11:15 | XMS_ITS ---
Author Organization Pedro Pablo Baker MD Address [address] [place] [phone] Care Team Providers Care Personal Care Assistant Name Role Phone Pedro Pablo Baker Primary Care Provider Allergies No Known Allergies REASON FOR VISIT 3 MO F/U Encounters Encounter Location Date Provider Diagnosis Pedro Pablo Baker MD [address] [facility] [address] [place] [phone] 07/18/2024 Pedro Pablo Baker Plan Of Treatment Next Appt Details Provider Name:Pedro Pablo newton, 04/15/2025 07:45:00 AM, [address] [place] [address], [address], [phone], Provider Name:Pedro Pablo newton, 04/21/2025 01:00:00 PM, [address] [place] [address], [address], [phone], Progress Notes * Tameka LIMA SDOB:1960 (64 yo F)Acc No.[id number]:07/18/2024 Progress Notes Patient: Tameka MCCALL Provider: Zaid Baker MD :1960 A ge:63 Y S ex:Female Date:07/18/2024 [address], [place], [place] Subjective: * Chief Complaints: * 1 . 3 MO F/U. * ROS: G eneral/Constitutional: Denies C hills. D enies F atigue. D enies F ever. D enies H eadache. E NT: Denies S ore throat. R espiratory: Denies C ough. D enies S hortness of breath at rest. D enies S hortness of breath with exertion. G astrointestinal: Denies D iarrhea. D enies N ausea. * Medical History: c olonoscopy 10/2005 negative; colonoscopy 09/07/15 w/Dr. Gann: Colonoscopy 2020 due 5yrs (2025), Mammo was 01/29, DETAIL SERGEANT, Dr. Amalia Lopes, 01/30. * Allergies: N .K.D.A. Objective: * Vitals: Assessment: Plan: * Treatment: * * The named appointment provid er may or may not be the originator of this progress note, and it is not deemed complete until electronically signed by the appointment provider. Sign off status: Pending * Provider: Zaid Baker MD Date: 0 07/18/2024 Generated for Wallace crowley/Jackson/Sameer on: 05/05/2024 05:18 PM EST
--- OUTSIDE RECORDS SUMMARY | 2024-07-25 06:21 | XMS_ITS ---
Author Organization Pedro Pablo Baker MD Address [address] [place], [place] [phone] Care Team Providers Care Curator Of Education Name Role Phone Pedro Pablo Baker Primary Care Provider REASON FOR VISIT REFILL LORAZAPAM Medications Medication SIG (Take, Route, Fr equency, Duration) Notes Start Date End Date Status LORazepam 0.5 MG TAKE ONE TABLET BY M OUTH AT BEDTIME NEEDED SPARINGLY for 30 07/25/2024 Activ e Encounters Encounter Location Date Provider Diagnosis Pedro Pablo Baker MD [address] [facility] [address] [place], [place] [phone] 07/25/2024 Pedro Pablo Baker Plan Of Treatment Medication Medication Name Sig Start Date Stop Date Notes LORazepam 0.5 MG TAKE ONE TABLET BY M OUTH AT BEDTIME NEEDED SPARINGLY for 30 07/25/2024 Next Appt Details Provider Name:Pedro Pablo newton, 04/15/2025 07:45:00 AM, [address] [facility], Suite [facility], [place], [place], [phone], Provider Name:Pedro Pablo newton, 04/21/2025 01:00:00 PM, [address] [place] [address], Suite [facility], [place], [place], [phone], Progress Notes * Tameka LIMA SDOB:1960 (63 yo F)Acc No.[id number]:07/25/2024 Patient: Tameka MCCALL :1960 A ge:63 Y S ex:Female Address:[address] [place] [address], [place] [address] * Refills Refill LORazepam Tablet, 0.5 MG, 30 Tablet, TAKE ONE TABLET BY MOUTH AT BEDTIME NEEDED SPARINGLY, 30, Refills=0 * true * Date: Generated for Wallace crowley/Jackson/Angélicasmitting on: 1 05/05/2024 05:17 PM EST
--- OUTSIDE RECORDS SUMMARY | 2024-09-19 05:15 | XMS_ITS ---
Author Organization Pedro Pablo Baker MD Address [address] [place], [place] [id number] Care Team Providers Care Electrical Systems Drafter Name Role Phone Pedro Pablo Baker Primary Care Provider Allergies No Known Allergies Reason For Referral Reason [facility] Diagnosis 1 Sciatica (M54.30) Referral Organization Pedro Pablo Baker MD Referring Provider First Name Pedro Pablo Referring Provider Last Name Olivia Referring Provider Speciality Internal M edicine Referred Provider [facility] Referred Provider Specialty Pain Medicin e General Notes Essence Paul 10/21/2024 11:30:33 AM >REQUEST MADE TODAY FOR OFFICE NOTE, Essence Paul 10/21/2024 11:47:55 AM >OFFICE NOTE HAS BEEN RECD Referral Priority Routine Referral Appointment Date 10/14/2024 REASON FOR VISIT lower back pain wants MRI Medications Medication SIG (Take, Route, Frequency, Duration) Notes Start Date End Date Status predniSONE 10 MG 1 tablet with food o r milk Orally 4 tabs for 3 days,3tabs for 3 days, 2 tabs for 3 days, and 1 tab for 3 days for 14 days 09/14/2020 Not-Taking Valtrex 500 MG 1 tablet Orally ever y 12 hrs for 3 days 05/19/2015 Not-Taking Diprolene AF 0.05 % 1 application to affected area Externally Once a day for 30 days 05/21/2013 Not-Takin g LORazepam 0.5 MG TAKE ONE TABLET BY M OUTH AT BEDTIME NEEDED SPARINGLY for 30 07/25/2024 Active Amoxicillin-Pot Clavulanate 875-125 MG 1 tablet Orally every 12 hrs for 10 day(s) 09/14/2020 Not-Taking Sertraline HCl 100 MG 1 tablet Orally On ce a day for 90 days 04/18/2024 Active Diflucan 100 MG 1 tablet Orally once a day for 10 day(s) 09/01/2023 Not-Taking Lidocaine 5 % APPLY 1 PATCH EXTERNALLY, REMOVE AFTER 12 HOURS, USE ONCE DAILY FOR 14 DAYS for 15 Not-Taking HYDROcodone-Acetaminophe n 5-325 MG 1 tablet as needed Orally every 6 hrs as needed for 7 days 11/12/2020 Not-Taking Irbesartan-hydroCHLOROth iazide 300-12.5 MG TAKE ONE TABLET BY MOUTH EVERY DAY for 90 Active Albuterol Sulfate HFA 108 (90 Base) MCG/ACT INHALE 1 PUFF BY MOUTH EVERY 4 HOURS NEEDED for 33 Active Nystatin 497886 UNIT/GM 1 application Ex ternally Twice a day for 10 days 09/01/2023 Active Super B-50 B Complex - as directed Orally Active Vitamin D (Cholecalciferol) 1000 UNIT 2 tablets Orally Once a day for 30 day(s) 05/16/2016 Active Problems Problem Type SNOMED Code ICD Code Onset Dates Problem Status W/U Status Risk Notes Problem Sciatica (50389049) Sciatica (M54.30) Active confirmed Vital Signs Blood pressure systolic 122 mm Hg 09/20/19 25 Blood pressure diastolic 78 mm Hg 025 Height 64 in 09/19/2024 Weight 166 lbs 09/19/2024 BMI 28.49 kg/m2 09/19/2024 Encounters Encounter Location Date Provider Diagnosis Pedro Pablo Baker MD [address] [place] [address] Drive [address] [place] [id number] 09/19/2024 Pedro Pablo Baker Sciatica M54.30 Assessments Encounter Date Diagnosis (ICD Code) Assessment Notes Treatment Notes Treatment Clinical Notes Section Notes 09/19/2024 Sciatica (ICD-10 - M54.30) referral to spine and sport/THE REFERRAL TO [facility] HAS BEEN FAXED Plan Of Treatment Medication Medication Name Sig Start Date Stop Date Notes LORazepam 0.5 MG TAKE ONE TABLET BY M OUTH AT BEDTIME NEEDED SPARINGLY for 30 07/25/2024 Treatment Notes Assessment Notes Sciatica referral to spine an d sport/THE REFERRAL TO [facility] HAS BEEN FAXED Referrals Referral Date Details 09/19/2024 09/19/2024, [facility] Next Appt Details Provider Name:Pedro Pablo Manuel Tina ier, 04/15/2025 07:45:00 AM, [address], [address], [place], [place], [phone], Provider Name:Pedro Pablo Jackson Tina ier, 04/21/2025 01:00:00 PM, [address], [address], [place], [place], [phone], Progress Notes * Tameka LIMA SDOB:1960 (64 yo F)Acc No.[id number]:09/19/2024 Progress Notes Patient: Tameka MCCALL Provider: Zaid Baker MD :1960 A ge:64 Y S ex:Female Date:09/19/2024 Address:[address] [place] [address], [place], [place] Subjective: * Chief Complaints: * l ower back pain wants MRI * HPI: S ymptom(s): patient is a 64 yo female here with complaint of having back pain radiating down to toes and has been stretching. has 4 months. * ROS: G eneral/Constitutional: Denies C hills. D enies F atigue. D enies F ever. D enies H eadache. E NT: Denies S ore throat. R espiratory: Denies C ough. D enies S hortness of breath at rest. D enies S hortness of breath with exertion. G astrointestinal: Denies D iarrhea. D enies N ausea. M usculoskeletal: Admits S ciatica. * Medical History: * Surgical History: * Hospitalization/Major Diagno stic Procedure: * Medications: T akingSuper B-50 B Complex - Capsule as directed Orally Vitamin D (Cholecalciferol) 1000 UNIT Tablet 2 tablets Orally Once a day Irbesartan-hydroCHLOROthiazide 300- 12.5 MG Tablet TAKE ONE TABLET BY MOUTH EVERY DAY Albuterol Sulfate HFA 108 (90 Base) MCG/ACT Aerosol Solution INHALE 1 PUFF BY MOUTH EVERY 4 HOURS NEEDED Nystatin 512015 UNIT/GM Cream 1 application Externally Twice a day Sertraline HCl 100 MG Tablet 1 tablet Orally Once a day LORazepam 0.5 MG Tablet TAKE ONE TABLET BY MOUTH AT BEDTIME NEEDED SPARINGLY Taking Super B-50 B Complex - Capsule as directed Orally Taking Vitamin D (Cholecalciferol) 1000 UNIT Tablet 2 tablets Orally Once a day Taking Irbesartan-hydroCHLOROthiazide 300-12.5 MG Tablet TAKE ONE TABLET BY MOUTH EVERY DAY Taking Albuterol Sulfate HFA 108 (90 Base) MCG/ACT Aerosol Solution INHALE 1 PUFF BY MOUTH EVERY 4 HOURS NEEDED Taking Nystatin 320892 UNIT/GM Cream 1 application Externally Twice a [...] to affected area Externally Once a day Not-Taking/PRN Diflucan 100 MG Tablet 1 tablet Orally [...] to affected area Externally Once a day DiscontinuedSertraline HCl 50 MG Tablet TAKE ONE TABLET BY MOUTH EVERY DAY Omeprazole 20 MG Capsule Delayed Release TAKE ONE CAPSULE BY MOUTH EVERY DAY Amoxicillin-Pot Clavulanate 875-125 MG Tablet 1 tablet Orally every 12 hrs Medication List reviewed and reconciled with the patientDiscontinued Sertraline HCl 50 MG Tablet TAKE ONE TABLET BY MOUTH EVERY DAY Discontinued Omeprazole 20 MG Capsule Delayed Release TAKE ONE CAPSULE BY MOUTH EVERY DAY Discontinued Amoxicillin-Pot Clavulanate 875-125 MG Tablet 1 tablet Orally every 12 hrs Medication List reviewed and reconciled with the patient * Allergies: N .K.D.A.yes[Allergies Verified] Objective: * Vitals: H t: 64, Wt: 166, BMI:28.49, BP:122/78, Wt-k.3. * Examination: G eneral Examination: GENERAL APPEARANCE: a lert, well hydrated, in no distress.? HEAD: n ormocephalic. SKIN: g ood turgor. NEUROLOGIC: a bnormal straight leg raising is positive. normal strength and dtr's. Assessment: * Assessment: 1. S ciatica - M54.30 (Primary) Plan: * Treatment: 2. O thers Refill LORazepam Tablet, 0.5 MG, TAKE ONE TABLET BY MOUTH AT BEDTIME NEEDED SPARINGLY, 30, 30 Tablet, Refills 0. * Procedure Codes: * * Sign off status: Completed true * Provider: Zaid Baker MD Date: 0 09/19/2024 Generated for Wallace crowley/Jackson/Sameer on: 1 05/05/2024 05:16 PM EST History and Physical Notes * HPI (History of Present Illness) Category Sub-Category Detail Notes Category Not es Symptom(s) patient is a 64 yo female here with complaint of having back pain radiating down to toes and has been stretching. has 4 months. Examination Category Sub-Category Detail Notes Category Not es General Examination GENERAL APPEARANCE: alert, w ell hydrated, in no distress HEAD: normocephalic NEUROLOGIC: abnormal straight le g raising is positive. normal strength and dtr's SKIN: good turgor Consultation Request Notes Referral Date Referring Provider Referred Provider Not es 09/19/2024 Pedro Pablo Baker, [facility]
--- OUTSIDE RECORDS SUMMARY | 2024-12-31 10:45 | XMS_ITS ---
Author Organization Pedro Pablo Baker MD Address [address] [place], [place] [id number] Care Team Providers Care Divinity Teacher Name Role Phone Pedro Pablo Baker Primary Care Provider [phone] Allergies No Known Allergies REASON FOR VISIT Bronchitis x 6 days Covid negative this afternoon, Video [phone] Medications Medication SIG (Take, Route, Frequency, Duration) [...] 4 HOURS NEEDED for 33 Active Nystatin 470747 UNIT/GM 1 application Ex ternally Twice a [...] W/U Status Risk Notes Problem Asthmatic bronchitis (474064611) Asthmatic bronchitis (J45.909) Active confirmed Vital Signs Height 64 in 12/31/2024 Weight 160 lbs 12/31/2024 BMI 27.46 kg/m2 12/31/2024 weight is 160 at home BP not taken no temp Encounters Encounter Location Date Provider Diagnosis Pedro Pablo Baker MD [address] [place] [address] Drive [address] [place], [place] [phone] 12/31/2024 Pedro Pablo Baker Asthmatic bronchitis J45.909 [...] Pablo Jackson Tina ier, 04/15/2025 07:45:00 AM, [address] [place] [address], [address], [place], [place], [phone], Provider Name:Pedro Pablo Jackson Tina ier, 04/21/2025 01:00:00 PM, [address] [place] [address], [address], [place], [place], [phone], Progress Notes * Tameka LMIA SDOB:1960 (64 yo F)Acc No.[id number]:12/31/2024 Patient: Tameka MCCALL Provider: Zaid Baker MD :1960 A ge:64 Y S ex:Female Date:12/31/2024 Address:[address] [place] [address], [place], [place] Subjective: * Chief Complaints: * B ronchitis x 6 days Covid negative this afternoonVideo [phone] * HPI: S ymptom(s): green phlegm. and coughing. wheezing. needs inhaler. using it with some help. Telehealth L ocation of provider rendering services: 1 0 [facility], [address], L ocation of patient: [...] BY MOUTH EVERY 4 HOURS NEEDED Nystatin 725431 UNIT/GM Cream 1 application Externally Twice a [...] MOUTH EVERY 4 HOURS NEEDED Taking Nystatin 918925 UNIT/GM Cream 1 application Externally Twice a [...] Baker MD Date: 1 Generated for Wallace crowley/Jackson/Angélicasmitting on: 05/05/2024 05:16 PM EST History and Physical [...]
--- OUTSIDE RECORDS SUMMARY | 2025-01-21 04:15 | XMS_ITS ---
Author Organization Pedro Pablo Baker MD Address [address] [place], [place] [id number] Care Team Providers Care Donkey Engine Firer/Fireman Name Role Phone Pedro Pablo Baker Primary Care Provider [phone] Allergies No Known Allergies REASON FOR VISIT Still coughing, Video [phone] Medications Medication SIG (Take, Route, Frequency, Duration) [...] 4 HOURS NEEDED for 33 Active Nystatin 520468 UNIT/GM 1 application Ex ternally Twice a day for 10 days 09/01/2023 Active Vital Signs Height 64 in 01/21/2025 weight at home is 164 no BP no temp Encounters Encounter Location Date Provider Diagnosis Pedro Pablo Baker MD [address] [place] [address] [place] [id number] 01/21/2025 Pedro Pablo Baker Asthmatic bronchitis J45.909 [...] Provider Name:Pedro Pablo newton, 04/15/2025 07:45:00 AM, [address] [place] [address], Suite [facility], [place], [place], [phone], Provider Name:Pedro Pablo newton, 04/21/2025 01:00:00 PM, [address] [place] [address], Suite [facility], [place], [place], [phone], Progress Notes * Tameka LIMA SDOB:1960 (64 yo F)Acc No.[id number]:01/21/2025 Patient: Tameka MCCALL Provider: Zaid Baker MD :1960 A ge:64 Y S ex:Female Date:01/21/2025 Address:[address] [place] [address], [facility] Subjective: * Chief Complaints: * S till coughingVideo [phone] * HPI: S ymptom(s): Telehealth L ocation [...] BY MOUTH EVERY 4 HOURS NEEDED Nystatin 898120 UNIT/GM Cream 1 application Externally Twice a [...] MOUTH EVERY 4 HOURS NEEDED Taking Nystatin 307403 UNIT/GM Cream 1 application Externally Twice a [...] Baker MD Date: 03/23/2024 Generated for Wallace crowley/Jackson/Angélicasmjani on: 05/05/2024 05:18 PM EST History and Physical Notes * HPI (History of Present Illness) Category Sub-Category Detail Notes Category Not es Symptom(s) [facility] [address], [address] [...]
--- NOTE | 2025-03-04 13:26 | MHC.OFFVIS ---
Intake Visit Reasons: OV - right knee OA, last inj 11/14/22 Intake Note: Tameka is a 64 year old female who presents today for a follow up of her right knee osteoarthritis, last injection 11/14/22. Patient reports her shoulder feels that it popped out but the patient said it did not. She has a CD in her car that she can bring in on another date to follow up on her shoulder. Today she is being seen for her right knee, she states she also feels that when she ambulates her knee may give out. Sfdc Technical Architect Required: No Allergies No Known Allergies (No Known Allergies*) Allergy (Unverified 03/04/25 13:32) Medication List - Last Reconciled 03/04/25 by Afua Paul RN albuterol sulfate 90 mcg/actuation (Ventolin HFA) 2 puffs inhalation Q4-6H PRN ascorbic acid (vitamin C) (Vitamin C) 500 mg PO DAILY atorvastatin 10 mg PO BEDTIME [Avalide 1 tab PO DAILY] irbesartan-hydrochlorothiazide 300-12.5 mg 1 tab PO DAILY lorazepam 0.5 mg PO DAILY PRN omeprazole 20 mg PO DAILY sertraline (Zoloft) 25 mg PO DAILY sertraline 50 mg PO DAILY vitamin B complex 1 tab PO DAILY HPI HPI OV - right knee OA, last inj 11/14/22: Details: The patient is a 64-year-old female who presents to the office today for follow-up regarding right knee osteoarthritis. Last cortisone injection was 11/14/2022 which gave her relief. Patient states that she was exercising and felt as though her knee moved out of place . She reports ever since then she has not experienced much pain but has noticed that her knee wants to give out and demonstrates a motion of knee giving out medially. [facility] Medical History Anxiety Asthma Depression Elevated cholesterol HTN (hypertension) Surgical History H/O colonoscopy History of vocal cord polypectomy Social History Household Members: Spouse Patient Tobacco Use Status: Never used Tobacco Second Hand Smoke Exposure: No Substance Use Type: Marijuana Current occupational status: retired Current occupation: rt handed Review of Systems Const All systems reviewed & are unremarkable except as noted in HPI and below Physical Exam Const General: cooperative, healthy appearing and no acute distress Resp Effort & Inspection: normal respiratory effort and able to speak in complete sentences Extrem Other: Right knee: Normal to inspection. No ecchymosis, erythema, or joint effusion. No tenderness to palpation along the medial or lateral joint lines. Full knee extension and flexion. No laxity with varus or valgus stress. Negative Guanako's. Negative anterior drawer. NVI. Psych Appearance: grossly normal Mental Status: mental status grossly normal Attitude: cooperative Office Procedures AMB Joint Injection/Aspiration Joint Injection/Aspiration Primary Site: Right Knee Prep: site was prepped using aseptic technique, ethochloride spray was applied and injection warnings given Injected: 40 mg of, Decadron, with 3 mL of, 1% plain Lidocaine, 0.25% Bupivacaine and in the joint Approach Used: anterolateral Procedure: The patient tolerated the procedure well, but had some pain with the injection and there was some relief with the local anesthesia Coding 08306 - Large joint Procedure code (CPT) selection complete Assessment & Plan Assessment & Plan (1) Osteoarthritis of right knee: Code(s): M17.11 - Unilateral primary osteoarthritis, right knee Category: Medical Plan The patient was offered a cortisone injection in right knee. The patient was explained the risks, benefits, and alternatives to receiving this injection. After receiving consent for the injection, the patient had the procedure done while in the office today. The patient tolerated the procedure well with no complications. The risks, benefits, and alternatives to a corticosteroid injection were discussed with the patient, including the potential benefits of decreased inflammation and pain, improved function, and diagnostic value. Risks were reviewed, including post-injection flare, skin or fat atrophy, transient facial flushing, temporary elevation in blood glucose, bruising, and rare but serious complications such as infection, tendon weakening or rupture, and cartilage damage with repeated injections. Procedure-related discomfort and possible vasovagal symptoms were also explained. Alternatives were reviewed, including NSAIDs, physical therapy, activity modification, bracing, ice/heat, weight management, hyaluronic acid injections when appropriate, PRP or other orthobiologics, oral steroids, surgery depending on pathology, and observation. The patient verbalized understanding and elected to proceed. After receiving consent for the injection, the patient had the procedure done while in the office today. The patient tolerated the procedure well with no complications. Follow-up will be PRN, or sooner if needed X-rays of the right knee which were obtained while in the office today and were reviewed by me, Deborah Melendez PA-C, revealed arthritic changes. Orders: Orders XR knee RT 3V Today M25.569 - Pain in unspecified knee Coding Level of Care Code Est Pt Level 3 (77022) Add On Problem Visit Only Diagnoses Osteoarthritis of right knee M17.11 CPT Codes Coding - 19333 Large joint: 37760 - Large joint ([id number])
--- OUTSIDE RECORDS SUMMARY | 2025-03-04 17:17 | XMS_ITS | Patient Health Record ---
Author Organization [facility] Address [address] [place] [address] Care Team Providers Care Quality Assurance Qa Lab Analyst Name Role Phone Pedro Pablo Baker MD Primary Care Provider MachelleMerly Bishop Unavailable [phone] Reason For Referral No Information Medications Medication [...] W/U Status Risk Notes Problem Essential hypertension (07361941) Essential (primary) hypertension (I10) Active confirmed Problem Uncomplicated asthma (disorder) (637133359) Unspecified asthma, uncomplicated (J45.909) Active confirmed Problem Gastro-esophageal reflux disease with esophagitis (103604833) Gastro-esophageal reflux disease with esophagitis (K21.0) Active confirmed Problem Menopause (868595385) Menopausal and female climacteric states (N95.1) Active confirmed Plan Of Treatment Pending Test Test Name Order Date THIN PREP,HPV,ABBE IF HPV+/CYT-,CT/GC(>2 9YR)(SCRN) 01/02/2018 MM Digital Mammo Screening 01/02/2018 Insurance Providers Payer Name Payer Address Payer Phone Subscriber Number Group Number Insured Name Patient Relationship to Insured Coverage Start Date Coverage End Date [employer] [address] [place] [address] [phone] [id number] LILLIAM LIMA Spouse - patient is the spouse of the insured Medical (General) History Surgical History Surgery Date(Month/Year) larynxoscopy (remove polpys from vocal c ords) (benign) 2011
--- OUTSIDE RECORDS SUMMARY | 2025-03-04 17:17 | XMS_ITS | Patient Health Record ---
Author Organization Pedro Pablo Baker MD Address [address] [place], [place] [address] Care Team Providers Care Assembly Member Name Role Phone Pedro Pablo Baker Primary Care Provider Allergies No Known Allergies Results Component Value Reference Range Notes UA ClnCatch+Micro w/rflx Cul t Reviewed date:04/18/2024 04:37:16 PM Interpretation: Performing Lab:[facility], [address] [place] [phone] Notes/Report: Urine, Clean Catch Color Urine Yellow Appearance Urine Clear PH 5.5 5.0-9.0 Glucose Urine UA Negative Negative mg/dL Urine Blood Negative Negative Specific Shelton - Urine 1.010 1.005-1.025 Urine Protein Negative Neg-Trace mg/dL Urine Ketones Negative Negative mg/dL Nitrite Urine Negative Negative Leukocyte Esterase Urine Large (3+) Negative RBC Urine 0-2 0-2 /HPF WBC Urine 21-50 0-5 /HPF Squamous Epithelial Cell Urine 0-2 0-2 /HPF Calcium Oxalate Crystals Urine Present Bacteria Urine None Seen None Seen Hyaline Casts Urine 0-2 0-2 /LPF Urine Culture Reviewed date:04/19/2024 12:35:14 PM Interpretation: Performing Lab:[facility], [address] [place] [phone] Notes/Report: Urine Culture Report Result Urine Culture < 10,000 cfu/ml Reason For Referral Reason SCIATICA Diagnosis 1 Sciatica (M54.30) Referral Organization Pedro Pablo Baker MD Referring Provider First Name Pedro Pablo Referring Provider Last Name Olivia Referring Provider Speciality Internal M edicine Referred Provider [facility] Referred Provider Specialty Pain Medicin e General Notes Essence Paul 10/21/2024 11:30:33 AM >REQUEST MADE TODAY FOR OFFICE NOTE, Essence Paul 10/21/2024 11:47:55 AM >OFFICE NOTE HAS BEEN RECD Referral Priority Routine Referral Appointment Date 10/14/2024 Medications Medication SIG (Take, Route, Frequency, Duration) Notes Start Date End Date Status Diflucan 100 MG 1 tablet Orally once a day for 10 day(s) 09/01/2023 Not-Taking Super B-50 B Complex - as directed Orally Active Lidocaine 5 % APPLY 1 PATCH EXTERNALLY, REMOVE AFTER 12 HOURS, USE ONCE DAILY FOR 14 DAYS for 15 Not-Taking Vitamin D (Cholecalciferol) 1000 UNIT 2 tablets Orally Once a day for 30 day(s) 05/16/2016 Active HYDROcodone-Acetaminophe n 5-325 MG 1 tablet as needed Orally every 6 hrs as needed for 7 days 11/12/2020 Not-Taking Albuterol Sulfate HFA 108 (90 Base) MCG/ACT INHALE 1 PUFF BY MOUTH EVERY 4 HOURS NEEDED for 33 Active Amoxicillin-Pot Clavulanate 875-125 MG 1 tablet Orally every 12 hrs for 10 day(s) 09/14/2020 Not-Taking Nystatin 199241 UNIT/GM 1 application Ex ternally Twice a day for 10 days 09/01/2023 Active Sertraline HCl 100 MG 1 tablet Orally On ce a day for 90 days 04/18/2024 Active Valtrex 500 MG 1 tablet Orally ever y 12 hrs for 3 days 05/19/2015 Not-Taking Irbesartan-hydroCHLOROth iazide 300-12.5 MG TAKE ONE TABLET BY MOUTH EVERY DAY for 90 Active Diprolene AF 0.05 % 1 application to affected area Externally Once a day for 30 days 05/21/2013 Not-Takin g LORazepam 0.5 MG TAKE ONE TABLET BY M OUTH ONCE DAILY AT BEDTIME NEEDED SPARINGLY for 30 12/02/2024 Active Albuterol Sulfate HFA 108 (90 Base) MCG/ACT 1 puff as needed Inhalation every 4 hrs for 30 days 12/31/2024 Active predniSONE 10 MG 1 tablet with food o r milk Orally 4 tabs for 3 days,3tabs for 3 days, 2 tabs for 3 days, and 1 tab for 3 days for 14 days 09/14/2020 Active Immunizations Vaccine Route Administration Date Status Comme nts Flu Vaccine IM Intramuscular 12/06/2011 Administered Flu Vaccine IM Intramuscular 12/24/2012 Administered Vitamin B12 IM Intramuscular 01/18/2013 Administered Vitamin B12 IM Intramuscular 02/28/2013 Administered Flu Vaccine IM Intramuscular 02/06/2014 Administered Fluarix Quadrivalent IM Intramuscular 01/12/2015 Administe red Fluarix Quadrivalent IM Intramuscular 05/03/2016 Administe red Fluarix Quadrivalent IM Intramuscular 05/16/2017 Administe red TDaP IM Intramuscular 12/14/2017 Administered pt was given the vaccine at [facility] in [place]. Fluarix Quadrivalent IM Intramuscular 12/26/2017 Administe red Fluarix Quadrivalent IM Intramuscular 12/25/2018 Administe red PPSV23 (Pnemovax) IM Intramuscular 06/04/2019 Administered Fluarix Quadrivalent IM Intramuscular 12/19/2019 Administe red SARS-COV-2 Moderna Unknown 07/08/2020 Administered SARS-COV-2 Moderna Unknown 08/05/2020 Administered PPSV23 (Pnemovax) Unknown 06/05/2018 Refused Tetanus Unknown 12/14/2017 Pending Social History Tobacco Use: Social History Observation [...] Never (0 point) Points 2 Interpretation Negative Problems Problem Type SNOMED Code ICD Code Onset Dates Problem Status W/U Status Risk Notes Problem Sciatica (85827488) Sciatica (M54.30) Active confirmed Problem 778227116 Tubular adenoma (D36.9) Active confirmed Problem 71676629 Anxiety (F41.9) Active confirmed Problem Asthmatic bronchitis (401635866) Asthmatic bronchitis (J45.909) Active confirmed Problem Sinusitis (97568277) Sinusitis (J32.9) Active confirmed Problem 373971763 Elevated LFTs (R79.89) Active confirmed Problem 77871843 Essential hypertension (I10) Active confirmed Problem 506828443 Vitamin B12 deficiency (E53.8) Active confirmed Problem 804077842 Elevated cholesterol with elevated triglycerides (E78.2) Active confirmed Problem 735413922 Menopause (Z78.0) Active confirmed Problem 74464954 Dysthymia (F34.1) Active confirmed Problem 56272863 Erosive esophagitis (K22.10) Active confirmed Problem 418748468 Abnormal mammogram of right breast (R92.8) Active confirmed Problem 050631828 Generalized arthritis (M19.90) Active confirmed Problem 230448875 Arthritis of knee (M17.10) Active confirmed Problem 595819591 Osteopenia determined by x-ray (M85.80) Active confirmed Problem 984648629 Mild intermittent asthmatic bronchitis with acute exacerbation (J45.21) Active confirmed Problem 039614343101132 Moderate persistent asthmatic bronchitis with acute exacerbation (J45.41) Active confirmed Problem 456050941 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) Active confirmed Vital Signs Blood pressure diastolic 78 mm Hg 09/19/2024 Height 64 in 01/21/2025 weight at home is 164 no BP no temp Blood pressure systolic 122 mm Hg 09/19/2024 Weight 160 lbs 12/31/2024 weight is 160 a t home BP not taken no temp BMI 27.46 kg/m2 12/31/2024 weight is 160 a t home BP not taken no temp Encounters Encounter Location Date Provider Diagnosis Pedro Pablo Baker MD [address] [place], [place] [id number] 04/18/2024 Pedro Pablo Baker Skin yeast infection B37.2 ; Annual physical exam Z00.00 ; Dysthymia F34.1 ; Anxiety F41.9 ; Skin lesion L98.9 ; Frequent urination R35.0 ; Erosive esophagitis K22.10 ; Essential hypertension I10 and Depression screening Z13.31 Pedro Pablo Baker MD [address] [place] [id number] 05/28/2024 Pedro Pablo Baker Sinusitis J32.9 Pedro Pablo Baker MD [address] [place] [id number] 09/19/2024 Pedro Pablo Baker Sciatica M54.30 Pedro Pablo Baker MD [address] [place] [id number] 12/31/2024 Pedro Pablo Baker Asthmatic bronchitis J45.909 Pedro Pablo Baker MD [address] [place] [id number] 01/21/2025 Pedro Pablo Baker Asthmatic bronchitis J45.909 Pedro Pablo Baker MD [address] [place] [id number] 05/27/2024 Pedro Pablo Baker MD [address] [place] [id number] 07/25/2024 Pedro Pablo Baker Assessments Encounter Date Diagnosis (ICD Code) Assessment Notes Treatment Notes Treatment Clinical Notes Section Notes 04/18/2024 Skin yeast infection (ICD-10 - B37.2) 04/18/2024 Annual physical exam (ICD-10 - Z00.00) labs reviewed and discussed with patient 05/28/2024 Sinusitis (ICD-10 - J32.9) patient verbalized understanding of medicatio and directions for use 09/19/2024 Sciatica (ICD-10 - M54.30) referral to spine and sport/THE REFERRAL TO [facility] HAS BEEN FAXED 12/31/2024 Asthmatic bronchitis (ICD-10 - J45.909) 01/21/2025 Asthmatic bronchitis (ICD-10 - J45.909) will continue current regiment and will continue to monitor 04/18/2024 Dysthymia (ICD-10 - F34.1) will increase [...] - Z13.31) negative screen Plan Of Treatment Pending Test Test Name Order Date Electrocardiogram (EKG) 04/23/2015 GI BIOPSY 09/07/2015 MAMMOGRAM DIGITAL BILATERAL SCREEN 12/15 MM screening mammo BI 02/05/2021 XR DEXA axial skeleton 02/05/2021 XR DEXA axial skeleton 06/22/2020 Next Appt Details Provider Name:Pedro Pablo Wilder ier, 04/15/2025 07:45:00 AM, [address] [place] [address], [address], [phone], Provider Name:Pedro Pablo Wilder ier, 04/21/2025 01:00:00 PM, [address] [place] [address], [place] [address], [place], [place], [id number], Insurance Providers Payer Name Payer Address Payer Phone Subscriber Number Group Number Insured Name Patient Relationship to Insured Coverage Start Date Coverage End Date [place] [address] [address] [place] [address] [id number] Tameka Griggs Self - patient is the insured Medications Administered Medication Instructions Date of Administration Dosage Notes B12 05/16/2016 1 mL B12 11/15/2016 1 mL Medical (General) History Medical History History ICD Code colonoscopy 10/2005 negative; colonoscopy 09/07/15 w/Dr. Gann: Colonoscopy 2020 due 5yrs (2025) Mammo was 01/29 [employer], Dr. Amalia Lopes, 01/30
--- OUTSIDE RECORDS SUMMARY | 2025-03-04 17:17 | XMS_ITS | Patient Health Record ---
Author Organization [facility] Address [address] [place] [address] Care Team Providers Care Trim Mechanic Name Role Phone Pedro Pablo Baker MD Primary Care Provider Felipe Syed Unavailable [phone] Allergies No Known Allergies Reason For Referral No Information Medications Medication SIG (Take, Route, Frequency, Duration) Notes Start Date End Date Status Estroven Active Vitamin B Complex - Tablet Orally Active albuterol prn Active Vitamin D Active Atorvastatin Calcium 10 MG Tablet 1 tablet Orally Once a day; Duration: 30 day(s) Active Omeprazole Active Ativan Not-Taking /PRN Avalide Active Zoloft 25 MG Tablet 1 tablet Orally Once a day; Duration: 30 day(s) Active Immunizations Vaccine Route Administration Date Status Comme nts Influenza Unknown 12/18/2017 Administered Social History Tobacco Use: Social History Observation Description Date Details (start date - stop date) Never Smoker NA - NA Social History Drugs/Alcohol: Social Info Question Answer Notes Alcohol Screen Did you have a drink containing alcohol in the past year? Yes How often did you have a drink containing [...] Never (0 point) Points 3 Interpretation Positive Tobacco Use: Social Info Question Answer Notes Tobacco Use/Smoking Patient is a nonsmoker Additional Details Category Social Info Options Details Miscellaneous: Marital status: Occupation: [employer] Section Notes: Nonsmoker; 6-10 beers/wine Q D---occasional liquor Nonsmoker; 6-10 beers/wine Q D---occasional liquor----she cut down to 2 beers QD in 08/2017 and is smoking pot as well Nonsmoker; 6-10 beers/wine Q D---occasional liquor----she cut down to 3 beers or 3 glasses of wine QD in 08/2017 and is smoking pot or uses edibles as well Problems Problem Type SNOMED Code ICD Code Onset Dates Problem Status W/U Status Risk Notes Problem Screening for malignant neoplasm of colon (277879369) Encounter for screening for malignant neoplasm of colon (Z12.11) Active confirmed Problem History of adenomatous polyp of colon (590852094) History of adenomatous polyp of colon (Z86.010) Active confirmed Problem Elevated liver enzymes level (221788139) Elevated liver enzymes (R74.8) Active confirmed Problem Fatty liver (795123312) Fatty liver (K76.0) Active confirmed Problem Alcoholic liver disease (38509993) Alcoholic liver disease (K70.9) Active confirmed Problem Gastritis (8801965) Gastritis (K29.70) Active c onfirmed Problem Esophageal reflux finding (122373322) Gastroesophageal reflux (K21.9) Active confirmed Problem Diverticulosis of colon (668111407) Diverticulosis of colon (K57.30) Active confirmed Problem Gastroesophageal reflux disease (000989098) Gastroesophageal reflux disease, unspecified whether esophagitis present (K21.9) Active confirmed Plan Of Treatment Pending Test Test Name Order Date LIVER PROFILE 08/31/2017 IRON + IBC (FE) 08/31/2017 FERRITIN 08/31/2017 CBC w DIFF 08/31/2017 PROTHROMBIN TIME (PT, INR) 08/31/2017 HEPATITIS B, C PROFILE 08/31/2017 SIGOZ-6-UAUGRWGBHYE (A1A) 08/31/2017 MITOCHONDRIAL AB 08/31/2017 SMOOTH MUSCLE ANTIBODIES 08/31/2017 FLUOR. ANTINUCLEAR AB SCREEN (CLAIRE) 08/18 HEPATITIS A ANTIBODY-IGG 08/31/2017 Pathology 01/18/2021 Future Test Test Name Order Date UPPER GI ENDOSCOPY 11/25/2020 COLONOSCOPY 11/25/2020 Insurance Providers Payer Name Payer Address Payer Phone Subscriber Number Group Number Insured Name Patient Relationship to Insured Coverage Start Date Coverage End Date U[employer] [address] [address] [place] [id number] FLORY LIMA Self - patient is the insured Medical (General) History Medical History History ICD Code Hypertension Asthma Denies ND,DM,CVA,renal disease Phobia to needles GERD--occasional--2-3 times per week--pu t on a PPI by ENT Colonoscopy in 08/2015--Dr. Gann--1 tu bular adenoma removed Elevated LFT's---neg. w/u in 09/2017---felt to be EtOH-related and fatty liver Anxiety/Depression Surgical History Surgery Date(Month/Year) Vocal cord polyps
--- OUTSIDE RECORDS SUMMARY | 2025-03-04 17:18 | XMS_ITS | Clinical Summary ---
Author Organization [facility] Address [address] [place] [address] Phone Care Team Providers Care Intake Worker Name Role Phone Pedro Pablo Baker MD Primary Care Provider Allergies No known active allergies Medications acamprosate (CAMPRAL) 333 mg EC tablet Take 1 tablet (333 mg total) by mouth 3 (three) times a day. 4 Active irbesartan-hydr oCHLOROthiazide (AVALIDE) 300-12.5 mg per tablet Take 1 tablet by mouth 1 (one) time each day. 3 Active cyanocobalamin, vitamin B-12, 1,000 mcg tablet, sublingual Take 1,000 mcg by mouth 1 (one) time each day. Active albuterol HFA (PROAIR HFA ; PROVENTIL HFA ; VENTOLIN HFA) 90 mcg/actuation inhaler Inhale 2 puffs by mouth every 4 (four) hours if needed. Active buprenorphine-n aloxone (SUBOXONE) 8-2 mg per SL tablet Place 1 tablet under the tongue 2 (two) times a day. Max Daily Amount: 2 tablets 4 Active cloNIDine (CATAPRES) 0.1 mg tablet Take 1 tablet (0.1 mg total) by mouth 2 (two) times a day if needed for high blood pressure. 4 Active hydrOXYzine HCL (ATARAX) 25 mg tablet Take 1 tablet (25 mg total) by mouth every 8 (eight) hours if needed for itching. 4 Active naloxone (NARCAN) 4 mg/0.1 mL nasal spray Administer 1 each (4 mg total) into affected nostril(s) if needed for opioid reversal. 4 Active lidocaine 4 % patch Apply 1 patch topically 1 (one) time each day. Active sertraline (ZOLOFT) 50 mg tablet Take 1 tablet (50 mg total) by mouth 1 (one) time each day. 3 Active oxyCODONE (ROXICODONE) 5 mg immediate release tablet Take 1 tablet (5 mg total) by mouth every 6 (six) hours if needed for severe pain for up to 3 doses. Max Daily Amount: 20 mg 3 tablet 5 Active Active Problems Problem Noted Date Diagnosed Date Primary hypertension 04/12/2024 Opioid-related disorder 04/12/2024 Moderate persistent asthma without complication 04/12/2024 Ganglion cyst of finger 02/19/2024 Surgical History Surgery Date Site/Laterality Comments OTHER SURGICAL HISTORY 2013 N/A PROCEDURE: NE LARYNGOSCOPY DIRECT OPERATIVE W/BIOPSY Medical History Medical History Date Comments Asthma DX:Asthma Social History Tobacco Use Types Packs/Day Years Used Date Smoking Tobacco: Never Smokeless Tobacco: Never Alcohol Use Standard Drinks/Week Comments Yes 2 (1 standard drink = 0.6 oz pur e alcohol) Comments Unknown Sex and Gender Information Value Date Recorded Sex Assigned at Female 04/12/2024 8:38 AM EST Legal Sex Female 11:02 AM EDT Gender Identity Female 04/12/2024 8:38 AM EST Sexual Orientation Straight 04/12/2024 8: 38 AM EST Last Filed Vital Signs Vital Sign Reading Time Taken Comments Blood Pressure 115/80 04/12/2024 10:23 AM EST Pulse 77 04/12/2024 10:23 AM EST Temperature 36.6 C (97.8 F) 04/12/2024 10:23 AM EST Respiratory Rate 20 04/12/2024 10:23 AM EST Oxygen Saturation 96% 04/12/2024 10:23 AM EST Inhaled Oxygen Concentration - - Weight 74.4 kg (164 lb) 09/05/2023 1:02 PM EDT Height 162.6 cm (5' 4 ) 09/05/2023 1:02 PM EDT Body Mass Index 28.15 09/05/2023 1:02 PM EDT Plan of Treatment Health Maintenance Due Date Last Done Comments Breast Cancer Screening 1961 Colorectal Cancer Screening: Colonoscopy 1961 Cervical Cancer Screening: Pap Smear 1982 RSV Immunization Adult Patients (1 - Risk 50-74 years 1-dose series) 08/05/2011 Zoster Vaccines (1 of 2) 08/05/2011 Pneumococcal Vaccine: 50+ Years (2 of 2 - PCV) 06/03/2020 06/04/2019 Cholesterol Screening (Lipid Panel) 10/12/2023 HIV Screening 10/12/2023 Hepatitis C Screening 10/12/2023 Social Influencers of Health Screening 10/12/2023 Depression Screening 03/20/2024 Hypertension/CHF/CAD Annual BMP Blood Test 04/13/2024 COVID-19 Vaccine ( - season) 2024 02/20/2024, 08/05/2020, 07/08/2020 Influenza Vaccine (#1) 2024 , 12/23/2022, 12/19/2019, Additional history exists DTaP,Tdap,and Td Vaccines (2 - Td or Tdap) 12/15/2027 12/14/2017 HIB Vaccines Aged Out No longer eligi [...] patient's age to complete this topic Meningococcal B Vaccine Aged Out No l onger eligible based on patient's age to complete this topic RSV Immunization Patients Under 20 months Aged Out No longer eligible based on patient's age to complete this topic Varicella Vaccines Aged Out No longer eligible based on patient's age to complete this topic Insurance [facility] [place] [id number] [facility] Care Teams Intake Worker Relationship Specialty Start Date End Date Pedro Pablo Baker MD [address] [place] [address] Drive [address] [place] [phone] PCP - General 03/20/11
== END 2025-03-04 14:25 | disposition home or self-care (01) ==
LOC: HO.HOS 13:15
PROVIDERS: PCP Internal Medicine; Visit Provider Physician Assistant
DX: M17.11 Unilateral primary osteoarthritis, right knee (principal)
CPT/HCPCS: 20610; 99213

== ENCOUNTER → 2025-03-04 13:16 | Outpatient (BNV) | payer OTHER, SELFPAY | PROVIDERS: Visit Provider Radiology Diagnostic Radiology | DX: M17.11 Unilateral primary osteoarthritis, right knee (principal); M25.461 Effusion, right knee | CPT/HCPCS: 73562 ==